=== PATIENT | male | born 1955 | race Caucasian/White ===

== ENCOUNTER 2021-04-14 13:08 | Emergency (ER) | payer OTHER, SELFPAY ==
--- NOTE | ~2021-04-14 | XR_ITS ---
EXAMINATION: XR chest 2V DATE: 04/14/2021 13:32 INDICATION: Left chest pain/pleurisy TECHNIQUE: PA and lateral views of the chest were obtained. COMPARISON: Chest radiograph dated 03/31/[address] dated 03/09/2010 FINDINGS: Unchanged opacity at the lingula corresponding to a pericardial fat and associated lingular discoid a telectasis/scarring. No new airspace opacities, pulmonary edema, pleural effusion or pneumothorax. Si ze is normal. Mildly tortuous thoracic aorta. Moderate thoracic spondylosis with minimal anterior wed ging of a couple mid thoracic vertebral bodies. Postoperative changes at the right humeral head likel y related to prior rotator cuff repair. IMPRESSION: 1. Chronic atelectasis/scarring at the lingula. No acute cardiopulmonary disease. Reviewed, dictated and finalized at location B. IMPRESSION: 1. Chronic atelectasis/scarring at the lingula. No acute cardiopulmonary diseas e.
--- NOTE | 2021-04-14 13:15 | ED.CHESTPAIN ---
HPI - Chest Pain General Chief Complaint: Chest Pain Stated Complaint: L CHEST/SIDE/BACK PAIN Time Seen by Provider: 04/14/21 13:14 Source: patient and RN notes reviewed Limitations: no limitations History of Present Illness HPI narrative: The morbidly obese, vaccinated patient-who is a ex-smoker/nondrinker-- presents with left trunk/chest pains. Patient states he has a long medical history including prostate ca s/p prostatectomy, CHF, proximal A. fib, CKD . Now he has a nearly weeklong history of left axillary chest pain that is worse with breathing, movement or point palpation. Symptoms are mild, radiates somewhat to the scapula area, associated with mild cough that is slightly productive. No med noncompliance, fever, S OB, loss of taste/smell, calf pain/edema, vomiting/diarrhea, anterior/precordial CP, sneezing/ wheezing, frequency/dysuria/hematuria. EKG and chest x-ray with pain are noncontributory He has no known ASHD based upon stress test [ 2019 ,2010] .Patient advised to go to higher level care facility for higher level testing for vascular, cardiac, pulmonary causes-which he declines AMA. Related Data Home Medications Medication Instructions Recorded Confirmed allopurinol 04/14/21 bumetanide 04/14/21 dextroamphetamine-amphetamine 04/14/21 gabapentin 04/14/21 glimepiride 04/14/21 spironolactone 04/14/21 Allergies Allergy/AdvReac Type Severity Reaction Status Date / Time No Known Allergies Allergy Unknown Verified 05/15/06 19:47 Review of Systems Review of Systems: General/Constitutional: No weight loss,fever Eyes: N0: Redness,discharge Ears/Nose/Throat: No: Epistaxis,ear discharge Respiratory: Denies: Hemoptysis Gastrointestinal: No Vomiting, Bleeding-rectal Skin: No Lumps, eruption Neurologic: No Focal Weakness,Sz Hematologic: Denies: Petechiae/Purpura Psychiatric: No: Suicida ideationl All Other Systems: Reviewed and Negative PMFSH Comments At time of signature, agree with nursing past medical, surgical, social and family history. There is no relevant family history pertinent to the presenting complaint Exam Narrative: General Appearance: Obese, No distress-splints with deep breath EYE: PERRLA, Conjunctiva clear Ears: External ear normal Nose: Normal nose Mouth/Throat: Normal appearing, Normal lips Neck: Supple Respiratory: Airway patent, No respiratory distress, decreased BS at bases jannet left, scattered wheezing forced expiration increased AP diameter Cardiovascular: RRR, no edema, pulses symmetric Abdomen: Soft, Non-tender, Musculoskeletal: Full stength Skin: Warm, Dry Neurological: A&O x3, CN II-X intact Psychiatric: Normal mood, Normal affect Course Course Emergency Course: Films visualized, interpreted by radiologist, agree, noncontributory see report EKG?borderline: NSR at 72, LAD -30, QRS 0.10, QTC 0.415 Vital Signs Vital signs: Vital Signs Temperature 98.4 F 04/14/21 13:32 Pulse Rate 89 04/14/21 13:32 Respiratory Rate 18 04/14/21 13:32 Blood Pressure 114/89 04/14/21 13:32 Pulse Oximetry 96 04/14/21 13:32 Temperature 98.4 F 04/14/21 13:32 Pulse Rate 89 04/14/21 13:32 Respiratory Rate 18 04/14/21 13:32 Blood Pressure 114/89 04/14/21 13:32 Pulse Oximetry 96 04/14/21 13:32 MDM - Chest Pain Lab Data Labs: Lab Results 04/14/21 Range/Units 14:00 POC SARS CoV-2 Ag Negative (Negative) Discharge Plan Discharge Clinical Impression: Left-sided chest pain Patient Disposition: Left Against Medical Advice Condition: Guarded Prognosis Instructions: Chest Pain (ED), Pleurisy (ED) Prescriptions: New azithromycin 250 mg tablet See Rx Instructions .ROUTE .COMPLEX Qty: 6 RF: 0 prednisone 20 mg tablet 60 mg PO DAILY Qty: 15 RF: 0 albuterol sulfate [Ventolin HFA] 90 mcg/actuation HFA aerosol inhaler 2 puff INHALATION QID PRN (Reason: shortness of breath or wheezing) Qty: 8.5
[2021-04-14 13:32] VITALS: BP 114/89; PULSE 89; RESP 18; TEMP 36.9; O2SAT 96
--- NOTE | 2021-04-14 13:32 | ECG_ITS ---
Measurements Intervals [place] Rate: 72 P: -32 WA: 135 QRS: -27 QRSD: 105 T: 49 QT: 391 QTc: 429 Interpretive Statements SINUS RHYTHM NORMAL ECG Electronically Signed On 04-14-2021 13:45:00 CDT by Pete Finnegan D.O.
[2021-04-14] MEDS: KETOROLAC (*BKC) 60 MG/2 ML VIAL 30 MG IM (14:27)
--- NOTE | 2021-04-14 14:38 | PC.NURSE ---
Unable to scan Toradol 30 mg IM once into OCT when given. At that time there were duplicate toradol orders in. Pharmacy contacted, and removed additional orders. Aware that only the toradol 30 mg IM once was given.
[2021-04-15 20:01] LABS: SARS-CoV-2 RNA PCR Negative
== END 2021-04-14 15:03 | disposition left against medical advice (07) ==
PROVIDERS: Emergency Provider Emergency Medicine
DX: R07.89 Other chest pain (principal); Z20.822 Contact with and (suspected) exposure to COVID-19; I48.91 Unspecified atrial fibrillation; Z85.46 Personal history of malignant neoplasm of prostate; Z90.79 Acquired absence of other genital organ(s); I50.9 Heart failure, unspecified; E11.22 Type 2 diabetes mellitus with diabetic chronic kidney disease; N18.9 Chronic kidney disease, unspecified
CPT/HCPCS: 71046; 87426; 93005; 96372; 99203; C9803; G0463; J1885; U0003; U0005

== ENCOUNTER 2022-03-04 15:31 | Emergency (ER) | payer MEDICARE, BC, SELFPAY ==
--- NOTE | ~2022-03-04 | XR_ITS ---
EXAMINATION: XR hip LT min 2V DATE: 03/04/2022 16:18 INDICATION: Nontraumatic left hip pain TECHNIQUE: Anteroposterior view of the pelvis and anteroposterior, frog leg and cross-table lateral v iews of the left hip were obtained. COMPARISON: None. FINDINGS: Alignment is normal. No fracture. No suspected avascular necrosis. Left hip joint space appears cayetano l. IMPRESSION: 1. Negative left hip radiographs. Reviewed, dictated and finalized at location B.
--- NOTE | ~2022-03-04 | XR_ITS ---
XR lumbar spine 2-3V DATE: 03/04/2022 16:18 INDICATION: Back pain. No injury. TECHNIQUE: AP, lateral, coned lateral lumbosacral views COMPARISON: None FINDINGS: Normal alignment of the lumbar spine. No fracture or bone destruction or spondylolisthesis. The lumbar pedicles are intact. There is moderate degenerative disc disease at L1-2 and L2-3 and L3-4 and severe degenerative disease at L4-5 and L5-S1. There is degenerative change at the lower lumbar and lumbosacral apophyseal joints. The sacroiliac joints appear normal. IMPRESSION: Multilevel degenerative disc disease, severe at L4-5 and L5-S1 Reviewed, dictated and finalized at location A.
[2022-03-04 15:45] VITALS: BP 208/193; PULSE 85; RESP 16; TEMP 37; O2SAT 99
--- NOTE | 2022-03-04 15:46 | ED.BACK ---
HPI - Back Pain/Injury General Chief Complaint: Back Pain/Injury Stated Complaint: lower back and left hip pain Source: patient Mode of arrival: ambulatory Limitations: no limitations History of Present Illness HPI Narrative: 66-year-old male with chronic low back pain and hx DDD presented for complaint of bilateral lower back pain worsening since December of this year. States this pain is different from the chronic pain, states it feels lower. Also endorses left lateral hip pain. Denies new injury. Pain is constant, sharp, rates 6-10/10. Worse after sitting for long periods or sleeping. Has taken 2 pain pills, he thinks they are Tylenol #3, which he had prescribed for previous injury. Denies associated lower extremity numbness, tingling, weakness, saddle paresthesia or change in bowel or bladder function, abd pain, n/v/d/f/c. He has chronic urinary incontinence secondary to history of prostate cancer. Lives in [place], where his pcp is located. Related Data Home Medications Medication Instructions Recorded Confirmed allopurinol 300 mg tablet 300 mg PO DAILY 04/14/21 03/04/22 bumetanide 2 mg tablet 2 mg PO DAILY 04/14/21 03/04/22 gabapentin 300 mg capsule 2 mg PO TID 04/14/21 03/04/22 glimepiride 4 mg PO BID 04/14/21 03/04/22 spironolactone 25 mg tablet 25 mg PO BID 04/14/21 03/04/22 Allergies Allergy/AdvReac Type Severity Reaction Status Date / Time No Known Allergies Allergy Unknown Verified 03/04/22 15:48 Review of Systems Review of Systems: CONSTITUTIONAL: Denies fever, chills EYES: Denies visual changes CARDIOVASCULAR: Denies chest pain, palpitations, or edema. RESPIRATORY: Denies cough or dyspnea. GASTROINTESTINAL: Denies abdominal pain, nausea, vomiting, or diarrhea. SKIN: Denies rash or wounds. MUSCULOSKELETAL: endorses back pain, joint pain NEUROLOGIC: Denies headache, numbness, tingling, or weakness. All systems reviewed & are unremarkable except as noted in HPI and below PMFSH Comments At time of signature, I have reviewed and agree with nursing past medical, surgical, social and family history unless otherwise noted. Please see nursing chart for further information. There is no relevant family history pertinent to the presenting complaint Exam Narrative: GENERAL: Well-appearing, appears in pain EYES: conjunctivae clear CHEST: Speaks in full sentences. No respiratory distress. HEART: Regular rate and rhythm. Normal and equal peripheral pulses. MUSC: BLEs have normal strength and sensation, No vertebral point or paraspinal tenderness. Left hip tender with deep palpation at SI joint. No open wounds or obvious deformity; spinal alignment normal. skin warm, dry, pink. Capillary refill less than 3 seconds. Transfers from lying to sitting to standing. Steady slow gait. SKIN: Warm, dry, no rash. NEURO: Alert and oriented x3. PSYCH: Normal mood and affect Course Course Emergency Course: Patient is aware of diagnosis, understands and agrees to treatment plan. Anticipatory guidance given. Patient agrees to follow-up as directed and is aware of reasons to seek care at the emergency department. Portions of this record may have been created with voice recognition software Level of Care: Express Care Visit Vital Signs Vital signs: Vital Signs Temperature 98.6 F 03/04/22 15:45 Pulse Rate 85 03/04/22 15:45 Respiratory Rate 16 03/04/22 15:45 Blood Pressure 208/193 H 03/04/22 15:45 Pulse Oximetry 99 03/04/22 15:45 Temperature 98.6 F 03/04/22 15:48 Pulse Rate 85 03/04/22 15:48 Respiratory Rate 16 03/04/22 15:48 Blood Pressure 208/193 H 03/04/22 15:48 Pulse Oximetry 99 03/04/22 15:48 Reviewed MDM - Back Pain/Injury MDM Narrative Medical decision making narrative: Xrays reviewed with pt. advised supportive measures for pain and signs/symptoms to go to the ER. No risk factors or findings concerning for epidural abscess, diskitis, vertebral osteomyelitis, cord compression,
[2022-03-04 15:48] VITALS: BP 208/193; PULSE 85; RESP 16; TEMP 37; O2SAT 99
[2022-03-04] MEDS: KETOROLAC (*BKC) 60 MG/2 ML VIAL IM (16:22)
[2022-03-04 16:58] VITALS: BP 128/90
== END 2022-03-04 17:07 | disposition home or self-care (01) ==
PROVIDERS: Emergency Provider Nurse Practitioner Family
DX: M54.50 Low back pain, unspecified (principal); M25.552 Pain in left hip; I50.9 Heart failure, unspecified; Z86.16 Personal history of COVID-19; M19.90 Unspecified osteoarthritis, unspecified site; E11.9 Type 2 diabetes mellitus without complications; Z90.79 Acquired absence of other genital organ(s)
CPT/HCPCS: 72100; 73502; 96372; 99214; G0463; J1885

== ENCOUNTER 2023-02-24 11:35 | Emergency (ER) | payer MEDICARE, BC, SELFPAY ==
--- NOTE | ~2023-02-24 | XR_ITS ---
EXAMINATION: XR chest 2V DATE: 02/24/2023 12:11 INDICATION: Shortness of breath. Chest congestion. Cough. TECHNIQUE: Frontal and lateral views of the chest were obtained on 3 radiographs. COMPARISON: Chest 2 views 04/14/2021 FINDINGS: The chest demonstrates clear lungs without pneumonia, pleural effusion, or pneumothorax. Th e heart size is normal. There are prominent paracardial fat pads. There are suture anchors in right h umeral head. IMPRESSION: 1. No acute cardiopulmonary disease. Reviewed, dictated and finalized at location A.
[2023-02-24 11:53] VITALS: BP 108/72; PULSE 81; RESP 20; TEMP 36.6; O2SAT 95
--- NOTE | 2023-02-24 11:58 | ED.URI ---
HPI - URI/Sore Throat General Chief Complaint: Upper Respiratory Infection Stated Complaint: Chest congestion; Pain in chest; SOB Time Seen by Provider: 02/24/23 11:58 Source: patient Mode of arrival: ambulatory Limitations: no limitations History of Present Illness HPI Narrative: 67-year-old male with history of congestive heart failure, high blood pressure presents today with complaint of cough, chest congestion for the past 2 weeks. He reports symptoms became worse the past 2 days with shortness of breath on exertion. Afebrile. Denies nasal congestion, sinus pressure, sore throat, ear pain. Taking titr-wzb-ycqmxla Mucinex with no relief of symptoms. Denies nausea vomiting diarrhea. No recent changes to medication doses. Patient states that he weighs himself often due to his congestive heart failure. He reports that he has never had an exacerbation of his CHF. No recent changes to his weight. No lower extremity swelling. All systems reviewed and negative except as noted above. Related Data Home Medications Medication Instructions Recorded Confirmed allopurinol 300 mg tablet 300 mg PO DAILY 04/14/21 02/24/23 bumetanide 2 mg tablet 2 mg PO DAILY 04/14/21 02/24/23 gabapentin 300 mg capsule 2 mg PO TID 04/14/21 02/24/23 glimepiride 4 mg PO BID 04/14/21 02/24/23 spironolactone 25 mg tablet 25 mg PO BID 04/14/21 02/24/23 Allergies Allergy/AdvReac Type Severity Reaction Status Date / Time No Known Allergies Allergy Unknown Verified 02/24/23 11:48 Review of Systems Review of Systems: CONSTITUTIONAL: Denies fever, chills, or sweats. EYES: Denies visual changes, redness, or discharge. ENT: Denies rhinorrhea, congestion, sore throat, or otalgia. CARDIOVASCULAR: Denies chest pain, palpitations, or edema. RESPIRATORY: Reports cough, chest congestion and dyspnea on exertion. GASTROINTESTINAL: Denies abdominal pain, nausea, vomiting, or diarrhea. GENITOURINARY: Denies dysuria or hematuria. SKIN: Denies rash or itching. MUSCULOSKELETAL: Denies back pain, joint pain, or myalgia. NEUROLOGIC: Denies headache, numbness, or weakness. PSYCHIATRIC: Denies anxiety or depression. All other systems reviewed are negative, except as documented in HPI. PMFSH Comments At time of signature, agree with nursing past medical, surgical, social and family history. There is no relevant family history pertinent to the presenting complaint. Exam Narrative: GENERAL: This is a well-nourished, well-developed patient, in no apparent distress. HEAD: normocephalic, atraumatic. EYES: PERRL. Sclera clear/white. Vision is grossly intact. EARS: External ears normal, auditory canals clear and without drainage, TMs normal without perforation. Hearing grossly intact. NOSE: External nose normal with no obvious nasal discharge, nares without redness, no rhinorrhea. THROAT: Mucous membranes moist, posterior pharynx clear. NECK: Neck supple, non-tender without lymphadenopathy, masses or thyromegaly. CARDIOVASCULAR: Regular rate and rhythm without murmurs, gallops, or rubs. RESPIRATORY: wet, coarse lung sounds throughout all lung gaitan on inspiration and expiration. No wheezes. SKIN: warm, Dry, intact with no suspicious lesions or rash, good texture and turgor. NEURO: awake, alert, and oriented to person, place and time. There were no obvious focal neurologic abnormalities. EXTREMITIES: No joint tenderness, effusion, or edema noted. Course Course Level of Care: Express Care Visit Vital Signs Vital signs: Vital Signs Temperature 36.6 C 02/24/23 11:53 Pulse Rate 81 02/24/23 11:53 Respiratory Rate 02/24/23 11:53 Blood Pressure 108/72 02/24/23 11:53 Pulse Oximetry 95 02/24/23 11:53 Temperature 36.6 C 02/24/23 11:53 Pulse Rate 81 02/24/23 11:53 Respiratory Rate 20 02/24/23 11:53 Blood Pressure 108/72 02/24/23 11:53 Pulse Oximetry 95 02/24/23 11:53 Reviewed MDM - URI/Sore Throat MDM Narrative Medic
[2023-02-24] MEDS: ALBUTEROL SULFATE NEB 2.5 MG/3 ML INH INHALATION (12:47)
== END 2023-02-24 13:06 | disposition home or self-care (01) ==
PROVIDERS: Emergency Provider Nurse Practitioner Family
DX: J20.9 Acute bronchitis, unspecified (principal); M19.90 Unspecified osteoarthritis, unspecified site; I13.0 Hypertensive heart and chronic kidney disease with heart failure and stage 1 through stage 4 chronic kidney disease, or unspecified chronic kidney disease; E11.22 Type 2 diabetes mellitus with diabetic chronic kidney disease; N18.31 Chronic kidney disease, stage 3a; I50.9 Heart failure, unspecified; Z79.84 Long term (current) use of oral hypoglycemic drugs; E11.42 Type 2 diabetes mellitus with diabetic polyneuropathy; Z90.79 Acquired absence of other genital organ(s); Z86.16 Personal history of COVID-19
CPT/HCPCS: 71046; 94640; 99213; G0463

== ENCOUNTER 2024-07-27 18:11 | Emergency (ER) | payer MEDICARE, BC, SELFPAY ==
--- NOTE | ~2024-07-27 | XR_ITS ---
EXAMINATION: XR shoulder LT min 2V DATE: 07/27/2024 18:56 INDICATION: Fall. TECHNIQUE: 4 views of left shoulder were obtained. COMPARISON: None. FINDINGS: Alignment is normal. No fracture. There is mild osteoarthritis of glenohumeral joint and ac romioclavicular joint. IMPRESSION: 1. Mild polyarticular osteoarthritis. Reviewed, dictated and finalized at location A. PRESS HAND
[2024-07-27 18:23] VITALS: BP 115/63; PULSE 93; RESP 16; TEMP 36.6; O2SAT 98
--- NOTE | 2024-07-27 18:48 | ED_ITS ---
HPI - Extremity Injury (Upper) General Chief Complaint: Extremity Injury, Upper Stated Complaint: Left Shoulder Pain Time Seen by Provider: 07/27/24 18:29 Source: patient and RN notes reviewed Mode of arrival: ambulatory Limitations: no limitations History of Present Illness HPI narrative: Patient presents today complaining of left shoulder pain. Two days ago he was coming down some steps into his garage, slipped and fell onto his left side, primarily on the elbow. He is complaining of left shoulder pain that he currently rates it 3/10 at rest, but increases significantly with movement. Denies numbness or tingling in the arm or fingers. He has not tried any [id number]-[id number] treatment prior to arrival. Related Data Home Medications Medication Instructions Recorded Confirmed allopurinol 300 mg tablet 300 mg PO DAILY 04/14/21 02/24/23 bumetanide 2 mg tablet 2 mg PO DAILY 04/14/21 02/24/23 gabapentin 300 mg capsule 2 mg PO TID 04/14/21 02/24/23 glimepiride 4 mg PO BID 04/14/21 02/24/23 spironolactone 25 mg tablet 25 mg PO BID 04/14/21 02/24/23 Allergies Allergy/AdvReac Type Severity Reaction Status Date / Time No Known Allergies Allergy Unknown Verified 02/24/23 11:48 Review of Systems Review of Systems: CONSTITUTIONAL: Denies body aches, fever, chills, or sweats. EYES: Denies visual changes, redness, or discharge. ENT: Denies rhinorrhea, congestion, sore throat, or otalgia. CARDIOVASCULAR: Denies chest pain, palpitations, or edema. RESPIRATORY: Denies cough or dyspnea. GASTROINTESTINAL: Denies abdominal pain, nausea, vomiting, or diarrhea. GENITOURINARY: Denies dysuria or hematuria. SKIN: Denies rash, itching, or wounds. MUSCULOSKELETAL: Denies back pain.+ left shoulder injury NEUROLOGIC: Denies headache, numbness, tingling, or weakness. PSYCH: Denies depression or anxiety. [facility] Past Medical History Medical History (Updated 07/28/24 @ 00:01 by Background Daemon) Diabetes Gout Comments At time of signature, I have reviewed and agree with nursing past medical, surgical, social and family history unless otherwise noted. Please see nursing chart for further information. There is no relevant family history pertinent to the presenting complaint Exam Narrative: GENERAL: Well-appearing, well-nourished, and in no acute distress. HEAD: Normocephalic, atraumatic. EYES: EOMI. No redness or drainage. Conjunctivae normal. ENT: Mucous membranes pink and moist. NECK: Normal AROM. Supple. No lymphadenopathy. No tenderness to the neck. CHEST: No respiratory distress. MUSCULOSKELETAL: No bony tenderness. EXTREMITIES: Left shoulder: Tenderness anteriorly and posteriorly. Pain with range of motion at approximately 90? P ROM. Pain with internal and external rotation passively. Distal sensation intact. Capillary refill normal. Radial pulse normal. No tenderness to palpation of the biceps or triceps. SKIN: Warm, dry, no rash. Capillary refill normal. Normal skin turgor. NEURO: No focal deficits. Alert and oriented x3. Gait steady. PSYCH: Normal affect. No signs of depression or anxiety. Course Course Emergency Course: 1909- Notified that PACS system not working. Unable to receive patient's x-ray report tonight. He will be discharged and call tomorrow with results. 07/28/24-patient notified of x-ray results. Level of Care: Express Care Visit Vital Signs Vital signs: Vital Signs Temperature 97.9 F 07/27/24 18:23 Pulse Rate 93 07/27/24 18:23 Respiratory Rate 16 07/27/24 18:23 Blood Pressure 115/63 07/27/24 18:23 Pulse Oximetry 98 07/27/24 18:23 Temperature 97.9 F 07/27/24 18:23 Pulse Rate 93 07/27/24 18:23 Respiratory Rate 16 07/27/24 18:23 Blood Pressure 115/63 07/27/24 18:23 Pulse Oximetry 98 07/27/24 18:23 Reviewed MDM - Extremity Injury (Upper) MDM Narrative Medical decision making narrative: Shoulder x-ray shows mild arthritis, but is otherwise normal. Patient has been instructed to follow-up with orthopedics for further evaluation and treatment. Anticipatory guidance given. Differential Diagnosis Differential diagnosis: Likely other (Humerus fracture, rotator cuff sprain, rotator cuff tear) Imaging Data Radiologist's impression: ITS Impressions Shoulder X-Ray 07/27/24 20:30 IMPRESSION: 1. Mild polyarticular osteoarthritis. Critical Care Time Critical Care Time Critical Care Time: No Discharge Plan Discharge Clinical Impression: Injury of left shoulder Patient Disposition: Home, Self-Care Condition: Stable Instructions: Rotator Cuff Injury (ED) Additional Instructions: As discussed, your x-ray report cannot be obtained tonight, but tomorrow you will be notified as soon as the report is available. Take Tylenol for pain if needed. Follow-up with orthopedics if pain persists. Prescriptions: No Action bumetanide 2 mg tablet 2 mg PO DAILY spironolactone 25 mg Tablet 25 mg PO BID gabapentin 300 mg Capsule 2 mg PO TID allopurinol 300 mg tablet 300 mg PO DAILY glimepiride 4 mg PO BID tramadol 50 mg tablet 50 mg PO Q8H PRN (Reason: pain) Qty: 15 0RF albuterol sulfate 90 mcg/actuation HFA aerosol inhaler 2 puff inhalation QID PRN (Reason: shortness of breath or wheezing) Qty: 8.5 0RF (DME) Aerochamber Plus Z Stat Spacer See Rx Instructions .Route Qty: 1 0RF Rx Instructions: As directed doxycycline hyclate 100 mg capsule 100 mg PO BID 7 Days Qty: 14 0RF prednisone 20 mg tablet 40 mg PO DAILY 5 Days Qty: 10 0RF Follow-up/Referrals: Jeff Desai MD [Physician] - PHYSICIAN,[employer] WORKER [Primary Care Provider] - Time of Disposition: 19:23
== END 2024-07-27 19:24 | disposition home or self-care (01) ==
PROVIDERS: Emergency Provider Nurse Practitioner
DX: S49.92XA Unspecified injury of left shoulder and upper arm, initial encounter (principal); W10.9XXA Fall (on) (from) unspecified stairs and steps, initial encounter; E11.9 Type 2 diabetes mellitus without complications; M10.9 Gout, unspecified
CPT/HCPCS: 73030; 99213; G0463

== ENCOUNTER 2025-02-26 12:58 | Emergency (ER) | payer MEDICARE, BC, SELFPAY ==
--- NOTE | ~2025-02-26 | CT_ITS ---
EXAMINATION: CTA chest abdomen pelvis DATE: 02/26/2025 14:53 INDICATION: Chest pain radiating to the back TECHNIQUE: Computed tomographic angiography (CTA) of the chest, abdomen, and pelvis was performed wit hout and with 100 mL Omnipaque-350 intravenous contrast. Automated exposure control and iterative rec onstruction technique were employed. The dose-length product was 1652.51 mGy-cm. COMPARISON: CT dated 03/09/2010 FINDINGS: Chest: Discoid atelectasis in lingula along side a small left paracardial fat pad with additional smaller re gion of scattered linear discoid atelectasis in both lungs. Chronic mosaic attenuation in both lungs most likely atelectasis with mild air trapping related to expiratory phase of imaging with convex con figuration of the posterior wall of the trachea and with differential including bronchiolitis. Unchan ged 5 mm noncalcified granulomata the lateral basilar right lower lobe. No pneumonia, pulmonary edema , pleural effusion or pneumothorax. Heart size is normal. No pericardial effusion. Thoracic aorta is normal in caliber with no dissection. Enlargement of the central pulmonary arteries consistent with p ulmonary arterial hypertension. No pathologically enlarged thoracic lymphadenopathy. Severe lower cer vical and moderate to severe thoracic spondylosis. Abdomen and pelvis: Diffuse hepatic steatosis with 3.2 cm subtle higher attenuation lesion in the right hepatic lobe whic h appears to been present on CT dated 03/09/2010 consistent with a benign lesion most likely focal fat ty sparing. Spleen, pancreas and bilateral adrenal glands are normal. Likely age-related mild bilater al renal atrophy. Status post prostatectomy. Bladder is normal. Bowels including the appendix are nor mal. Incompletely visualized at least moderate-sized bilateral fat-containing inguinal hernias. No fr ee intraperitoneal gas or fluid. No pathologically enlarged abdominal or pelvic lymphadenopathy. [place] aorta and the arteries arising from the aorta are normal in caliber with no dissection or hemod ynamically significant stenosis. Severe lumbar spondylosis. IMPRESSION: 1. Normal caliber thoracic and abdominal aorta with no or aneurysm or dissection. 2. Unchanged mild mosaic attenuation lungs likely related to expiratory phase of imaging. No acute ca rdiopulmonary disease. 3. Prominent diffuse hepatic steatosis with 3.2 cm lesion in the right hepatic lobe which appears to been present since 2009 most consistent with benign neoplasm or more likely focal fatty sparing. Coul d consider further evaluation with pre and postcontrast MRI as clinically indicated. 4. Bilateral fat-containing inguinal hernias. Reviewed, dictated and finalized at location A. IMPRESSION: 1. Normal caliber thoracic and abdominal aorta with no or aneurysm or dissectio n. 2. Unchanged mild mosaic attenuation lungs likely related to expiratory phase o f imaging. No acute cardiopulmonary disease. 3. Prominent diffuse hepatic steatosis with 3.2 cm lesion in the right hepatic lobe which appears to been present since 2009 most consistent with benign neopl asm or more likely focal fatty sparing. Could consider further evaluation with pre and postcontrast MRI as clinically indicated. 4. Bilateral fat-containing inguinal hernias.
--- NOTE | ~2025-02-26 | XR_ITS ---
EXAM/PROCEDURE: XR chest 2V - 02/26/2025 13:20 CDT HISTORY: 69 years old Male with cp TECHNIQUE: Two view(s) of the chest. COMPARISON: None available. FINDINGS: LUNGS/ PLEURA: No focal consolidation. No appreciable pneumothorax or large pleural effusion. HEART/ MEDIASTINUM: Heart appears normal in size. BONES: Degenerative changes. Postsurgical changes are seen in the right humerus. OTHER: Visualized upper abdomen is unremarkable. Tortuous aorta. IMPRESSION: No acute process. Reviewed, dictated and finalized at location A. IMPRESSION: No acute process.
--- NOTE | 2025-02-26 12:59 | ECG_ITS ---
Test Date: 2025-02-26 13:04:30 Measurements Intervals [place] Rate: 75 P: 67 [place]: 146 QRS: -34 QRSD: 109 T: 63 QT: 385 QTc: 430 Interpretive Statements SINUS RHYTHM WITH OCCASIONAL SUPRAVENTRICULAR PREMATURE COMPLEXES MARKED LEFT AXIS DEVIATION [QRS AXIS < -30] POSSIBLE LATERAL MYOCARDIAL INFARCTION , PROBABLY OLD [30 ms Q WAVE IN I/aVL/V5/V6] No previous ECG available for comparison Electronically Signed On 02-27-2025 11:33:45 CDT by Sudarshan Field M.D.
[2025-02-26 13:00] VITALS: BP 105/65; PULSE 83; RESP 16; TEMP 36.6; O2SAT 97
--- OUTSIDE RECORDS SUMMARY | 2025-02-26 13:01 | XMS_ITS | Patient Health Record ---
Author Organization [facility] Address [address] [place] [address] Care Team Providers Care Historic Interpreter Name Role Phone Norris Ayala Unavailable [phone] Kameron Lopez PA-C Unavailable Unavailable Reason For Referral No Information Medications Medication SIG (Take, Route, Frequency, Duration) Notes Start Date End Date Status Spironolactone Activ e Glimepiride Active Iron Active Sildenafil Citrate 20 MG Tablet once a day Oral once a day 10/27/2016 Not-Taking metFORMIN HCl 1000 MG Tablet Oral 10/17/2016 Not-Taking Potassium Chloride ER 10 MEQ Capsule Extended Release Oral 10/14/2016 Not-Taking Furosemide 80 MG Tablet Oral 04/07/2014 Active Triamterene-HCTZ 75-50 MG Tablet Oral 04/07/2014 Active Allopurinol 300 MG Tablet Oral 04/07/2014 Active Bumetanide 2 MG Tablet Oral 10/17/2016 Active Social History Social History Tobacco and Alcohol Use: Social Info Question Answer Notes Tobacco Use Tobacco Use None Alcohol Use Current Alcohol Use: No Problems Problem Type SNOMED Code ICD Code Onset Dates Problem Status W/U Status Risk Notes Problem Malignant neoplasm of prostate (090131874) Malignant neoplasm of prostate (C61) 04/25/20 14 Active confirmed [id number] Problem Erectile dysfunction following radical prostatectomy (460220631987562) Erectile dysfunction following radical prostatectomy (N52.31) 01/02/20 15 Active confirmed [id number]- Problem Postprocedural membranous urethral stricture (610960908204509) 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) 10/20/19 17 Active confirmed [id number]- Problem Gross hematuria (542166752) Gross hematuria (R31.0) 10/20/19 17 Active confirmed [id number]- Problem Frequency of micturition (660512006) Frequency of micturition (R35.0) 10/28/19 17 Active confirmed [id number]- Problem Nodular prostate w/ urinary obstruction (600.11) 04/03/20 14 Active confirmed [id number]- Problem Elevated PSA (941592004) Elevated PSA (790.93) 04/03/20 14 Problem resolved confirmed [id number]- Plan Of Treatment Pending Test Test Name Order Date Urinalysis 02/24/2020 Insurance Providers Payer Name Payer Address Payer Phone Subscriber Number Group Number Insured Name Patient Relationship to Insured Coverage Start Date Coverage End Date Medicare [address] [place] [address] [id number] Norris Paz Self - patient is the insured [facility] and [facility] [address] [place], [place] [phone] [id number] Norris Paz Self - patient is the insured Medical (General) History Medical History History ICD Code CHF PHA type 2 diabetes kidney disease Surgical History Surgery Date(Month/Year) prostatectomy
--- OUTSIDE RECORDS SUMMARY | 2025-02-26 13:02 | XMS_ITS | Referral Summary ---
Author Organization [address] Address [address] [place] [address] Care Team Providers Care Mexican Food Maker Name Role Phone Braden Mckeon MD Primary Care Provi olinda Encounters Date Type Department Care Team Description 02/16/2025 Results Follow-Up [facility] Medical [facility] Primary Care at [address] [id number] Braden Mckeon MD PSA screen, Lipid panel, CBC with auto differential, Additional followed-up results: 11 02/13/2025 2:40 PM CDT Lab [facility] - [facility] at [place] [id number] Screening PSA (prostate specific antigen); Type 2 diabetes mellitus without complication, without long-term current use of insulin (HCC); Inflammatory arthritis; Chronic gout without tophus, unspecified cause, unspecified site 02/13/2025 2:00 PM CDT Office Visit [facility] Primary Care at [address] [place] [address] Braden Mckeon MD Type 2 diabetes mellitus without complication, without long-term current use of insulin (HCC) (Primary Dx); Chronic gout without tophus, unspecified cause, unspecified site; Chronic systolic congestive heart failure (HCC); Class 2 severe obesity due to excess calories with serious comorbidity and body mass index (BMI) of 38.0 to 38.9 in adult (HCC); Inflammatory arthritis; Paroxysmal atrial fibrillation (HCC); Screening PSA (prostate specific antigen) from Last 3 Months Allergies No known active allergies Medications bumetanide (BUMEX) 2 mg tablet Take 1 tablet (2 mg total) by mouth 2 (two) times a day Active gabapentin (NEURONTIN) 600 mg tablet Take 1 tablet (600 mg total) by mouth 3 (three) times a day Active glimepiride (AMARYL) 4 mg tabletIndications: type 2 diabetes mellitus Take 1 tablet (4 mg total) by mouth 2 (two) times a day Active spironolactone (ALDACTONE) 25 mg tablet Take 1 tablet (25 mg total) by mouth 2 (two) times a day Active allopurinoL (ZYLOPRIM) 300 mg tablet Take 1 tablet (300 mg total) by mouth daily Active rosuvastatin (CRESTOR) 20 mg tabletIndications: Mixed hyperlipidemia Take 1 tablet (20 mg total) by mouth daily 90 tablet 1 5 08/17/20 25 Active metFORMIN (GLUCOPHAGE) 500 mg tabletIndications: Type 2 diabetes mellitus without complication, without long-term current use of insulin ([facility]) Take 1 tablet (500 mg total) by mouth 2 (two) times a day with meals 180 tablet 1 5 08/17/20 25 Active dextroamphetamine- amphetamine (ADDERALL) 20 mg tablet Take 1 tablet (20 mg total) by mouth daily 30 tablet 5 03/27/20 25 Active dextroamphetamine- amphetamine (ADDERALL) 20 mg tablet 0 5 02/26/20 25 Discontinu ed(Reorder ) Active Problems Problem Noted Date Diagnosed Date Type 2 diabetes mellitus wit hout complication, without long-term current use of insulin 02/13/2025 Assessment & Plan (02/13/2025 2:28 PM CDT): Orders: Lipid panel; Future Comprehensive metabolic panel; Future Hemoglobin A1c; Future C-peptide; Future TSH; Future Chronic systolic congestive heart failure 2024 Assessment & Plan (02/13/2025 2:28 PM CDT): Chronic gout without tophus 02/13/2025 Assessment & Plan (02/13/2025 2:28 PM CDT): Orders: Uric acid; Future Class 2 severe obesity due t o excess calories with serious comorbidity and body mass index (BMI) of 38.0 to 38.9 in adult 02/13/2025 Assessment & Plan (02/13/2025 2:28 PM CDT): Paroxysmal atrial fibrillation 02/13/2025 Assessment & Plan (02/13/2025 2:28 PM CDT): Inflammatory arthritis 02/13/2025 Assessment & Plan (02/13/2025 2:28 PM CDT): Orders: CBC with auto differential; Future NATASHA ab ql w/rflx to NATASHA qn; Future Erythrocyte sedimentation rate; Future Cyclic citrul peptide antibody, IgG; Future CRP (acute phase); Future Immunizations Immunization Administration Dates Next Due Influenza, Unspecified 05/30/2024(Deferred: Louise ent Refused) Social History Tobacco Use Types Packs/Day Years Used Date Smoking Tobacco: Never Passive Smoke Exposure: Never Smokeless Tobacco: Never Tobacco Cessation:Counseling Given: Not Answered PHQ-2 Answer Date Recorded PHQ-2 Total Score (If total score is 3 or more points, staff should administer the PHQ-9) 0 02/13/2025 PHQ-9 Answer Date Recorded PHQ-9 Total Score 0 02/13/2025 Sex and Gender Information Value Date Recorded Sex Assigned at Not on file Legal Sex Male 4:50 PM [employer]IST[employer] Gender Identity Not on file Sexual Orientation Not on file Last Filed Vital Signs Vital Sign Reading Time Taken Comments Blood Pressure 102/60 02/13/2025 1:45 PM CDT Pulse 95 02/13/2025 1:45 PM CDT Temperature - - Respiratory Rate - - Oxygen Saturation 95% 02/13/2025 1:45 PM CDT Inhaled Oxygen Concentration - - Weight 127.5 kg (281 lb) 02/13/2025 1:45 PM CDT Height 182.9 cm (6') 02/13/2025 1:45 PM CDT Body Mass Index 38.11 02/13/2025 1:45 PM CDT Plan of Treatment Not on file Procedures Procedure Name Priority Date/Time Associated Diagnosis Comments EGFR Routine 02/13/2025 2:47 PM CDT Type 2 diabetes mellitus without complication, without long-term current use of insulin (HCC) DIFFERENTIAL AUTO Routine 02/13/2025 2:4 7 PM CDT Inflammatory arthritis CRP (ACUTE PHASE) Routine 02/13/2025 2:4 7 PM CDT Inflammatory arthritis CYCLIC CITRUL PEPTIDE ANTIBODY, IGG Routine 02/13/2025 2:47 PM CDT Inflammatory arthritis ERYTHROCYTE SEDIMENTATION RATE Routine 02/13/2025 2:47 PM CDT Inflammatory arthritis NATASHA QUALITATIVE WITH REFLEX TO NATASHA QUANTITATIVE Routine 02/13/2025 2:47 PM CDT Inflammatory arthritis TSH Routine 02/13/2025 2:47 PM CDT Type 2 diabetes mellitus without complication, without long-term current use of insulin (HCC) C-PEPTIDE Routine 02/13/2025 2:47 PM CDT Type 2 diabetes mellitus without complication, without long-term current use of insulin (HCC) URIC ACID Routine 02/13/2025 2:47 PM CDT Chronic gout without tophus, unspecified cause, unspecified site HEMOGLOBIN A1C Routine 02/13/2025 2:47 PM CDT Type 2 diabetes mellitus without complication, without long-term current use of insulin (HCC) COMPREHENSIVE METABOLIC PANEL Routine 02/13/2025 2:47 PM CDT Type 2 diabetes mellitus without complication, without long-term current use of insulin (HCC) CBC WITH AUTO DIFFERENTIAL Routine 02/13/2025 2:47 PM CDT Inflammatory arthritis LIPID PANEL Routine 02/13/2025 2:47 PM CDT Type 2 diabetes mellitus without complication, without long-term current use of insulin (HCC) PSA SCREEN Routine 02/13/2025 2:47 PM CDT Screening PSA (prostate specific antigen) from Last 3 Months Results * NATASHA ab ql w/rflx to NATASHA qn (02/13/2025 2:47 PM CDT) NATASHA Negative Comment: Interpretive Data Normal range for NATASHA Qualitative Antibody = Negative. 1. NATASHA is performed using indirect immunofluorescence against HEp-2 cells 2. NATASHA titers are performed on all positive qualitative results. 3. A significantly positive NATASHA result is defined as a positive nuclear fluorescence at a titer of 1:80 or greater. 4. 15% of normal people above age 65 have significantly positive NATASHA results. 5% or less of normal people age 65 or under have significantly positive NATASHA results. Current interpretive data was last revised on 2020. Testing performed by: [facility], [address] [place]., [address] Blood 02/13/2025 2:47 PM CDT 02/14/2025 10:20 AM CDT us Braden Mckeon MD LAB BLOOD ORDERABLE S Final Result LUNA [address] Department [place] [address] * (ABNORMAL) eGFR (02/13/2025 2:47 PM CDT) eGFR 48(L) >=60 mL/min/1. 73 m2 Comment: Interpretive Data Reference Interval Normal >/= 90 mL/min/1.73m2 Mildly decreased* 60 - 89 mL/min/1.73m2 Mildly to moderately decreased 45 - 59 mL/min/1.73m2 Moderately to severely decreased 30 - 44 mL/min/1.73m2 Severely decreased 15 - 29 mL/min/1.73m2 Kidney Failure < 15 mL/min/1.73m2 *Relative to young adult level Estimated glomerular filtration rate is determined by the 2020 CKD-EPI equation recommended by the National Kidney Foundation (A Unifying Approach to GFR Estimation: Recommendations of the NKF-ASK Task Force on Reassessing the Inclusion of Race in Diagnosing Kidney Disease, JASN 202). The CKD-EPI equation should not be used for patients with unstable renal function and has not been validated in children and those over 70. Current interpretive data was last reviewed 2021. Testing performed by: [address] [address] Blood 02/13/2025 2:47 PM CDT 02/13/2025 8:04 PM CDT us Braden Mckeon MD LAB BLOOD ORDERABLE S Final Result [address] Department [place] [address] * Differential, auto (02/13/2025 2:47 PM CDT) Neutrophil abs 5.99 1.50 - 6.50 K/cumm Comment:Testing performed by : [address] [address] Imm gran abs 0.09 0.00 - 0.10 K/cumm [facility] Comment:Testing performed by : [address] [address] Lymphocyte abs 2.11 0.80 - 3.30 K/cumm [facility] Comment:Testing performed by : [address] [address] Monocyte abs 0.55 0.20 - 0.80 K/cumm [facility] Comment:Testing performed by : [address] [address] Eosinophil abs 0.25 0.00 - 0.50 K/cumm [facility] Comment:Testing performed by : [address] [address] Basophil abs 0.06 0.00 - 0.10 K/cumm [facility] Comment:Testing performed by : [address] [address] Neutrophil pct 66.1 % CERNER CH Comment: Interpretive Data Percent cell count reference ranges are not reported, since discordance with absolute values may lead to misinterpretation of CBC data. Current Interpretive Data was last revised on 2017. Testing performed by: [facility], [address] [place] [address]., [address] Imm gran pct 1.0 % CERNER CH Comment: Interpretive Data Percent cell count reference ranges are not reported, since discordance with absolute values may lead to misinterpretation of CBC data. Current Interpretive Data was last revised on 2017. Testing performed by: [address] [address] Lymphocyte pct 23.3 % CERNER CH Comment: Interpretive Data Percent cell count reference ranges are not reported, since discordance with absolute values may lead to misinterpretation of CBC data. Current Interpretive Data was last revised on 2017. Testing performed by: [address] [address] Monocyte pct 6.1 % [facility]ERN[facility] CH Comment: Interpretive Data Percent cell count reference ranges are not reported, since discordance with absolute values may lead to misinterpretation of CBC data. Current Interpretive Data was last revised on 2017. Testing performed by: [address] [address] Eosinophil pct 2.8 % [facility] CH Comment: Interpretive Data Percent cell count reference ranges are not reported, since discordance with absolute values may lead to misinterpretation of CBC data. Current Interpretive Data was last revised on 2017. Testing performed by: [address] [address] Basophil pct 0.7 % [facility]ERNER CH Comment: Interpretive Data Percent cell count reference ranges are not reported, since discordance with absolute values may lead to misinterpretation of CBC data. Current Interpretive Data was last revised on 2017. Testing performed by: [address] [address] Blood 02/13/2025 2:47 PM CDT 02/13/2025 7:34 PM CDT Braden Mckeon MD LAB BLOOD ORDERABLE S Final Result Performing Organization Address [facility] Co de Phone Number LUNA UNDER[place]OD [address] Department [place] [address] * PSA screen (02/13/2025 2:47 PM CDT) Pathologist [facility] PSA-Total <0.01 <=5.40 ng/mL Comment: Interpretive Data AGE SEX REFERENCE INTERVAL 0 minutes-150 years Female None 0 minutes-49 years Male None 50-59 years Male 0-3.90 60-69 years Male 0-5.40 70-79 years Male 0-6.20 80-150 years Male 0-6.20 The Selvin PSA Total assay procedure was used. Results from different manufacturers or methods may not be comparable. Serial testing should be performed using the same method. Current interpretive data last revised 21. Testing performed by: [address] [address] Blood 02/13/2025 2:47 PM CDT 02/13/2025 7:34 PM CDT Braden Mckeon MD LAB BLOOD ORDERABLE S Final Result Performing Organization Address [facility] Co de Phone Number LUNA UNDER[place]OD [address] Department [place] [place] [address] * (ABNORMAL) CBC with auto differential (02/13/2025 2:47 PM CDT) [facility] WBC 9.05 3.80 - 9.90 K/cumm Comment:Testing performed by : [address] [address] Hgb 12.8(L) 13.0 - 17.5 g/dL LUNA Comment:Testing performed by : [address] [address] Hct 39.9 38.9 - 50.3 % LUNA Comment:Testing performed by : [address] [address] Plt 242 150 - 400 K/cumm LUNA Comment:Testing performed by : [address] [place]., [address] MPV 10.2 9.1 - 12.3 fL CERNER CH Comment:Testing performed by : [facility], [address] [place] [address], [address] RBC 4.15(L) 4.30 - 5.80 M/cumm C[facility] CH Comment:Testing performed by : [facility], [address] [place] [address], [address] MCV 96.1 81.3 - 96.4 fL [facility] CH Comment:Testing performed by : [facility], [address] [place] [address], [address] MCH 30.8 27.1 - 33.3 pg CERNER CH Comment:Testing performed by : [facility], [address] [place] [address], [address] MCHC 32.1(L) 32.3 - 35.7 g/dL [facility]ERNER CH Comment:Testing performed by : [address], [address] RDW CV 13.8 11.1 - 14.9 % CERNER CH Comment:Testing performed by : [facility], [address] [place] [address], [address] RDW SD 48.8(H) 35.7 - 48.1 fL [facility] CH Comment:Testing performed by : [address], [address] NRBC abs 0.00 0.00 - 0.01 K/cumm CERNER Comment:Testing performed by : [address], [address] Blood 02/13/2025 2:47 PM CDT 02/13/2025 7:34 PM CDT us Braden Mckeon MD LAB BLOOD ORDERABLE S Final Result [address] Department [place] [address] * Cyclic citrul peptide antibody, IgG (02/13/2025 2:47 PM CDT) Pathologist [facility] CCP Ab <0.5 <=2.9 units/mL Comment: Interpretive data Negative: <3 units/mL Positive: > or equal to 3 units/mL Current interpretive data was last revised on 2016. Testing performed by: [facility], [address] [place]., [address] Blood 02/13/2025 2:47 PM CDT 02/14/2025 10:22 AM CDT Brdaen Mckeon MD LAB BLOOD ORDERABLE S Final Result LUNA [address] Department [place] [address] * (ABNORMAL) C-peptide (02/13/2025 2:47 PM CDT) C-peptide 13.90(H) 1.10 - 4.40 ng/mL Comment:Testing performed by : [facility], [address] [facility], [place]., [address] Blood 02/13/2025 2:47 PM CDT 02/14/2025 10:21 AM CDT Braden Mckeon MD LAB BLOOD ORDERABLE S Final Result Performing Organization Address [facility]/ZIP Co de Phone Number LUNA [address] [address] Department [place] [address] * (ABNORMAL) Erythrocyte sedimentation rate (02/13/2025 2:47 PM CDT) Erythrocyte sedimentation rate 27(H) 1 - 20 mm/hr Comment:Testing performed by : [facility], [address] [place] [address]., [address] Blood 02/13/2025 2:47 PM CDT 02/13/2025 7:34 PM CDT Braden Mckeon MD LAB BLOOD ORDERABLE S Final Result LUNA [address] Department [place] [address] * CRP (acute phase) (02/13/2025 2:47 PM CDT) CRP 4.3 <=10.0 mg/L Comment:Testing performed by : [address] [address] Blood 02/13/2025 2:47 PM CDT 02/13/2025 7:34 PM CDT Braden Mckeon MD LAB BLOOD ORDERABLE S Final Result Performing Organization Address City/[facility]/ZIP Co de Phone Number [facility] [place] [address] * Uric acid (02/13/2025 2:47 PM CDT) Pathologist [facility] Uric acid 5.7 3.0 - 8.0 mg/dL Comment:Testing performed by : [facility], [address] [place] [address], [address] Blood 02/13/2025 2:47 PM CDT 02/13/2025 7:34 PM CDT Braden Mckeon MD LAB BLOOD ORDERABLE S Final Result Performing Organization Address [facility] Co de Phone Number [facility] [address] [facility] Department [place] [address] * TSH (02/13/2025 2:47 PM CDT) Pathologist [facility] Thyroid Stimulating Hormone 2.50 0.30 - 4.20 mcIUnit/mL Comment:Testing performed by : [address] [address] Blood 02/13/2025 2:47 PM CDT 02/13/2025 7:34 PM CDT Braden Mckeon MD LAB BLOOD ORDERABLE S Final Result LUNA [address] [facility] Department [place] [address] * (ABNORMAL) Hemoglobin A1c (02/13/2025 2:47 PM CDT) Hgb A1C 12.6(H) 4.0 - 5.6 % Comment:Testing performed by : [address] [address] Estimated Average Glucose 315 mg/dL LUNA Comment: The ADA recommends reporting an estimated Average Glucose (eAG) with all Hemoglobin A1c results using the equation derived from a study of 507 normal and diabetic adults. Minority populations were underrepresented and children were not included. (Diabetes Care 31:6180-1946, 2008). The eAG is not equivalent to a fasting glucose. Testing performed by: [address] [address] Blood 02/13/2025 2:47 PM CDT 02/13/2025 7:34 PM CDT us Braden Mckeon MD LAB BLOOD ORDERABLE S Final Result LUNA [address] [facility] [place] [address] * (ABNORMAL) Lipid panel (02/13/2025 2:47 PM CDT) Cholesterol 254(H) 30 - 199 mg/dL Comment: Interpretive Data Ages < or = 19 years Acceptable: <170 mg/dL Borderline high: 170-199 mg/dL High: >or= 200 mg/dL Ages > or = 20 years Desirable: <200 mg/dL Borderline high: 200-239 mg/dL High: >or= 240 mg/dL Literature References: 1. Expert Panel on Integrated Guidelines for Cardiovascular Health and Risk Reduction in Children and Adolescents. Pediatrics 2011;128:S213 2. NCEP Expert Panel. Circulation 2004;110:227 Current Interpretive Data was last revised on 2018. Testing performed by: [address] [address] Triglycerides 301(H) <=149 mg/dL LUNA Comment: Interpretive Data Ages < or = 9 years Acceptable: <75 mg/dL Borderline high: 75-99 mg/dL High: >or= 100 mg/dL Ages 10 to 20 years Acceptable: <90 mg/dL Borderline high: 90-129 mg/dL High: >or= 130 mg/dL Ages > or = 20 years Desirable: <150 mg/dL Borderline high: 150-199 mg/dL High: 200-499 mg/dL Very high: >or= 499 mg/dL Literature References: 1. Expert Panel on Integrated Guidelines for Cardiovascular Health and Risk Reduction in Children and Adolescents. Pediatrics 2011;128:S213 2. NCEP Expert Panel. Circulation 2004;110:227 Current Interpretive Data was last revised on 2018. Testing performed by: [address] [address] HDL 35(L) >=40 mg/dL LUNA Comment: Interpretive Data Ages < or = 19 years Acceptable: >45 mg/dL Borderline low: 40-45 mg/dL Low: <40 mg/dL Ages > or = 20 years Desirable: >or= 60 mg/dL Low: <40 mg/dL Literature References: 1. Expert Panel on Integrated Guidelines for Cardiovascular Health and Risk Reduction in Children and Adolescents. Pediatrics 2011;128:S213 2. NCEP Expert Panel. Circulation 2004;110:227 Current Interpretive Data was last revised on 2018. Testing performed by: [facility], [address] [place] [address]., [address] LDL, calculated 162(H) <=129 mg/dL LUNA Comment: Interpretive Data Ages < or = 19 years Acceptable: <110 mg/dL Borderline high: 110-129 mg/dL High: >or= 130 mg/dL Ages > or = 20 years Optimal: <100 mg/dL Near optimal: 100-129 mg/dL Borderline high: 130-159 mg/dL High: >160 mg/dL Calculated using the Ibarra LDL-C estimating equation. This equation was implemented on 2024. Prior to this date LDL-C was estimated using the Friedewald equation. Literature References: 1. Expert Panel on Integrated Guidelines for Cardiovascular Health and Risk Reduction in Children and Adolescents. Pediatrics 2011;128:S213 2. NCEP Expert Panel. Circulation 2004;110:227 3. Fred Recinos et al. SILVIA Cardiol. 2020 December 19;5(5):540-548. doi: 10.1001/jamacardio.2020.0013 Current Interpretive Data was last revised on 2024. Testing performed by: [address] [address] Non-HDL Cholesterol 219 mg/dL LUNA Comment: Interpretive Data Ages < or = 19 years Acceptable: <120 mg/dL Borderline high: 120-144 mg/dL High: >145 mg/dL Ages > or = 20 years When triglycerides are >200 mg/dL, Non-HDL cholesterol is a secondary target of therapy with treatment goals that are 30 mg/dL greater than the LDL cholesterol target. Literature References: 1. Expert Panel on Integrated Guidelines for Cardiovascular Health and Risk Reduction in Children and Adolescents. Pediatrics 2011;128:S213 2. NCEP Expert Panel. Circulation 2004;110:227 Current Interpretive Data was last revised on 2018. Testing performed by: [address] [address] Chol/HDL ratio 7 LUNA Comment:Testing performed by : [address] [address] Blood 02/13/2025 2:47 PM CDT 02/13/2025 7:34 PM CDT Braden Mckeon MD LAB BLOOD ORDERABLE S Final Result [address] Department [place] [address] * (ABNORMAL) Comprehensive metabolic panel (02/13/2025 2:47 PM CDT) Sodium 137 135 - 145 mmol/L Comment:Testing performed by : [address] [address] Potassium, pl 5.0(H) 3.3 - 4.9 mmol/L LUNA Comment:Testing performed by : [address] [address] Chloride 99 97 - 110 mmol/L CERNER CH Comment:Testing performed by : [facility], [address] [place] [address]., [address] CO2 23 22 - 32 mmol/L CERNER CH Comment:Testing performed by : [address] [address] Anion gap 15 2 - 15 mmol/L CERNER CH Comment:Testing performed by : [facility], [address] [place] [address]., [address] BUN 53(H) 6 - 25 mg/dL CERNER CH Comment:Testing performed by : [facility], [address] [place] [address], [address] Creatinine 1.56(H) 0.80 - 1.30 mg/dL CERNER CH Comment:Testing performed by : [address], [address] Glucose 328(H) 70 - 199 mg/dL CERNER CH Comment: Interpretive Data Fasting glucose >/= 126 mg/dl is diagnostic for diabetes. Fasting is defined as no caloric intake for at least 8 hours. Fasting glucose between 100 mg/dl to 125 mg/dl is diagnostic of prediabetes. In a patient with classic symptoms of hyperglycemia or hyperglycemic crisis, a random glucose >/= 200 mg/dl is diagnostic for diabetes. In the absence of unequivocal hyperglycemia, results should be confirmed by repeat testing. The classification and Diagnosis of Diabetes Diabetes Care 202; 46: S19-S40. Current interpretive data was last revised 2022. Testing performed by: [address] [address] Calcium 9.6 8.5 - 10.3 mg/dL CERNER CH Comment:Testing performed by : [address] [address] Bilirubin, total 0.3 0.1 - 1.2 mg/dL CERNER CH Comment:Testing performed by : [address] [address] Protein, pl 7.1 6.5 - 8.5 g/dL CERNER CH Comment:Testing performed by : [address], [address] Albumin 4.1 3.5 - 5.0 g/dL CERNER CH Comment:Testing performed by : [address] [address] Alk phos 133(H) 40 - 130 Units/L CERPAM Comment:Testing performed by : [facility], [address] [place] [address], [address] ALT 33 7 - 55 Units/L CERPAM Comment:Testing performed by : [facility], [address] [place] [address], [address] AST 31 10 - 50 Units/L CERNER Comment:Testing performed by : [facility], [address] [place] [address], [address] Blood 02/13/2025 2:47 PM CDT 02/13/2025 7:34 PM CDT Braden Mckeon MD LAB BLOOD ORDERABLE S Final Result LUNA [address] [facility] Department [place] [address] from Last 3 Months Insurance MEDICARE [facility] MEDICARE SUPPLEMENT Care Teams Mexican Food Maker Relationship Specialty Start Date End Date Braden Mckeon MD [address] [facility] [address] [place] [address] PCP - General Family Practice 02/13/25
--- OUTSIDE RECORDS SUMMARY | 2025-02-26 13:02 | XMS_ITS | Encounter Summary ---
Author Organization [facility] Address [facility] [place] [address] Care Team Providers Care Seed Expert Name Role Phone Unavailable Primary Care Provider Unavailabl e Encounter Details Date Type Department Care Team (Late st Contact Info) Description 01/28/2025 Abstract [facility] [address] [address] Lucian Rogers MA Social History Tobacco Use Types Packs/Day Years Used Date Smoking Tobacco: Never Assessed Sex and Gender Information Value Date Recorded Sex Assigned at Not on file Legal Sex Male 4:15 PM CDT Gender Identity Not on file Sexual Orientation Not on file documented as of this encounter Plan of Treatment Upcoming Encounters Date Type Department Care Team (Late st Contact Info) Description 04/24/2025 11:30 AM CDT Office Visit [facility] [address] [phone] Ra Joe MD [facility]. [address] [address] documented as of this encounter Procedures Procedure Name Priority Date/Time Associated Diagnosis Comments PRO-BRAIN NATRIURETIC PEPTIDE Routine 11/26/2024 COMPREHENSIVE METABOLIC PANEL Routine 11/26/2024 CBC, MANUAL DIFF Routine 11/26/2024 documented in this encounter Results * (ABNORMAL) COMPREHENSIVE METABOLIC PANEL (11/26/2024) SODIUM S/P/B 134 GLUCOSE 287 mg/dL AST 30 BUN 66 CREATININE S/P/B 2.03(A) 0.7 - 1.3 CALCIUM S/P/B 9.4 POTASSIUM S/P/B 5.1 CHLORIDE S/P/B 98 ALT 28 GFR ESTIMATE 36 us Default History Genericprovider LABORATORY Final Result * PRO-BRAIN NATRIURETIC PEPTIDE (11/26/2024) PRO-B TYPE NATRIURETIC PEPTIDE 130 us Default History Genericprovider LABORATORY Final Result * CBC, MANUAL DIFF (11/26/2024) WBC 8.4 HGB 13.4 HCT 39.4 PLT 213 us Default History Genericprovider LABORATORY Final Result documented in this encounter Visit Diagnoses Not on filedocumented in this encounter
--- OUTSIDE RECORDS SUMMARY | 2025-02-26 13:02 | XMS_ITS | Clinical Summary ---
Author Organization [facility] Address [address] [place] [address] Care Team Providers Care Industrial Mechanic Name Role Phone Braden Mckeon MD Primary Care Provi olinda Allergies No known active allergies Medications bumetanide [...] without long-term current use of insulin (HCC) Take 1 tablet (500 mg total) by [...] antibody, IgG; Future CRP (acute phase); Future Encounters Date Type Department Care Team Description 02/16/2025 Results Follow-Up [facility] Primary Care at [address] [phone] Braden Mckeon MD PSA screen, Lipid panel, CBC with auto differential, Additional followed-up results: 11 02/13/2025 2:40 PM CDT Lab [facility] - Outpatient Center at [address] [address] Screening PSA (prostate specific antigen); Type 2 diabetes mellitus without complication, without long-term current use of insulin (HCC); Inflammatory arthritis; Chronic gout without tophus, unspecified cause, unspecified site 02/13/2025 2:00 PM CDT Office Visit [facility] Primary Care at [address] [place] [phone] Braden Mckeon MD Type 2 diabetes mellitus [...] (prostate specific antigen) from Last 3 Months Immunizations Immunization Administration Dates Next Due Influenza, [...] on file Legal Sex Male 4:50 PM GANDY DANCER Gender Identity Not on file Sexual Orientation Not on file Obstetrics History Last Filed Vital Signs Vital Sign Reading [...] 02/13/2025 1:45 PM CDT Plan of Treatment Health Maintenance Due Date Last Done Comments Albumin Creatinine Ratio, Urine 1955 Colon Cancer Screening-Colonoscopy 1955 Hepatitis C Screening 1955 Dilated Eye Exam 1955 Foot Exam 1955 DTaP/Tdap/Td Vaccine (1 - Tdap) 11/10/1967 Hepatitis B Screening 1974 Pneumococcal vaccine 65+ (1 of 2 - PCV) 11/10/1975 Zoster Vaccine (1 of 2) 2006 Well Visit 65+ 2021 Influenza Vaccine (#1) 2025 Hemoglobin A1C 08/15/2025 02/13/2025 Depression Screening 02/13/2026 02/13/2025, 02/14/20 25 Fall Risk Assessment 02/13/2026 02/13/2025 Lipid Panel 02/13/2026 02/13/2025 eGFR 02/13/2026 02/13/2025 Prostate Cancer Screening-PSA 02/13/2027 02/13/2025 Procedures Procedure Name Priority Date/Time Associated Diagnosis [...] last revised on 2020. Testing performed by: [facility], [address] [facility], [place]., [address] Blood 02/13/2025 2:47 PM CDT 02/14/2025 10:20 AM CDT Braden Mckeon MD LAB BLOOD ORDERABLE S Final Result Performing Organization Address City/[facility] Co de Phone Number LUNA [place] [address] [address] Department [place] [address] * (ABNORMAL) eGFR (02/13/2025 2:47 [...] of Race in Diagnosing Kidney Disease, JASN 2020). The CKD-EPI equation should not be used for patients with unstable renal function and has not been validated in children and those over 70. Current interpretive data was last reviewed 2021. Testing performed by: [address] [address] Blood 02/13/2025 2:47 PM CDT 02/13/2025 8:04 PM CDT us Braden Mckeon MD LAB BLOOD ORDERABLE S Final Result Performing Organization Address City/[facility]/ZIP Co de Phone Number LUNA [place] [address] * Differential, auto (02/13/2025 2:47 PM CDT) Neutrophil abs 5.99 1.50 - 6.50 K/cumm Comment:Testing performed by : [address] [address] Imm gran abs 0.09 0.00 - 0.10 K/cumm CERNER CH Comment:Testing performed by : [facility], [address] [place] [address]., [address] Lymphocyte abs 2.11 0.80 - 3.30 K/cumm CERNER CH Comment:Testing performed by : [facility], [address] [place] [address]., [address] Monocyte abs 0.55 0.20 - 0.80 K/cumm CERNER CH Comment:Testing performed by : [facility], [address] [place] [address]., [address] Eosinophil abs 0.25 0.00 - 0.50 K/cumm CERNER CH Comment:Testing performed by : [address] [address] Basophil abs 0.06 0.00 - 0.10 K/cumm CERNER CH Comment:Testing performed by : [address], [address] Neutrophil pct 66.1 % CERNER CH Comment: Interpretive Data Percent cell count reference ranges are not reported, since discordance with absolute values may lead to misinterpretation of CBC data. Current Interpretive Data was last revised on 2017. Testing performed by: [address] [address] Imm gran pct 1.0 % CERNER CH Comment: Interpretive Data Percent cell count reference ranges are not reported, since discordance with absolute values may lead to misinterpretation of CBC data. Current Interpretive Data was last revised on 2017. Testing performed by: [address] [address] Lymphocyte pct 23.3 % CERNER CH Comment: Interpretive Data Percent cell count reference ranges are not reported, since discordance with absolute values may lead to misinterpretation of CBC data. Current Interpretive Data was last revised on 2017. Testing performed by: [address] [address] Monocyte pct 6.1 % CERNER CH Comment: Interpretive Data Percent cell count reference ranges are not reported, since discordance with absolute values may lead to misinterpretation of CBC data. Current Interpretive Data was last revised on 2017. Testing performed by: [facility], [address] [place] [address]., [address] Eosinophil pct 2.8 % [facility] Comment: Interpretive Data Percent cell count reference ranges are not reported, since discordance with absolute values may lead to misinterpretation of CBC data. Current Interpretive Data was last revised on 2017. Testing performed by: [facility], [address] [place] [address]., [address] Basophil pct 0.7 % LUNA Comment: Interpretive Data Percent cell count reference ranges are not reported, since discordance with absolute values may lead to misinterpretation of CBC data. Current Interpretive Data was last revised on 2017. Testing performed by: [address] [address] Blood 02/13/2025 2:47 PM CDT 02/13/2025 7:34 PM CDT Braden Mckeon MD LAB BLOOD ORDERABLE S Final Result LUNA [address] Department [place] [address] * PSA screen (02/13/2025 2:47 PM CDT) PSA-Total <0.01 <=5.40 ng/mL Comment: Interpretive Data [...] data last revised 21. Testing performed by: [address] [address] Blood 02/13/2025 2:47 PM CDT 02/13/2025 7:34 PM CDT Braden Mckeon MD LAB BLOOD ORDERABLE S Final Result [address] Department [place] [address] * (ABNORMAL) CBC with auto differential (02/13/2025 2:47 PM CDT) WBC 9.05 3.80 - 9.90 K/cumm Comment:Testing performed by : [address], [address] Hgb 12.8(L) 13.0 - 17.5 g/dL CERNER CH Comment:Testing performed by : [address], [address] Hct 39.9 38.9 - 50.3 % CERNER CH Comment:Testing performed by : [address], [address] Plt 242 150 - 400 K/cumm CERNER CH Comment:Testing performed by : [address], [address] MPV 10.2 9.1 - 12.3 fL CERNER CH Comment:Testing performed by : [address], [address] RBC 4.15(L) 4.30 - 5.80 M/cumm CERNER CH Comment:Testing performed by : [address], [address] MCV 96.1 81.3 - 96.4 fL CERNER CH Comment:Testing performed by : [address], [address] MCH 30.8 27.1 - 33.3 pg CERNER CH Comment:Testing performed by : [address], [address] MCHC 32.1(L) 32.3 - 35.7 g/dL CERNER CH Comment:Testing performed by : [address], [address] RDW CV 13.8 11.1 - 14.9 % CERNER CH Comment:Testing performed by : [address], [address] RDW SD 48.8(H) 35.7 - 48.1 fL CERNER CH Comment:Testing performed by : [facility], [address] [place] [address]., [address] NRBC abs 0.00 0.00 - 0.01 K/cumm LUNA Comment:Testing performed by : [facility], [address] [place] [address]., [address] Blood 02/13/2025 2:47 PM CDT 02/13/2025 7:34 PM CDT Braden Mckeon MD LAB BLOOD ORDERABLE S Final Result Performing Organization Address [facility] Co de Phone Number LUAN [address] [facility] [place] [address] * Cyclic citrul peptide antibody, IgG (02/13/2025 2:47 PM CDT) CCP Ab <0.5 <=2.9 units/mL Comment: Interpretive data Negative: <3 units/mL Positive: > or equal to 3 units/mL Current interpretive data was last revised on 2016. Testing performed by: [facility], [address] [place] [address]., [address] Blood 02/13/2025 2:47 PM CDT 02/14/2025 10:22 AM CDT Braden Mckeon MD LAB BLOOD ORDERABLE S Final Result Performing Organization Address [facility] Co de Phone Number LUNA [address] [facility] [place] [address] * (ABNORMAL) C-peptide (02/13/2025 2:47 PM CDT) C-peptide 13.90(H) 1.10 - 4.40 ng/mL Comment:Testing performed by : [facility], [address] [place]., [address] Blood 02/13/2025 2:47 PM CDT 02/14/2025 10:21 AM CDT Braden Mckeon MD LAB BLOOD ORDERABLE S Final Result Performing Organization Address [facility] Co de Phone Number LUNA [place] [address] [address] [facility] [place] [address] * (ABNORMAL) Erythrocyte sedimentation rate (02/13/2025 2:47 PM CDT) Erythrocyte sedimentation rate 27(H) 1 - 20 mm/hr Comment:Testing performed by : [facility], [address] [place] [address]., [address] Blood 02/13/2025 2:47 PM CDT 02/13/2025 7:34 PM CDT Braden Mckeon MD LAB BLOOD ORDERABLE S Final Result Performing Organization Address [facility] de Phone Number LUNA [address] Department [place] [address] * CRP (acute phase) (02/13/2025 2:47 PM CDT) CRP 4.3 <=10.0 mg/L Comment:Testing performed by : [facility], [address] [place] [address]., [address] Blood 02/13/2025 2:47 PM CDT 02/13/2025 7:34 PM CDT us Braden Mckeon MD LAB BLOOD ORDERABLE S Final Result Performing Organization Address [facility]/ZIP Co de Phone Number LUNA [place] [address] [address] [facility] [place] [address] * Uric acid (02/13/2025 2:47 PM CDT) Uric acid 5.7 3.0 - 8.0 mg/dL Comment:Testing performed by : [facility], [address] [place] [address]., [address] Blood 02/13/2025 2:47 PM CDT 02/13/2025 7:34 PM CDT Braden Mckeon MD LAB BLOOD ORDERABLE S Final Result Performing Organization Address [facility] de Phone Number LUNA [address] [facility] [place] [address] * TSH (02/13/2025 2:47 PM CDT) Thyroid Stimulating Hormone 2.50 0.30 - 4.20 mcIUnit/mL Comment:Testing performed by : [address] [address] Blood 02/13/2025 2:47 PM CDT 02/13/2025 7:34 PM CDT Braden Mckeon MD LAB BLOOD ORDERABLE S Final Result Performing Organization Address [facility] de Phone Number LUNA [address] Department [place] [address] * (ABNORMAL) Hemoglobin A1c (02/13/2025 2:47 PM CDT) Pathologist [facility] Hgb A1C 12.6(H) 4.0 - 5.6 % Comment:Testing performed by : [address] [address] Estimated Average Glucose 315 mg/dL LUNA Comment: The ADA recommends reporting an estimated Average Glucose (eAG) with all Hemoglobin A1c results using the equation derived from a study of 507 normal and diabetic adults. Minority populations were underrepresented and children were not included. (Diabetes Care 31:5701-9760, 2008). The eAG is not equivalent to a fasting glucose. Testing performed by: [address] [address] Blood 02/13/2025 2:47 PM CDT 02/13/2025 7:34 PM CDT Braden Mckeon MD LAB BLOOD ORDERABLE S Final Result Performing Organization Address [facility]/State/ZIP Co de Phone Number LUNA [phone] [place] [address] Department [place] [address] * (ABNORMAL) Lipid panel (02/13/2025 2:47 PM [...] last revised on 2018. Testing performed by: [facility], [address] [place] [address]., [address] Triglycerides 301(H) <=149 mg/dL LUNA [place] Comment: Interpretive Data Ages < or = [...] last revised on 2018. Testing performed by: [facility], [address] [place] [address]., [address] HDL 35(L) >=40 mg/dL LUNA [place] Comment: Interpretive Data Ages < or = [...] last revised on 2018. Testing performed by: [address] [address] LDL, calculated 162(H) <=129 mg/dL LUNA [place] Comment: Interpretive Data Ages < or = 19 years Acceptable: <110 mg/dL Borderline high: 110-129 mg/dL High: >or= 130 mg/dL Ages > or = 20 years Optimal: <100 mg/dL Near optimal: 100-129 mg/dL Borderline high: 130-159 mg/dL High: >160 mg/dL Calculated using the Fred LDL-C estimating equation. This equation was implemented on 2024. Prior to this date LDL-C was estimated using the Friedewald equation. Literature References: 1. Expert Panel on Integrated Guidelines for Cardiovascular Health and Risk Reduction in Children and Adolescents. Pediatrics 2011;128:S213 2. NCEP Expert Panel. Circulation 2004;110:227 3. Fred Recinos et al. SILVIA Cardiol. 2019December 19;5(5):540-548. doi: 10.1001/jamacardio.2020.0013 Current Interpretive Data was last revised on 2024. Testing performed by: [address] [address] Non-HDL Cholesterol 219 mg/dL LUNA Comment: Interpretive [...] last revised on 2018. Testing performed by: [address] [address] Chol/HDL ratio 7 LUNA Comment:Testing performed by : [address] [address] Blood 02/13/2025 2:47 PM CDT 02/13/2025 7:34 PM CDT us Braden Mckeon MD LAB BLOOD ORDERABLE S Final Result [address] Department [place] [address] * (ABNORMAL) Comprehensive metabolic panel (02/13/2025 2:47 PM CDT) Sodium 137 135 - 145 mmol/L Comment:Testing performed by : [address] [address] Potassium, pl 5.0(H) 3.3 - 4.9 mmol/L [facility] Comment:Testing performed by : [address], [address] Chloride 99 97 - 110 mmol/L [facility] Comment:Testing performed by : [address], [address] CO2 23 22 - 32 mmol/L [facility] Comment:Testing performed by : [address], [address] Anion gap 15 2 - 15 mmol/L [facility] Comment:Testing performed by : [address], [address] BUN 53(H) 6 - 25 mg/dL [facility] Comment:Testing performed by : [address], [address] Creatinine 1.56(H) 0.80 - 1.30 mg/dL [facility] Comment:Testing performed by : [address], [address] Glucose 328(H) 70 - 199 mg/dL [facility] Comment: Interpretive Data Fasting glucose >/= 126 [...] classification and Diagnosis of Diabetes Diabetes Care 2021; 46: S19-S40. Current interpretive data was last revised 2022. Testing performed by: [facility], [address] [place] [address]., [address] Calcium 9.6 8.5 - 10.3 mg/dL CERNER CH Comment:Testing performed by : [address] [address] Bilirubin, total 0.3 0.1 - 1.2 mg/dL CERNER CH Comment:Testing performed by : [facility], [address] [place] [address]., [address] Protein, pl 7.1 6.5 - 8.5 g/dL CERNER CH Comment:Testing performed by : [facility], [address] [place] [address]., [address] Albumin 4.1 3.5 - 5.0 g/dL CERNER CH Comment:Testing performed by : [address] [address] Alk phos 133(H) 40 - 130 Units/L CERNER CH Comment:Testing performed by : [facility], [address] [place] [address]., [address] ALT 33 7 - 55 Units/L CERNER CH Comment:Testing performed by : [address] [address] AST 31 10 - 50 Units/L CERNER CH Comment:Testing performed by : [address] [address] Blood 02/13/2025 2:47 PM CDT 02/13/2025 7:34 PM CDT us Braden Mckeon MD LAB BLOOD ORDERABLE S Final Result [facility] [address] [address] Department [place] [address] from Last 3 Months Insurance MEDICARE [facility] MEDICARE SUPPLEMENT Care Teams Industrial Mechanic Relationship Specialty Start Date End Date Bradne Mckeon MD [address] [facility] [address] [place] [address] PCP - General Family Practice 02/13/25
--- OUTSIDE RECORDS SUMMARY | 2025-02-26 13:02 | XMS_ITS | Clinical Summary ---
Author Organization [facility] Address Critical access hospital[address] [place] [address] Care Team Providers Care Tubing Mill Setter Name Role Phone Unavailable Primary Care Provider Unavailabl e Encounters Date Type Department Care Team Description 01/28/2025 Abstract [place] [facility] [facility], [facility] [address] [place] [address] Lucian Rogers MA 01/15/2025 Telephone [place] [facility] [facility], [facility] [address] [place], [place] [id number] Ra Joe MD Information ([facility], Pamela Graf, [facility], [place]) 01/02/2025 Telephone [place] [facility] [facility], [address] [address] Ra Joe MD Appointment Request 12/03/2024 Scan [place] [facility] [facility], [facility] [address] [place] [address] Scanned, Doc Pccl from Last 3 Months Social History Tobacco Use Types Packs/Day Years Used Date Smoking Tobacco: Never Assessed Sex and Gender Information Value Date Recorded Sex Assigned at Not on file Legal Sex Male 4:15 PM CDT Gender Identity Not on file Sexual Orientation Not on file Plan of Treatment Upcoming Encounters Date Type Department Care Team (Late st Contact Info) Description 04/24/2025 11:30 AM CDT Office Visit [place] [facility] [address] [place] [phone] Ra Joe MD [facility]. [facility] [address] [place], [place] [id number] Health Maintenance Due Date Last Done Comments Colorectal Cancer Screening Colonoscopy (10 Years) 1956 Hepatitis C 1974 DTaP, Tdap and Td Vaccines ( 1 - Tdap) 11/10/1975 Pneumococcal Vaccine: 50+ Ye ars (1 of 1 - PCV) 2006 Zoster Vaccines (1 of 2) 2006 Annual Medicare Wellness Visit 2021 COVID-19 Vaccine (1 - 2023-2 5 season) 2024 RSV Immunization or 60+ Years (1 - 1-dose 75+ series) 11/10/2031 Meningococcal B Vaccine Aged Out No l onger eligible based on patient's age to complete this topic Meningococcal Vaccine Aged Out No amy jefreson eligible based on patient's age to complete this topic RSV Immunizations Under 20 Months Aged Out No longer eligible based on patient's age to complete this topic Insurance MEDICARE [facility]
--- OUTSIDE RECORDS SUMMARY | 2025-02-26 13:02 | XMS_ITS | Patient Health Record ---
Author Organization [employer] [employer] [facility] Address [address] [facility] [place] [address] Support Name Relationship Address Phone Mariaelena Poon Emergency Contact [address] [place] [address] Norris Poon Guarantor Unknown Reason For Referral No Information Medications Medication SIG (Take, Route, Frequency, Duration) Notes Start Date End Date Status Spironolactone 25 MG 1 tablet Orally for 30 day(s) bid Active Glimepiride 4 MG 1 tablet with breakf ast or the first main meal of the day Orally Once a day for 30 day(s) Active Bumex 2 MG as directed Orally Active Midodrine HCl 5 MG 1 tablet Orally Thre e times a day for 30 day(s) tid Active Fludrocortisone Acetate 0.1 MG 1 tablet Orally Three times a Week for 30 day(s) Active Social History Tobacco Use: Social History Observation Description Date Details (start date - stop date) Former Smoker NA - NA Current tobacco user? Question Answer Notes Are you a current smoker, former smoker, or have never smoked? former smoker Problems Problem Type SNOMED Code ICD Code Onset Dates Problem Status W/U Status Risk Notes Problem 89838753 Cramps, muscle, general (R25.2) Active confirmed Problem 079287306 Iron deficiency anemia due to chronic blood loss (D50.0) Active confirmed Problem 73947157 Hypogonadism in male (E29.1) Active confirmed Problem 61404631 Fatigue, unspecified type (R53.83) Active confirmed Problem 430143750 Hx of malignant neoplasm of prostate (Z85.46) Active confirmed Problem 109393939 Abnormal endocrine laboratory test finding (R68.89) Active confirmed Plan Of Treatment Pending Test Test Name Order Date CMP Comprehensive Metabolic Panel ([facility]) 03152 01/23/2019 T4, Free ([place], IHC) 20318 01/23/2019 LH, Luteinizing Hormone ([place]), 17109 12/2018 Magnesium (GM), 00245 01/23/2019 TSH ([place]), 98773 01/23/2019 Cortisol, Random (Serum) 01/23/2019 DHEA Sulfate, Serum by [facility] 01/23/2019 ACTH (Adrenocorticotropic Horm), Plasma 01/23/2019 Insulin Like Growth Factor 1 (IGF1) 12/2018 Prolactin 01/23/2019 Reticulocyte Count, Automated 01/23/2019 Testosterone, Total ([place]), 38694 019 Iron and TIBC ([facility] only) 01/23/2019 21 Hydroxylase Antibody 01/23/2019 CBC with Auto Diff ([place] IHC) 01/23/2019 Insurance Providers Payer Name Payer Address Payer Phone Subscriber Number Group Number Insured Name Patient Relationship to Insured Coverage Start Date Coverage End Date [facility] [address] JAYSON FERNANDEZ [phone] [phone] [id number] Norris Paz Self - patient is the insured Medical (General) History Medical History History ICD Code Prostate cancer - about 2013, 4+3, nodes negtive, Surgery & Radiation, Hemorrhoids Type 2 diabetes Congestive heart failure Sleep apnea - on CPAP Surgical History Surgery Date(Month/Year) Prostatectomy 2013 Right Rotator Cuff Surgeries 2016 & 2017 Hospitalization History Reason Date(Month/Year) with above
[2025-02-26 13:21] LABS: Hematocrit 39.8 % (42.0-52.0); Hemoglobin 12.6 g/dL (14.0-18.0); Immature Granulocyte Percent A 0.8 % (0-0.5); Lymphocytes Absolute Auto 1.58 K/mm3 (0.9-3.2); Mean Corpuscular HGB Conc 31.7 g/dl (32-36); Mean Corpuscular Hemoglobin 30.9 pg (26-34); Mean Corpuscular Volume 97.5 fl (80-100); Nucleated Red Blood Cells Absolute Auto 0.000 K/mm3 (0.0-0.012); Nucleated Red Blood Cells Perc 0.0 % (0.0-0.2); Platelet Count Result 197 k/mm3 (150-375); Red Blood Count 4.08 M/mm3 (4.6-6.20); White Blood Count 7.1 K/mm3 (4.5-10.0)
[2025-02-26 13:36] LABS: Alanine Aminotransferase 26 U/L (6-50); Albumin Level 4.2 g/dL (3.5-5.1); Alkaline Phosphatase 144 U/L (38-126); Anion Gap 7 mmol/L (4-12); Aspartate Amino Transferase 26 U/L (17-59); Bilirubin,Total 0.3 mg/dL (0.2-1.3); Blood Urea Nitrogen 46 mg/dL (9-20); Calcium 9.7 mg/dL (8.4-10.2); Carbon Dioxide 30 mmol/L (22-30); Chloride 102 mmol/L (98-107); Estimated CRCL calculation 48 ml/min; Estimated Glomerular Filt Rate 37; Glucose 300 mg/dL (65-110); INR 0.9; Lipase 115 U/L (23-300); Partial Thromboplastin Time 23.9 Seconds (22.3-36.8); Potassium 5.2 mmol/L (3.4-5.0); Prothrombin Time 12.3 Seconds (11.1-14.7); Sodium 139 mmol/L (137-145); Total Protein 7.1 g/dL (6.3-8.2)
[2025-02-26 13:48] LABS: Troponin I < 0.012 ng/mL (0.000-0.034)
[2025-02-26 13:54] VITALS: BP 108/72; PULSE 71; RESP 15; O2SAT 97
--- NOTE | 2025-02-26 14:01 | ED_ITS ---
HPI - General Adult General Chief complaint: Chest Pain Stated complaint: chest pain Time Seen by Provider: 02/26/25 13:46 History of Present Illness HPI narrative: 69-year-old male presenting to the emergency department for evaluation for epigastric burning. Patient does have prior history of CHF and does take patella might and spironolactone. Patient states that he is having a burning chest pain that does radiate into his back. Patient also reports feeling excessively tired. Patient denies any prior history esophageal reflux or GERD. Patient denies any recent coughs colds or fevers. Patient denies any shortness of breath. Related Data Home Medications ?Medication ?Instructions ?Recorded ?Confirmed ?Last Taken ?Type allopurinol 300 mg tablet 300 mg PO DAILY 04/14/21 08/06/24 Unknown History bumetanide 2 mg tablet 2 mg PO DAILY 04/14/21 08/06/24 Unknown History gabapentin 300 mg capsule 2 mg PO TID 04/14/21 08/06/24 Unknown History glimepiride 4 mg PO BID 04/14/21 08/06/24 Unknown History spironolactone 25 mg tablet 25 mg PO BID 04/14/21 08/06/24 Unknown History Allergies Allergy/AdvReac Type Severity Reaction Status Date / Time No Known Allergies Allergy Unknown Verified 02/26/25 13:03 Review of Systems 2 Review of Systems: All systems reviewed & are unremarkable except as noted in HPI and below PMFSH Past Medical History Medical History (Updated 02/27/25 @ 00:00 by Dc Rodriguez) Rotator cuff tear, left Diabetes Gout Surgical History Surgical History History of shoulder surgery right Family History Family History Mother Cancer Social History Social History Social History: caffeine use Smoking status: Never smoker Alcohol intake: never Substance use: never Gender identity (if verbalized by the patient): Male Exam 2 Narrative: APPEARANCE: Well appearing, no pain, no distress, well-nourished. HEAD: normocephalic, atraumatic. EYES: PERRLA/EOMI, conjunctivae clear. NOSE: Normal no drainage EARS:TMS clear with good light reflex. THROAT: Pharynx clear, no exudate. NECK: Supple. No adenopathy, no masses. RESPIRATORY: Airway patent, respirations nonlabored. Clear to auscultation bilaterally, no rales, rhonchi, wheezing. CARDIOVASCULAR: Regular rate and rhythm without murmurs rubs or gallops. ABDOMINAL: Soft, nontender, nondistended, normal bowel sounds MUSCULOSKELETAL: Reproducible chest wall tenderness to palpation NEURO: Alert. Cranial nerves II through XII intact. Good gait. Good coordination SKIN: Warm, dry. Normal Color Course Vital Signs Vital signs: Vital Signs Temperature 97.9 F 02/26/25 13:00 Pulse Rate 83 02/26/25 13:00 Respiratory Rate 16 02/26/25 13:00 Blood Pressure 105/65 02/26/25 13:00 Pulse Oximetry 97 02/26/25 13:00 Oxygen Delivery Room Air 02/26/25 13:00 Temperature 97.9 F 02/26/25 13:00 Pulse Rate 86 02/26/25 17:36 Respiratory Rate 20 02/26/25 17:36 Blood Pressure 122/81 02/26/25 17:36 Pulse Oximetry 99 02/26/25 17:36 Oxygen Delivery Room Air 02/26/25 13:54 Medical Decision Making MDM Narrative Medical decision making narrative: 61-year-old male to the emergency department for evaluation for midsternal chest pain. Patient is currently afebrile with no leukocytosis hemoglobin of 12.6. Patient does have history of chronic kidney disease and creatinine is 1.84. CTA chest abdomen pelvis showed no evidence of word dissection on re-evaluation patient states he does feel improved. Patient had negative cardiac workup. Patient states he feels improved and is requesting to be discharged home. Patient reports he did have significant improvement of symptoms from the GI cocktail. Patient was encouraged close follow-up with primary care physician for additional cardiac rule out. All questions concerns were addressed. Differential Diagnosis Differential Diagnosis: Pulmonary embolism, ACS, pneumonia, gastritis, esophagitis, pneumothorax Vital Signs Vital Signs: Vital Signs Temperature 97.9 F 02/26/25 13:00 Pulse Rate 83 02/26/25 13:00 Respiratory Rate 16 02/26/25 13:00 Blood Pressure 105/65 02/26/25 13:00 Pulse Oximetry 97 02/26/25 13:00 Oxygen Delivery Room Air 02/26/25 13:00 Temperature 97.9 F 02/26/25 13:00 Pulse Rate 86 02/26/25 17:36 Respiratory Rate 20 02/26/25 17:36 Blood Pressure 122/81 02/26/25 17:36 Pulse Oximetry 99 02/26/25 17:36 Oxygen Delivery Room Air 02/26/25 13:54 Lab Data Lab results reviewed: Yes I reviewed the patient's lab results. 02/26/25 13:11 02/26/25 13:11 Labs: Lab Results 02/26/25 02/26/25 Range/Units 13:11 15:57 WBC 7.1 (4.5-10.0) K/mm3 RBC 4.08 L (4.6-6.20) M/mm3 Hgb 12.6 L (14.0-18.0) g/dL Hct 39.8 L (42.0-52.0) % MCV 97.5 (80-100) fl MCH 30.9 (26-34) pg MCHC 31.7 L (32-36) g/dl RDW 14.2 (11.5-14.5) % Plt Count 197 (150-375) k/mm3 MPV 9.6 (7.4-10.4) fl Immature Gran % (Auto) 0.8 H (0-0.5) % Neut % (Auto) 63.9 (45.5-73.1) % Lymph % (Auto) 22.3 (18.3-44.2) % Dane % (Auto) 8.5 (2.6-8.5) % Eos % (Auto) 3.7 (0-4.4) % Baso % (Auto) 0.8 (0.2-1.2) % Lymph # (Auto) 1.58 (0.9-3.2) K/mm3 Dane # (Auto) 0.6 (0.1-0.6) K/mm3 Eos # (Auto) 0.3 (0-0.3) K/mm3 Baso # (Auto) 0.1 (0.0-0.1) K/mm3 Abs Immat Gran (auto) 0.06 H (0.00-0.031) K/mm3 Absolute Neuts (auto) 4.5 (1.3-6.7) K/mm3 Absolute Nucleated RBC 0.000 (0.0-0.012) K/mm3 Nucleated RBC % 0.0 (0.0-0.2) % PT 12.3 (11.1-14.7) Seconds INR 0.9 APTT 23.9 (22.3-36.8) Seconds Sodium 139 (137-145) mmol/L Potassium 5.2 H (3.4-5.0) mmol/L Chloride 102 (98-107) mmol/L Carbon Dioxide 30 (22-30) mmol/L Anion Gap 7 (4-12) mmol/L BUN 46 H (9-20) mg/dL Creatinine 1.84 H (0.7-1.3) mg/dL Estim Creat Clear Calc 48 ml/min Estimated GFR 37 L (59 - ) Glucose 300 H (65-110) mg/dL Calcium 9.7 (8.4-10.2) mg/dL Total Bilirubin 0.3 (0.2-1.3) mg/dL AST 26 (17-59) U/L ALT 26 (6-50) U/L Alkaline Phosphatase 144 H (38-126) U/L Troponin I < 0.012 < 0.012 (0.000-0.034) ng/mL Total Protein 7.1 (6.3-8.2) g/dL Albumin 4.2 (3.5-5.1) g/dL Lipase 115 (23-300) U/L Discharge Plan Discharge Clinical Impression: Chest pain Patient Disposition: Home Condition: Stable Instructions: Antibiotic Form, Chest Pain (ED) Additional Instructions: Have close follow-up with your assessment analyst as scheduled. If you have any worsening symptoms and please call or return to the emergency department. Patient Language: [place] Prescriptions: No Action bumetanide 2 mg tablet 2 mg PO DAILY spironolactone 25 mg Tablet 25 mg PO BID gabapentin 300 mg Capsule 2 mg PO TID allopurinol 300 mg tablet 300 mg PO DAILY glimepiride 4 mg PO BID tramadol 50 mg tablet 50 mg PO Q8H PRN (Reason: pain) Qty: 15 0RF albuterol sulfate 90 mcg/actuation HFA aerosol inhaler 2 puff inhalation QID PRN (Reason: shortness of breath or wheezing) Qty: 8.5 0RF (DME) Aerochamber Plus Z Stat Spacer See Rx Instructions .Route Qty: 1 0RF Rx Instructions: As directed doxycycline hyclate 100 mg capsule 100 mg PO BID 7 Days Qty: 14 0RF prednisone 20 mg tablet 40 mg PO DAILY 5 Days Qty: 10 0RF Follow-up/Referrals: PHYSICIAN NOT ON STAFF,NONSTAFF [Primary Care Provider] - Quality HEART score for chest pain patients History: slightly suspicious ECG: normal Age: > or = to 65 years Risk factors: 1 or 2 risk factors Troponin: < or = to 1x normal limit Heart score: 3
[2025-02-26] MEDS: ASPIRIN 81 MG CHEWABLE TABLET 324 MG PO (14:05)
[2025-02-26] MEDS: BELLADONNA ALK/PHENOB ELIX 10 ML, MAG HYDROX/ALUMINUM HYD/SIMETH 30 ML, LIDOCAINE 2% VI... PO (14:07)
--- OUTSIDE RECORDS SUMMARY | 2025-02-26 14:12 | XMS_ITS | Clinical Summary ---
Author Organization [facility] Address [facility] [place] [address] Care Team Providers Care Etl Developer Name Role Phone Unavailable Primary Care Provider Unavailabl e Encounters Date Type Department Care Team Description 01/28/2025 Abstract [facility], [facility] [address] [place] [address] Lucian Rogers MA 01/15/2025 Telephone [facility], [facility] [address] [place], [place] [id number] Ra Joe MD Information ([facility], Pamela Graf, [facility] [place]) 01/02/2025 Telephone [facility], [address] [address] Ra Joe MD Appointment Request 12/03/2024 Scan [facility], [facility] [address] [place] [address] Scanned, Doc Pccl from Last 3 [...] Description 04/24/2025 11:30 AM CDT Office Visit [facility] [address] [place] [phone] Ra Joe MD [facility]. [facility] [address] [place], [place] [id number] Health Maintenance Due Date Last Done Comments [...] topic Meningococcal Vaccine Aged Out No amy jeferson eligible based on patient's age to complete this topic RSV Immunizations Under 20 Months Aged Out No longer eligible based on patient's age to complete this topic Insurance MEDICARE [facility]
--- OUTSIDE RECORDS SUMMARY | 2025-02-26 14:12 | XMS_ITS | Encounter Summary ---
Author Organization [facility] Address [facility] [place] [address] Care Team Providers Care Deputy Director Of Public Works Name Role Phone Unavailable Primary Care Provider Unavailabl e Encounter Details Date Type Department Care Team (Late st Contact Info) Description 01/28/2025 Abstract [facility], [address] [address] Lucian Rogers MA Social History Tobacco Use [...] Description 04/24/2025 11:30 AM CDT Office Visit [facility] [address] [phone] Ra Joe MD [facility]. [address] [address] documented as of this encounter Procedures Procedure [...]
--- OUTSIDE RECORDS SUMMARY | 2025-02-26 14:12 | XMS_ITS | Referral Summary ---
Author Organization [address] Address [address] [place] [phone] Care Team Providers Care Thread Inspector Name Role Phone Braden Mckeon MD Primary Care Provi olinda Encounters Date Type Department Care Team Description 02/16/2025 Results Follow-Up [facility] Medical [facility] at [address] [phone] Braden Mckeon MD PSA screen, Lipid panel, CBC with auto differential, Additional followed-up results: 11 02/13/2025 2:40 PM CDT Lab [facility] - [facility] at [place] [id number] Screening PSA (prostate specific antigen); Type 2 diabetes mellitus without complication, without long-term current use of insulin (HCC); Inflammatory arthritis; Chronic gout without tophus, unspecified cause, unspecified site 02/13/2025 2:00 PM CDT Office Visit [facility] Primary Care at [address] [place] [address] Braden Mckeon MD Type 2 [...] complication, without long-term current use of insulin ([facility]) Take 1 tablet (500 mg total) by [...] on file Legal Sex Male 4:50 PM [employer] NEGATIVE Gender Identity Not on file Sexual Orientation [...] last revised on 2020. Testing performed by: [facility], [address] [place]., [address] Blood 02/13/2025 2:47 PM CDT 02/14/2025 10:20 AM CDT us Braden Mckeon MD LAB BLOOD ORDERABLE S Final Result LUNA [address] Department [place] [address] * (ABNORMAL) eGFR (02/13/2025 2:47 [...] was last reviewed 2021. Testing performed by: [address] [address] Blood 02/13/2025 2:47 PM CDT 02/13/2025 8:04 PM CDT us Braden Mckeon MD LAB BLOOD ORDERABLE S Final Result [address] Department [place] [address] * Differential, auto (02/13/2025 2:47 PM CDT) Neutrophil abs 5.99 1.50 - 6.50 K/cumm Comment:Testing performed by : [address] [address] Imm gran abs 0.09 0.00 - 0.10 K/cumm [facility] Comment:Testing performed by : [address] [address] Lymphocyte abs 2.11 0.80 - 3.30 K/cumm [facility] Comment:Testing performed by : [address] [address] Monocyte abs 0.55 0.20 - 0.80 K/cumm [facility] Comment:Testing performed by : [address] [address] Eosinophil abs 0.25 0.00 - 0.50 K/cumm [facility] Comment:Testing performed by : [address] [address] Basophil abs 0.06 0.00 - 0.10 K/cumm [facility] Comment:Testing performed by : [address] [address] Neutrophil pct 66.1 % [facility] Comment: Interpretive Data Percent cell count reference ranges are not reported, since discordance with absolute values may lead to misinterpretation of CBC data. Current Interpretive Data was last revised on 2017. Testing performed by: [facility], [address] [place] [address]., [address] Imm gran pct 1.0 % [facility] Comment: Interpretive Data Percent cell count reference ranges are not reported, since discordance with absolute values may lead to misinterpretation of CBC data. Current Interpretive Data was last revised on 2017. Testing performed by: [address] [address] Lymphocyte pct 23.3 % [facility] Comment: Interpretive Data Percent cell count reference ranges are not reported, since discordance with absolute values may lead to misinterpretation of CBC data. Current Interpretive Data was last revised on 2017. Testing performed by: [address] [address] Monocyte pct 6.1 % [facility] Comment: Interpretive Data Percent cell count reference ranges are not reported, since discordance with absolute values may lead to misinterpretation of CBC data. Current Interpretive Data was last revised on 2017. Testing performed by: [address] [address] Eosinophil pct 2.8 % [facility] Comment: Interpretive Data Percent cell count reference ranges are not reported, since discordance with absolute values may lead to misinterpretation of CBC data. Current Interpretive Data was last revised on 2017. Testing performed by: [address] [address] Basophil pct 0.7 % [facility] Comment: Interpretive Data Percent cell count reference ranges are not reported, since discordance with absolute values may lead to misinterpretation of CBC data. Current Interpretive Data was last revised on 2017. Testing performed by: [address] [address] Blood 02/13/2025 2:47 PM CDT 02/13/2025 7:34 PM CDT Braden Mckeon MD LAB BLOOD ORDERABLE S Final Result Performing Organization Address [facility] Co de Phone Number LUNA UNDER[place]OD [address] Department [place] [address] * PSA screen (02/13/2025 2:47 PM CDT) Pathologist [facility] PSA-Total <0.01 <=5.40 ng/mL Comment: Interpretive Data [...] data last revised 21. Testing performed by: [address] [address] Blood 02/13/2025 2:47 PM CDT 02/13/2025 7:34 PM CDT Braden Mckeon MD LAB BLOOD ORDERABLE S Final Result Performing Organization Address [facility] Co de Phone Number LUNA UNDER[place]OD [address] [address] Department [place] [address] * (ABNORMAL) CBC with auto differential (02/13/2025 2:47 PM CDT) [facility] WBC 9.05 3.80 - 9.90 K/cumm Comment:Testing performed by : [address] [address] Hgb 12.8(L) 13.0 - 17.5 g/dL LUNA Comment:Testing performed by : [address] [address] Hct 39.9 38.9 - 50.3 % LUNA Comment:Testing performed by : [address] [address] Plt 242 150 - 400 K/cumm LUNA Comment:Testing performed by : [address] [place]., [address] MPV 10.2 9.1 - 12.3 fL [facility] Comment:Testing performed by : [facility], [address] [place] [address], [address] RBC 4.15(L) 4.30 - 5.80 M/cumm [facility] Comment:Testing performed by : [facility], [address] [place] [address], [address] MCV 96.1 81.3 - 96.4 fL [facility] Comment:Testing performed by : [facility], [address] [place] [address], [address] MCH 30.8 27.1 - 33.3 pg [facility] Comment:Testing performed by : [facility], [address] [place] [address], [address] MCHC 32.1(L) 32.3 - 35.7 g/dL [facility] Comment:Testing performed by : [address], [address] RDW CV 13.8 11.1 - 14.9 % [facility] CH Comment:Testing performed by : [facility], [address] [place] [address], [address] RDW SD 48.8(H) 35.7 - 48.1 fL [facility] Comment:Testing performed by : [address], [address] NRBC abs 0.00 0.00 - 0.01 K/cumm CERNER Comment:Testing performed by : [address], [address] Blood 02/13/2025 2:47 PM CDT 02/13/2025 7:34 PM CDT us Braden Mckeon MD LAB BLOOD ORDERABLE S Final Result [address] Department [place] [address] * Cyclic citrul peptide antibody, IgG (02/13/2025 2:47 PM CDT) Pathologist [facility] CCP Ab <0.5 <=2.9 units/mL Comment: Interpretive data Negative: <3 units/mL Positive: > or equal to 3 units/mL Current interpretive data was last revised on 2016. Testing performed by: [facility], [address] [place]., [address] Blood 02/13/2025 2:47 PM CDT 02/14/2025 10:22 AM CDT Braden Mckeon MD LAB BLOOD ORDERABLE S Final Result LUNA [address] Department [place] [address] * (ABNORMAL) C-peptide (02/13/2025 2:47 PM CDT) C-peptide 13.90(H) 1.10 - 4.40 ng/mL Comment:Testing performed by : [facility], [address] [facility], [place]., [address] Blood 02/13/2025 2:47 PM CDT 02/14/2025 10:21 AM CDT Braden Mckeon MD LAB BLOOD ORDERABLE S Final Result Performing Organization Address [facility]/ZIP Co de Phone Number LUNA [address] [address] Department [place] [address] * (ABNORMAL) Erythrocyte sedimentation rate (02/13/2025 2:47 PM CDT) Erythrocyte sedimentation rate 27(H) 1 - 20 mm/hr Comment:Testing performed by : [facility], [address] [place] [address]., [address] Blood 02/13/2025 2:47 PM CDT 02/13/2025 7:34 PM CDT Braden Mckeon MD LAB BLOOD ORDERABLE S Final Result LUNA [address] Department [place] [address] * CRP (acute phase) (02/13/2025 2:47 PM CDT) CRP 4.3 <=10.0 mg/L Comment:Testing performed by : [address] [address] Blood 02/13/2025 2:47 PM CDT 02/13/2025 7:34 PM CDT Braden Mckeon MD LAB BLOOD ORDERABLE S Final Result Performing Organization Address City/[facility]/ZIP Co de Phone Number LUNA [facility] [place] [address] * Uric acid (02/13/2025 2:47 PM CDT) Pathologist [facility] Uric acid 5.7 3.0 - 8.0 mg/dL Comment:Testing performed by : [facility], [address] [place] [address], [address] Blood 02/13/2025 2:47 PM CDT 02/13/2025 7:34 PM CDT Braden Mckeon MD LAB BLOOD ORDERABLE S Final Result Performing Organization Address [facility] Co de Phone Number [facility] [address] [facility] Department [place] [address] * TSH (02/13/2025 2:47 PM CDT) Pathologist [facility] Thyroid Stimulating Hormone 2.50 0.30 - 4.20 mcIUnit/mL Comment:Testing performed by : [address] [address] Blood 02/13/2025 2:47 PM CDT 02/13/2025 7:34 PM CDT Braden Mckeon MD LAB BLOOD ORDERABLE S Final Result LUNA [address] [facility] Department [place] [address] * (ABNORMAL) Hemoglobin A1c (02/13/2025 2:47 PM CDT) Hgb A1C 12.6(H) 4.0 - 5.6 % Comment:Testing performed by : [address] [address] Estimated Average Glucose 315 mg/dL LUNA Comment: The ADA recommends reporting an estimated Average Glucose (eAG) with all Hemoglobin A1c results using the equation derived from a study of 507 normal and diabetic adults. Minority populations were underrepresented and children were not included. (Diabetes Care 31:0356-1841, 2008). The eAG is not equivalent to a fasting glucose. Testing performed by: [address] [address] Blood 02/13/2025 2:47 PM CDT 02/13/2025 7:34 PM CDT us Braden Mckeon MD LAB BLOOD ORDERABLE S Final Result LUNA [address] [facility] [place] [address] * (ABNORMAL) Lipid panel (02/13/2025 2:47 PM [...] last revised on 2018. Testing performed by: [address] [address] Triglycerides 301(H) <=149 mg/dL LUNA Comment: Interpretive [...] last revised on 2018. Testing performed by: [address] [address] HDL 35(L) >=40 mg/dL LUNA Comment: Interpretive [...] last revised on 2018. Testing performed by: [facility], [address] [place] [address]., [address] LDL, calculated 162(H) <=129 mg/dL LUNA Comment: [...] last revised on 2024. Testing performed by: [address] [address] Non-HDL Cholesterol 219 mg/dL LUNA Comment: Interpretive [...] last revised on 2018. Testing performed by: [address] [address] Chol/HDL ratio 7 LUNA Comment:Testing performed by : [address] [address] Blood 02/13/2025 2:47 PM CDT 02/13/2025 7:34 PM CDT Braden Mckeon MD LAB BLOOD ORDERABLE S Final Result [address] Department [place] [address] * (ABNORMAL) Comprehensive metabolic panel (02/13/2025 2:47 PM CDT) Sodium 137 135 - 145 mmol/L Comment:Testing performed by : [address] [address] Potassium, pl 5.0(H) 3.3 - 4.9 mmol/L LUNA Comment:Testing performed by : [address] [address] Chloride 99 97 - 110 mmol/L [facility] Comment:Testing performed by : [facility], [address] [place] [address]., [address] CO2 23 22 - 32 mmol/L [facility] Comment:Testing performed by : [address] [address] Anion gap 15 2 - 15 mmol/L [facility] Comment:Testing performed by : [facility], [address] [place] [address]., [address] BUN 53(H) 6 - 25 mg/dL [facility] Comment:Testing performed by : [facility], [address] [place] [address], [address] Creatinine 1.56(H) 0.80 - 1.30 mg/dL [facility] Comment:Testing performed by : [address], [address] Glucose 328(H) 70 - 199 mg/dL CERNER [...] was last revised 2022. Testing performed by: [address] [address] Calcium 9.6 8.5 - 10.3 mg/dL [facility] Comment:Testing performed by : [address] [address] Bilirubin, total 0.3 0.1 - 1.2 mg/dL [facility] Comment:Testing performed by : [address] [address] Protein, pl 7.1 6.5 - 8.5 g/dL [facility] Comment:Testing performed by : [address], [address] Albumin 4.1 3.5 - 5.0 g/dL [facility] Comment:Testing performed by : [address] [address] Alk phos 133(H) 40 - 130 Units/L CERPAM Comment:Testing performed by : [facility], [address] [place] [address], [address] ALT 33 7 - 55 Units/L [facility]ER[facility] Comment:Testing performed by : [facility], [address] [place] [address], [address] AST 31 10 - 50 Units/L CERNER Comment:Testing performed by : [facility], [address] [place] [address], [address] Blood 02/13/2025 2:47 PM CDT 02/13/2025 7:34 PM CDT Braden Mckeon MD LAB BLOOD ORDERABLE S Final Result LUNA [address] [facility] Department [place] [address] from Last 3 Months Insurance MEDICARE [facility] MEDICARE SUPPLEMENT Care Teams Thread Inspector Relationship Specialty Start Date End Date Braden Mckeon MD [address] [facility] [address] [place] [address] PCP - General Family Practice 02/13/25
--- OUTSIDE RECORDS SUMMARY | 2025-02-26 14:12 | XMS_ITS | Clinical Summary ---
Author Organization [facility] [facility] Address [address] [place] [address] Care Team Providers Care Second Class Welder Name Role Phone Braden Mckeon MD Primary [...] Department Care Team Description 02/16/2025 Results Follow-Up [facility] Primary Care at [address] [address] Braden Mckeon MD PSA screen, Lipid panel, CBC with auto differential, Additional followed-up results: 11 02/13/2025 2:40 PM CDT Lab [facility] - Outpatient Center at [address] [address] Screening PSA (prostate specific antigen); Type 2 diabetes mellitus without complication, without long-term current use of insulin (HCC); Inflammatory arthritis; Chronic gout without tophus, unspecified cause, unspecified site 02/13/2025 2:00 PM CDT Office Visit [facility] Primary Care at [address] [place] [id number] Braden Mckeon MD Type 2 diabetes mellitus [...] on file 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 Testing performed by: [facility], [address] [facility], [place]., [address] Blood 02/13/2025 2:47 PM CDT 02/14/2025 10:20 AM CDT Braden Mckeon MD LAB BLOOD ORDERABLE S Final Result Performing Organization Address City/[facility] Co de Phone Number LUNA [place] [address] [address] [place] [place] [address] * (ABNORMAL) eGFR (02/13/2025 2:47 [...] last reviewed 2021. Testing performed by: [address] [address] Blood 02/13/2025 2:47 PM CDT 02/13/2025 8:04 PM CDT us Braden Mckeon MD LAB BLOOD ORDERABLE S Final Result Performing Organization Address City/[facility]/ZIP Co de Phone Number LUNA [place] [place] [address] * Differential, auto (02/13/2025 2:47 PM CDT) Neutrophil abs 5.99 1.50 - 6.50 K/cumm Comment:Testing performed by : [address] [address] Imm gran abs 0.09 0.00 - 0.10 K/cumm CERNER CH Comment:Testing performed by : [facility], [address] [place] [address]., [address] Lymphocyte abs 2.11 0.80 - 3.30 K/cumm CERNER CH Comment:Testing performed by : [facility], [address] [place] [address]., [address] Monocyte abs 0.55 0.20 - 0.80 K/cumm CERNER CH Comment:Testing performed by : [facility], [address] [place] [address]., [address] Eosinophil abs 0.25 0.00 - 0.50 K/cumm CERNER CH Comment:Testing performed by : [address] [address] Basophil abs 0.06 0.00 - 0.10 K/cumm CERNER CH Comment:Testing performed by : [address], [address] Neutrophil pct 66.1 % CERNER CH Comment: Interpretive Data Percent cell count reference ranges are not reported, since discordance with absolute values may lead to misinterpretation of CBC data. Current Interpretive Data was last revised on 2017. Testing performed by: [address] [address] Imm gran pct 1.0 % CERNER CH Comment: Interpretive Data Percent cell count reference ranges are not reported, since discordance with absolute values may lead to misinterpretation of CBC data. Current Interpretive Data was last revised on 2017. Testing performed by: [address] [address] Lymphocyte pct 23.3 % CERNER CH Comment: Interpretive Data Percent cell count reference ranges are not reported, since discordance with absolute values may lead to misinterpretation of CBC data. Current Interpretive Data was last revised on 2017. Testing performed by: [address] [address] Monocyte pct 6.1 % CERNER CH Comment: Interpretive Data Percent cell count reference ranges are not reported, since discordance with absolute values may lead to misinterpretation of CBC data. Current Interpretive Data was last revised on 2017. Testing performed by: [facility], [address] [place] [address]., [address] Eosinophil pct 2.8 % [facility] Comment: Interpretive Data Percent cell count reference ranges are not reported, since discordance with absolute values may lead to misinterpretation of CBC data. Current Interpretive Data was last revised on 2017. Testing performed by: [facility], [address] [place] [address]., [address] Basophil pct 0.7 % LUNA Comment: Interpretive Data Percent cell count reference ranges are not reported, since discordance with absolute values may lead to misinterpretation of CBC data. Current Interpretive Data was last revised on 2017. Testing performed by: [address] [address] Blood 02/13/2025 2:47 PM CDT 02/13/2025 7:34 PM CDT Braden Mckeon MD LAB BLOOD ORDERABLE S Final Result LUNA [address] Department [place] [address] * PSA screen (02/13/2025 2:47 PM CDT) [...] last revised 21. Testing performed by: [address] [address] Blood 02/13/2025 2:47 PM CDT 02/13/2025 7:34 PM CDT Braden Mckeon MD LAB BLOOD ORDERABLE S Final Result [address] [place] [address] * (ABNORMAL) CBC with auto differential (02/13/2025 2:47 PM CDT) WBC 9.05 3.80 - 9.90 K/cumm Comment:Testing performed by : [address], [address] Hgb 12.8(L) 13.0 - 17.5 g/dL CERNER CH Comment:Testing performed by : [address], [address] Hct 39.9 38.9 - 50.3 % CERNER CH Comment:Testing performed by : [address], [address] Plt 242 150 - 400 K/cumm CERNER CH Comment:Testing performed by : [address], [address] MPV 10.2 9.1 - 12.3 fL CERNER CH Comment:Testing performed by : [address], [address] RBC 4.15(L) 4.30 - 5.80 M/cumm CERNER CH Comment:Testing performed by : [address], [address] MCV 96.1 81.3 - 96.4 fL CERNER CH Comment:Testing performed by : [address], [address] MCH 30.8 27.1 - 33.3 pg CERNER CH Comment:Testing performed by : [address], [address] MCHC 32.1(L) 32.3 - 35.7 g/dL CERNER CH Comment:Testing performed by : [address], [address] RDW CV 13.8 11.1 - 14.9 % CERNER CH Comment:Testing performed by : [address], [address] RDW SD 48.8(H) 35.7 - 48.1 fL CERNER CH Comment:Testing performed by : [facility], [address] [place] [address]., [address] NRBC abs 0.00 0.00 - 0.01 K/cumm LUNA Comment:Testing performed by : [facility], [address] [place] [address]., [address] Blood 02/13/2025 2:47 PM CDT 02/13/2025 7:34 PM CDT Braden Mckeon MD LAB BLOOD ORDERABLE S Final Result Performing Organization Address [facility] Co de Phone Number LUNA [address] [facility] [place] [place] [address] * Cyclic citrul peptide antibody, IgG (02/13/2025 2:47 PM CDT) CCP Ab <0.5 <=2.9 units/mL Comment: Interpretive data Negative: <3 units/mL Positive: > or equal to 3 units/mL Current interpretive data was last revised on 2016. Testing performed by: [facility], [address] [place] [address]., [address] Blood 02/13/2025 2:47 PM CDT 02/14/2025 10:22 AM CDT Braden Mckeon MD LAB BLOOD ORDERABLE S Final Result Performing Organization Address [facility] Co de Phone Number LUNA [address] [facility] [place] [place] [address] * (ABNORMAL) C-peptide (02/13/2025 2:47 PM CDT) C-peptide 13.90(H) 1.10 - 4.40 ng/mL Comment:Testing performed by : [facility], [address] [place]., [address] Blood 02/13/2025 2:47 PM CDT 02/14/2025 10:21 AM CDT Braden Mckeon MD LAB BLOOD ORDERABLE S Final Result Performing Organization Address [facility] Co de Phone Number LUNA [place] [address] [address] [facility] [place] [address] * (ABNORMAL) Erythrocyte sedimentation rate (02/13/2025 2:47 PM CDT) Erythrocyte sedimentation rate 27(H) 1 - 20 mm/hr Comment:Testing performed by : [facility], [address] [place] [address]., [address] Blood 02/13/2025 2:47 PM CDT 02/13/2025 7:34 PM CDT Braden Mckeon MD LAB BLOOD ORDERABLE S Final Result Performing Organization Address [facility] de Phone Number LUNA [address] [place] [address] * CRP (acute phase) (02/13/2025 2:47 PM CDT) CRP 4.3 <=10.0 mg/L Comment:Testing performed by : [facility], [address] [place] [address]., [address] Blood 02/13/2025 2:47 PM CDT 02/13/2025 7:34 PM CDT us Braden Mckeon MD LAB BLOOD ORDERABLE S Final Result Performing Organization Address [facility]/ZIP Co de Phone Number LUNA [place] [address] [address] [facility] [place] [address] * Uric acid (02/13/2025 2:47 PM CDT) Uric acid 5.7 3.0 - 8.0 mg/dL Comment:Testing performed by : [facility], [address] [place] [address]., [address] Blood 02/13/2025 2:47 PM CDT 02/13/2025 7:34 PM CDT Braden Mckeon MD LAB BLOOD ORDERABLE S Final Result Performing Organization Address [facility] de Phone Number LUNA [address] [facility] [place] [address] * TSH (02/13/2025 2:47 PM CDT) Thyroid Stimulating Hormone 2.50 0.30 - 4.20 mcIUnit/mL Comment:Testing performed by : [address] [address] Blood 02/13/2025 2:47 PM CDT 02/13/2025 7:34 PM CDT Braden Mckeon MD LAB BLOOD ORDERABLE S Final Result Performing Organization Address [facility] de Phone Number LUNA [address] Department [place] [address] * (ABNORMAL) Hemoglobin A1c (02/13/2025 2:47 PM CDT) Pathologist [facility] Hgb A1C 12.6(H) 4.0 - 5.6 % Comment:Testing performed by : [address] [address] Estimated Average Glucose 315 mg/dL LUNA Comment: The ADA recommends reporting an estimated Average Glucose (eAG) with all Hemoglobin A1c results using the equation derived from a study of 507 normal and diabetic adults. Minority populations were underrepresented and children were not included. (Diabetes Care 31:9870-4580, 2008). The eAG is not equivalent to a fasting glucose. Testing performed by: [address] [address] Blood 02/13/2025 2:47 PM CDT 02/13/2025 7:34 PM CDT Braden Mckeon MD LAB BLOOD ORDERABLE S Final Result Performing Organization Address [facility]/State/ZIP Co de Phone Number LUNA [phone] [place] [address] Department [place] [address] * (ABNORMAL) Lipid panel (02/13/2025 2:47 PM [...] last revised on 2018. Testing performed by: [facility], [address] [place] [address]., [address] Triglycerides 301(H) <=149 mg/dL LUNA [place] Comment: [...] last revised on 2018. Testing performed by: [facility], [address] [place] [address]., [address] HDL 35(L) >=40 mg/dL LUNA [place] Comment: [...] revised on 2018. Testing performed by: [address] [address] LDL, calculated 162(H) <=129 mg/dL LUNA [place] [...] Circulation 2004;110:227 3. Fred Recinos et al. ISLVIA Cardiol. 2019December 19;5(5):540-548. doi: 10.1001/[email or web address].2020.0013 Current Interpretive Data was last revised on 2024. Testing performed by: [address] [address] Non-HDL Cholesterol 219 mg/dL LUNA Comment: Interpretive [...] revised on 2018. Testing performed by: [address] [address] Chol/HDL ratio 7 LUNA Comment:Testing performed by : [address] [address] Blood 02/13/2025 2:47 PM CDT 02/13/2025 7:34 PM CDT us Braden Mckeon MD LAB BLOOD ORDERABLE S Final Result [address] Department [place] [address] * (ABNORMAL) Comprehensive metabolic panel (02/13/2025 2:47 PM CDT) Sodium 137 135 - 145 mmol/L Comment:Testing performed by : [address] [address] Potassium, pl 5.0(H) 3.3 - 4.9 mmol/L [facility] Comment:Testing performed by : [address], [address] Chloride 99 97 - 110 mmol/L [facility] Comment:Testing performed by : [address], [address] CO2 23 22 - 32 mmol/L [facility] Comment:Testing performed by : [address], [address] Anion gap 15 2 - 15 mmol/L [facility] Comment:Testing performed by : [address], [address] BUN 53(H) 6 - 25 mg/dL [facility] Comment:Testing performed by : [address], [address] Creatinine 1.56(H) 0.80 - 1.30 mg/dL [facility] Comment:Testing performed by : [address], [address] Glucose 328(H) 70 - 199 mg/dL [facility] Comment: Interpretive Data Fasting glucose >/= [...] was last revised 2022. Testing performed by: [facility], [address] [place] [address]., [address] Calcium 9.6 8.5 - 10.3 mg/dL CERNER CH Comment:Testing performed by : [address] [address] Bilirubin, total 0.3 0.1 - 1.2 mg/dL CERNER CH Comment:Testing performed by : [facility], [address] [place] [address]., [address] Protein, pl 7.1 6.5 - 8.5 g/dL CERNER CH Comment:Testing performed by : [facility], [address] [place] [address]., [address] Albumin 4.1 3.5 - 5.0 g/dL CERNER CH Comment:Testing performed by : [address] [address] Alk phos 133(H) 40 - 130 Units/L CERNER CH Comment:Testing performed by : [facility], [address] [place] [address]., [address] ALT 33 7 - 55 Units/L CERNER CH Comment:Testing performed by : [address] [address] AST 31 10 - 50 Units/L CERNER CH Comment:Testing performed by : [address] [address] Blood 02/13/2025 2:47 PM CDT 02/13/2025 7:34 PM CDT us Braden Mckeon MD LAB BLOOD ORDERABLE S Final Result [facility] [address] [address] Department [place] [address] from Last 3 Months Insurance MEDICARE [facility] MEDICARE SUPPLEMENT Care Teams Second Class Welder Relationship Specialty Start Date End Date Braden Mckeon MD [address] [facility] [address] [place] [address] PCP - General Family Practice 02/13/25
[2025-02-26 14:59] VITALS: BP 124/81; PULSE 91; RESP 18; O2SAT 97
--- NOTE | 2025-02-26 15:55 | ECG_ITS ---
Test Date: 2025-02-26 16:06:25 Measurements Intervals Maynard Rate: 87 P: 138 UT: 163 QRS: -53 QRSD: 108 T: 58 QT: 379 QTc: 458 Interpretive Statements SINUS RHYTHM LOW QRS VOLTAGE IN PRECORDIAL LEADS [QRS DEFLECTION < 1.0 mV IN CHEST LEADS] LEFT ANTERIOR FASCICULAR BLOCK [QRS AXIS <= -45, QR IN I, RS IN II] POSSIBLE LATERAL MYOCARDIAL INFARCTION , OF INDETERMINATE AGE [30 ms Q WAVE IN I/aVL/V5/V6] Compared to ECG 02/26/2025 13:04:30 Myocardial infarct finding still present Electronically Signed On 02-27-2025 11:40:52 CDT by Sudarshan Field M.D.
[2025-02-26 16:08] VITALS: BP 121/78; PULSE 87; RESP 18; O2SAT 98
[2025-02-26 16:35] LABS: Troponin I < 0.012 ng/mL (0.000-0.034)
[2025-02-26 17:36] VITALS: BP 122/81; PULSE 86; RESP 20; O2SAT 99
== END 2025-02-26 17:38 | disposition home or self-care (01) ==
PROVIDERS: Emergency Medicine; Emergency Provider Emergency Medicine
DX: R07.9 Chest pain, unspecified (principal); E11.9 Type 2 diabetes mellitus without complications
CPT/HCPCS: 36415; 71046; 71275; 74174; 80053; 83690; 84484; 85025; 85610; 85730; 93005; 99284; A9270; Q9967

== ENCOUNTER 2025-05-01 14:47 | Outpatient (CLI) | payer MEDICARE, BC, SELFPAY ==
--- OUTSIDE RECORDS SUMMARY | 2023-11-03 07:20 | XMS_ITS | Continuity of Care Document ---
Author Organization [facility] Address [address] [place] [address] Phone Care Team Providers Care Stove Bottom Worker Name Role Phone Yoel Anguiano MD Unavailable [...] Procedure Date CPTR OPHTH DX IMG POST [facility] EYE EXAM & TREATMENT CPTR OPHTH DX IMG POST [facility] EYE EXAM, NEW PATIENT Advance Directives Directive Yes / No Effective Date File Name No Information Encounters Encounter Description Practice Location Reason(s) For Visit Diagnoses Date Provider Providers Copied on Encounter [facility], [address], [place], [place], [id number], [place] tel:[phone] [place] Office follow-up (chief complaint) Nonexudative age-related macular degeneration, bilateral, early dry stageCombined forms of age-related cataract, bilateral 4 Lord Yoel Odonnell [address], [address], [place], [place], [id number], [place]. tel:[phone] Referring Provider: Thomas Thomason [address], [place], [address] . tel:[phone] [facility], [address], [place], [place], [address], tel:[phone] [facility] Office the retina (chief complaint) Nonexudative age-related macular degeneration, bilateral, early dry stageCombined forms of age-related cataract, bilateral 3 Lord Yoel Odonnell [address], [address], [place], [place], [address], [place]. tel:[phone] Referring Provider: Thomas Thomason [address], [place], [address] . tel:[phone] Family History Family Member Type Diagnosis Age At Onset Problem Family history of degenerati ve disorder of macula Daughter Problem malignant neopla sm of breast in first degree relative Mother Problem malignant neopla sm of breast in first degree relative Problem Family history of glaucoma Payers Payer name Insurance type Covered libertarian ID Authoriza tion(s) [place] [id number] [facility] [id number] Social History Type Description Quantity Date Captured [...] Patient Education Health Informa tion for You: [employer] completed Patient Education Health Informa tion for You: [employer] Connect completed History Of Present Illness Encounter [...]
--- NOTE | ~2025-05-01 | CT_ITS ---
EXAMINATION: CT abdomen pelvis w con DATE: 05/01/2025 15:36 INDICATION: Abdominal pain. Nausea. TECHNIQUE: Computed tomography (CT) of the abdomen and pelvis was performed with 100 mL Omnipaque 350 intravenous contrast. Automated exposure control and iterative reconstruction technique were employed. The dose-length product was 1374.04 mGy-cm. COMPARISON: CT abdomen and pelvis 02/26/25 FINDINGS: The visualized portions of the lung bases demonstrate mild atelectasis. There is a stable 5 mm nodule in right lower lobe, likely benign. No pleural effusion. The heart size is normal. No pericardial effusion. There is diffuse hepatic steatosis with focal sparing adjacent to the gallbladder fossa. There is a 5 mm cyst in the liver. The gallbladder, spleen, pancreas, and adrenal glands are normal. There is cortical thinning of the kidneys. There are bilateral inguinal hernias containing fat. There are no dilated loops of bowel. The appendix is normal. There are no pathologically enlarged lymph nodes. There is no free intraperitoneal fluid. There is severe thoracic and lumbar spondylosis. IMPRESSION: 1. Diffuse hepatic steatosis. 2. Bilateral inguinal hernias containing fat. Reviewed, dictated and finalized at location E.
[2025-05-01 15:16] LABS: Estimated Glomerular Filt Rate 35
--- OUTSIDE RECORDS SUMMARY | 2025-05-01 16:27 | XMS_ITS | Patient Health Record ---
Author Organization [employer] Bill ing Address [address] [place] [address] Support Name Relationship Address Phone Mariaelena Poon Emergency Contact [address] [place] [address] Norris Poon Guarantor Unknown Reason For Referral [...] Problem Status W/U Status Risk Notes Problem 36117739 Cramps, muscle, general (R25.2) Active confirmed Problem 059773667 Iron deficiency anemia due to chronic blood loss (D50.0) Active confirmed Problem 20794174 Hypogonadism in male (E29.1) Active confirmed Problem 26904540 Fatigue, unspecified type (R53.83) Active confirmed Problem 190038167 Hx of malignant neoplasm of prostate (Z85.46) Active confirmed Problem 982420335 Abnormal endocrine laboratory test finding (R68.89) Active confirmed Plan Of Treatment Pending Test Test Name Order Date CMP Comprehensive Metabolic Panel ([facility]) 80509 01/23/2019 T4, Free ([facility], IHC) 46972 01/23/2019 LH, Luteinizing Hormone ([facility]), 79279 12/2018 Magnesium (GM), [address]229 01/23/2019 TSH ([facility]), [address] 01/23/2019 Cortisol, Random (Serum) 01/23/2019 DHEA Sulfate, Serum by ECLIA 01/23/2019 ACTH (Adrenocorticotropic Horm), Plasma 01/23/2019 Insulin Like Growth Factor 1 (IGF1) 12/2018 Prolactin 01/23/2019 Reticulocyte Count, Automated 01/23/2019 Testosterone, Total ([facility]), [address] 019 Iron and TIBC ([facility] only) 01/23/2019 21 Hydroxylase Antibody 01/23/2019 CBC with Auto Diff ([facility] IHC) 01/23/2019 Insurance Providers Payer Name Payer Address Payer Phone Subscriber Number Group Number Insured Name Patient Relationship to Insured Coverage Start Date Coverage End Date [facility] [address] [place]ON FERNANDEZ [id number] Norris Paz Self - patient is the [...]
--- OUTSIDE RECORDS SUMMARY | 2025-05-01 16:30 | XMS_ITS | Patient Health Record ---
Author Organization [facility] Address [address] [facility] [address] [place] [address] Care Team Providers Care Vice President Medical Affairs Name Role Phone Norris Ayala Unavailable [phone] Kameron Lopez PA-C Unavailable Unavailable Reason For [...] Risk Notes Problem Malignant neoplasm of prostate (690079426) Malignant neoplasm of prostate (C61) 04/25/20 14 Active confirmed [id number] 838- Problem Erectile dysfunction following radical prostatectomy (459329013045915) Erectile dysfunction following radical prostatectomy (N52.31) 01/02/20 15 Active confirmed [id number] [id number]- Problem Postprocedural membranous urethral stricture (695738884526908) 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) 10/20/19 17 Active confirmed [id number] 838- Problem Gross hematuria (986191953) Gross hematuria (R31.0) 10/20/19 17 Active confirmed [id number] 838- Problem Frequency of micturition (433198568) Frequency of micturition (R35.0) 10/28/19 17 Active confirmed [id number] 838- Problem Nodular prostate w/ urinary obstruction (600.11) 04/03/20 14 Active confirmed [id number] 838- Problem Elevated PSA (624375813) Elevated PSA (790.93) 04/03/20 14 Problem resolved confirmed [id number] 838- Plan Of Treatment Pending Test Test Name Order Date Urinalysis 02/24/2020 Insurance Providers Payer Name Payer Address Payer Phone Subscriber Number Group Number Insured Name Patient Relationship to Insured Coverage Start Date Coverage End Date Medicare [address] [place] [address] [id number] Norris Paz Self - patient is the insured [facility] [address] [place], [place] [phone] [id number] Norris Paz Self - patient is the insured Medical (General) History Medical History History ICD Code CHF PHA type 2 diabetes kidney disease Surgical History Surgery Date(Month/Year) prostatectomy
--- OUTSIDE RECORDS SUMMARY | 2025-05-01 16:30 | XMS_ITS | Encounter Summary ---
Author Organization [facility] Healthcare Address [address] [place] [id number] Care Team Providers Care Finish Remover Name Role Phone Braden Mckeon MD Primary Care [facility] Encounter Details Date Type Department Care Team (Late st Contact Info) Description 04/03/2025 Results Follow-Up [facility] Primary Care at [address] [place] [address] Braden Mckeon MD [address] [facility] [address] [place] [address] Albumin Creatinine Ratio, Urine, CBC with auto differential, Protime-INR, Additional followed-up results: 2 Social History Tobacco Use Types Packs/Day Years Used Date Smoking Tobacco: Never Passive Smoke Exposure: Never Smokeless Tobacco: Never PHQ-2 Answer Date Recorded PHQ-2 Total Score (If total score is 3 or more points, staff should administer the PHQ-9) 0 04/02/2025 PHQ-9 Answer Date Recorded PHQ-9 Total Score 0 04/02/2025 Sex and Gender Information Value Date Recorded Sex Assigned at Not on file Legal Sex Male 4:50 PM [employer] Gender Identity Not on file Sexual Orientation Not on file documented as of this encounter Plan of Treatment Not on file documented as of this encounter Visit Diagnoses Not on filedocumented in this encounter Care Teams Finish Remover Relationship Specialty Start Date End Date Braden Mckeon MD [address] [id number] PCP - General Family Practice 02/13/25 documented as of this encounter
--- OUTSIDE RECORDS SUMMARY | 2025-05-01 16:30 | XMS_ITS | Clinical Summary ---
Author Organization [facility] [place] [address] [facility] Address [address] [place] [address] Care Team Providers Care Branch Associate Teller Name Role Phone Braden Mckeon MD Primary [...] total) by mouth daily 90 tablet 1 02/19/20 25 025 Active metFORMIN (GLUCOPHAGE) 500 mg tabletIndications: Type 2 diabetes mellitus without complication, without long-term current use of insulin (HCC) Take 1 tablet (500 mg total) by mouth 2 (two) times a day with meals 180 tablet 1 02/19/20 025 Active Ventolin HFA 90 mcg/actuation inhaler INHALE 2 PUFFS BY MOUTH EVERY 6 HOURS FOR 7 DAYS NEEDED FOR WHEEZING 11/28/19 25 Active rOPINIRole (REQUIP) 2 mg tablet Take 2 tablets (4 mg total) by mouth 2 (two) times a day 12/11/19 25 Active verapamiL (CALAN) 40 mg tablet Take 1 tablet (40 mg total) by mouth 2 (two) times a day 11/26/[address] (CYMBALTA) 30 mg capsule Take 1 capsule (30 mg total) by mouth daily 90 capsule 1 03/03/20 25 026 Active levothyroxine (SYNTHROID) 25 mcg tablet Take 1 tablet (25 mcg total) by mouth early childhood coordinator before breakfast 90 tablet 1 03/03/20 25 026 Active indomethacin (INDOCIN) 50 mg capsule Take 1 capsule (50 mg total) by mouth 3 (three) times a day with meals 270 capsule 1 03/27/20 25 026 Active dextroamphetamine- amphetamine (ADDERALL) 20 mg tablet Take 1 tablet (20 mg total) by mouth 2 (two) times a day 60 tablet 04/02/[address] (PROTONIX) 40 mg EC tabletIndications: Abdominal pain Take 1 tablet (40 mg total) by mouth daily 90 tablet 1 04/02/20 25 026 Active dextroamphetamine- amphetamine (ADDERALL) 20 mg tablet Take 1 tablet (20 mg total) by mouth daily 30 tablet 03/27/20 25 025 Discontin ued(Reord er) Active Problems Problem Noted Date Diagnosed Date Abdominal pain 04/02/2025 Assessment & Plan (04/02/2025 2:05 PM CDT): Orders: Ambulatory referral to Gastroenterology; Future pantoprazole DR (PROTONIX) 40 mg EC tablet; Take 1 tablet (40 mg total) by mouth daily Lipase; Future CT Abdomen Pelvis W WO Contrast; Future Nausea 04/02/2025 Assessment & Plan (04/02/2025 2:05 PM CDT): Orders: Ambulatory referral to Gastroenterology; Future CT Abdomen Pelvis W WO Contrast; Future Chronic fatigue syndrome 04/02/2025 Assessment & Plan (04/02/2025 2:05 PM CDT): Easy bruisability 04/02/2025 Assessment & Plan (04/02/2025 2:05 PM CDT): Orders: CBC with auto differential; Future Protime-INR; Future aPTT; Future Fatty liver disease, nonalcoholic 04/02/2025 Assessment & Plan (04/02/2025 2:05 PM CDT): Orders: CT Abdomen Pelvis W WO Contrast; Future Type 2 diabetes mellitus wit hout complication, without long-term current use of insulin 02/13/2025 Assessment & Plan (04/02/2025 2:05 PM CDT): Orders: Albumin Creatinine Ratio, Urine; Future Assessment & Plan (02/13/2025 2:28 PM CDT): [...] 38.9 in adult 02/13/2025 Assessment & Plan (04/02/2025 2:05 PM CDT): Assessment & Plan (02/13/2025 2:28 PM CDT): Paroxysmal atrial fibrillation 02/13/2025 Assessment & Plan (02/13/2025 2:28 PM CDT): Inflammatory arthritis 02/13/2025 Assessment & Plan (02/13/2025 2:28 PM CDT): Orders: CBC with auto differential; Future NATASHA ab ql w/rflx to NATASHA qn; Future Erythrocyte sedimentation rate; Future Cyclic citrul peptide antibody, IgG; Future CRP (acute phase); Future Encounters Date Type Department Care Team Description 04/03/2025 Telephone [facility] at [address] [phone] Braden Mckeon MD 04/03/2025 Results Follow-Up [facility] at [address] [phone] Braden Mckeon MD Albumin Creatinine Ratio, Urine, CBC with auto differential, Protime-INR, Additional followed-up results: 2 04/03/2025 Telephone [facility] at [address] [phone] Braden Mckeon MD 04/02/2025 2:30 PM CDT Lab [facility] - Outpatient Center at [address] [address] Type 2 diabetes mellitus without complication, without long-term current use of insulin (HCC); Easy bruisability; Abdominal pain 04/02/2025 1:45 PM CDT Office Visit [facility] at [address] [phone] Braden Mckeon MD Class 2 severe obesity due to excess calories with serious comorbidity and body mass index (BMI) of 38.0 to 38.9 in adult (HCC) (Primary Dx); Type 2 diabetes mellitus without complication, without long-term current use of insulin (HCC); Abdominal pain; Nausea; Chronic fatigue syndrome; Easy bruisability; Fatty liver disease, nonalcoholic 03/27/2025 Orders Only [facility] at [address] [phone] Braden Mckeon MD 03/03/2025 Telephone [facility] at [address] [phone] Braden Mckeon MD Med Refill 02/16/2025 Results Follow-Up [facility] at [address] [phone] Braden Mckeon MD PSA screen, Lipid panel, CBC with auto differential, Additional followed-up results: 11 02/13/2025 2:40 PM CDT Lab [facility] - Outpatient Center at [place] [phone] Screening PSA (prostate specific antigen); Type 2 diabetes mellitus without complication, without long-term current use of insulin (HCC); Inflammatory arthritis; Chronic gout without tophus, unspecified cause, unspecified site 02/13/2025 2:00 PM CDT Office Visit [facility] at [address] [phone] Braden Mckeon MD Type 2 diabetes mellitus [...] Immunization Administration Dates Next Due Influenza, Unspecified 05/30/2024(Deferr ed: Patient Refused),05/30/2024(Deferred: Patient Refused) Social History Tobacco Use Types Packs/Day [...] on file 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 Gender Identity Not on file Sexual Orientation Not on file Obstetrics History Last Filed Vital Signs Vital Sign Reading Time Taken Comments Blood Pressure 116/60 04/02/2025 1:33 PM CDT Pulse 100 04/02/2025 1:33 PM CDT Temperature 36.6 C (97.9 F) 04/02/2025 1:33 PM CDT Respiratory Rate 21 04/02/2025 1:33 PM CDT Oxygen Saturation 98% 04/02/2025 1:33 PM CDT Inhaled Oxygen Concentration - - Weight 129.3 kg (285 lb) 04/02/2025 1:33 PM CDT Height 182.9 cm (6' 0.01) 04/02/2025 1:33 PM CD T Body Mass Index 38.64 04/02/2025 1:33 PM CDT Plan of Treatment Health Maintenance Due Date Last Done Comments Colon Cancer Screening-Colonoscopy 1955 Hepatitis C Screening 1955 Dilated Eye Exam 1955 Foot Exam 1955 DTaP/Tdap/Td Vaccine (1 - Tdap) 11/10/1967 Hepatitis B Screening 1974 Pneumococcal vaccine 65+ (1 of 2 - PCV) 11/10/1975 Zoster Vaccine (1 of 2) 2006 Well Visit 65+ 2021 Influenza Vaccine (#1) 2025 Hemoglobin A1C 08/15/2025 02/13/2025 Fall Risk Assessment 02/13/2026 02/13/2025 Lipid Panel 02/13/2026 02/13/2025 eGFR 02/13/2026 02/13/2025 Albumin Creatinine Ratio, Urine 04/02/2026 Depression Screening 04/02/2026 04/02/2025, 04/02/2025, 02/13/2025, Additional history exists Prostate Cancer Screening-PSA 02/13/2027 02/13/2025 Procedures Procedure Name Priority Date/Time Associated Diagnosis Comments DIFFERENTIAL AUTO Routine 04/02/2025 2:2 3 PM CDT Easy bruisability LIPASE Routine 04/02/2025 2:23 PM CDT Abdominal pain PROTIME-INR Routine 04/02/2025 2:23 PM CDT Easy bruisability CBC WITH AUTO DIFFERENTIAL Routine 04/02/2025 2:23 PM CDT Easy bruisability ALBUMIN CREATININE RATIO, URINE Routine 04/02/2025 2:23 PM CDT Type 2 diabetes mellitus without complication, without long-term current use of insulin ([facility]) EGFR Routine 02/13/2025 2:47 PM CDT Type 2 diabetes mellitus without complication, without long-term current use of insulin ([facility]) DIFFERENTIAL AUTO Routine 02/13/2025 2:4 7 PM [...] complication, without long-term current use of insulin ([facility]) C-PEPTIDE Routine 02/13/2025 2:47 PM CDT Type 2 diabetes mellitus without complication, without long-term current use of insulin ([facility]) URIC ACID Routine 02/13/2025 2:47 PM CDT [...] antigen) from Last 3 Months Results * (ABNORMAL) Differential, auto (04/02/2025 2:23 PM CDT) Pathologist [facility] Neutrophil abs 5.61 1.50 - 6.50 K/cumm Comment:Testing performed by : [facility], [address] [place] [address]., [id number] Imm gran abs 0.11(H) 0.00 - 0.10 K/cumm CERNER Comment:Testing performed by : [address] [address] Lymphocyte abs 1.87 0.80 - 3.30 K/cumm CERNER Comment:Testing performed by : [address] [address] Monocyte abs 0.54 0.20 - 0.80 K/cumm CERNER Comment:Testing performed by : [address] [address] Eosinophil abs 0.31 0.00 - 0.50 K/cumm CERNER Comment:Testing performed by : [address] [address] Basophil abs 0.06 0.00 - 0.10 K/cumm CERNER Comment:Testing performed by : [address], [address] Neutrophil pct 66.0 % CERNER Comment: Interpretive Data Percent cell count reference ranges are not reported, since discordance with absolute values may lead to misinterpretation of CBC data. Current Interpretive Data was last revised on 2017. Testing performed by: [facility], [address] [place] [address]., [address] Imm gran pct 1.3 % CERNER Comment: Interpretive Data Percent cell count reference ranges are not reported, since discordance with absolute values may lead to misinterpretation of CBC data. Current Interpretive Data was last revised on 2017. Testing performed by: [address], [address] Lymphocyte pct 22.0 % CERNER Comment: Interpretive Data Percent cell count reference ranges are not reported, since discordance with absolute values may lead to misinterpretation of CBC data. Current Interpretive Data was last revised on 2017. Testing performed by: [facility], [address] [place] [address]., [address] Monocyte pct 6.4 % CERNER Comment: Interpretive Data Percent cell count reference ranges are not reported, since discordance with absolute values may lead to misinterpretation of CBC data. Current Interpretive Data was last revised on 2017. Testing performed by: [facility], [address] [place] [address]., [address] Eosinophil pct 3.6 % CERNER Comment: Interpretive Data Percent cell count reference ranges are not reported, since discordance with absolute values may lead to misinterpretation of CBC data. Current Interpretive Data was last revised on 2017. Testing performed by: [address] [address] Basophil pct 0.7 % CERNER Comment: Interpretive Data Percent cell count reference ranges are not reported, since discordance with absolute values may lead to misinterpretation of CBC data. Current Interpretive Data was last revised on 2017. Testing performed by: [address] [address] Blood 04/02/2025 2:23 PM CDT 04/02/2025 8:32 PM CDT us Braden Mckeon MD LAB BLOOD ORDERABLE S Final Result [facility]NA [address] Department [place] [address] * (ABNORMAL) CBC with auto differential (04/02/2025 2:23 PM CDT) [facility] WBC 8.50 3.80 - 9.90 K/cumm Comment:Testing performed by : [address], [address] Hgb 11.8(L) 13.0 - 17.5 g/dL CERNER CH Comment:Testing performed by : [address], [address] Hct 36.6(L) 38.9 - 50.3 % CERNER CH Comment:Testing performed by : [address], [address] Plt 232 150 - 400 K/cumm CERNER CH Comment:Testing performed by : [address], [address] MPV 10.2 9.1 - 12.3 fL CERNER CH Comment:Testing performed by : [address], [address] RBC 3.75(L) 4.30 - 5.80 M/cumm CERNER CH Comment:Testing performed by : [address], [address] MCV 97.6(H) 81.3 - 96.4 fL CERNER CH Comment:Testing performed by : [address], [address] MCH 31.5 27.1 - 33.3 pg CERNER CH Comment:Testing performed by : [address], [address] MCHC 32.2(L) 32.3 - 35.7 g/dL CERNER CH Comment:Testing performed by : [address], [address] RDW CV 14.1 11.1 - 14.9 % CERNER CH Comment:Testing performed by : [address], [address] RDW SD 50.2(H) 35.7 - 48.1 fL CERNER CH Comment:Testing performed by : [address] [place]., [address] NRBC abs 0.00 0.00 - 0.01 K/cumm LUNA Comment:Testing performed by : [address] [address] Blood 04/02/2025 2:23 PM CDT 04/02/2025 8:32 PM CDT Braden Mckeon MD LAB BLOOD ORDERABLE S Final Result Performing Organization Address [facility]/ZIP Co de Phone Number LUNA [address] Department [place] [address] * Albumin Creatinine Ratio, Urine (04/02/2025 2:23 PM CDT) Albumin Ur <12.0 mg/L Comment: Interpretive Data No reference range established. Current interpretive data was last revised 2019. Testing performed by: [address] [address] Creatinine Ur 23.2 mg/dL LUNA Comment: Interpretive Data No reference range established. Current interpretive data was last revised 2019. Testing performed by: [address] [address] Albumin Creatinine Ratio, Ur See Comment 1 - 29 LUNA Comment: Unable to calculate Testing performed by: [address] [address] Urine 04/02/2025 2:23 PM CDT 04/02/2025 8:32 PM CDT us Braden Mckeon MD LAB URINE ORDERABLE S Final Result Performing Organization Address City/[facility]/ZIP Co de Phone Number MARYPAM [address] [facility] [place] [address] * Protime-INR (04/02/2025 2:23 PM CDT) PT 11.1 10.2 - 13.5 sec Comment:Testing performed by : [address] [address] INR 0.98 0.90 - 1.20 LUNA Comment: Interpretive data Oral anticoagulant therapeutic ranges: Venous thromboembolism prophylaxis or treatment: 2.0-3.0 CARDIOLOGY Standard range: 2.0-3.0 High-intensity range: 2.5-3.5 Refer to indication-specific guidelines for appropriate target ranges for prosthetic heart valve replacement. Current interpretive data was last revised on 2019. Testing performed by: [facility], [address] [place] [address]., [address] Blood 04/02/2025 2:23 PM CDT 04/02/2025 8:39 PM CDT Braden Mckeon MD LAB BLOOD ORDERABLE S Final Result Performing Organization Address [facility] Co de Phone Number LUNA [address] [facility] [place] [place] [address] * Lipase (04/02/2025 2:23 PM CDT) Lipase 46 10 - 99 Units/L Comment:Testing performed by : [facility], [address] [place] [address]., [address] Blood 04/02/2025 2:23 PM CDT 04/02/2025 8:32 PM CDT Braden Mckeon MD LAB BLOOD ORDERABLE S Final Result Performing Organization Address [facility] Co de Phone Number [place] [phone] [facility] [place] [place] [address] * NATASHA ab ql w/rflx to NATASHA [...] last revised on 2020. Testing performed by: [facility], [address] [place]., [address] Blood 02/13/2025 2:47 PM CDT 02/14/2025 10:20 AM CDT Braden Mckeon MD LAB BLOOD ORDERABLE S Final Result Performing Organization Address City/[facility] Co de Phone Number [facility] [address] Department [place] [address] * (ABNORMAL) eGFR (02/13/2025 2:47 [...] was last reviewed 2021. Testing performed by: [facility], [address] [place] [address]., [address] Blood 02/13/2025 2:47 PM CDT 02/13/2025 8:04 PM CDT Braden Mckeon MD LAB BLOOD ORDERABLE S Final Result LUNA [address] Department [place] [address] * Differential, auto (02/13/2025 2:47 PM CDT) Neutrophil abs 5.99 1.50 - 6.50 K/cumm Comment:Testing performed by : [facility], [address] [place] [address]., [address] Imm gran abs 0.09 0.00 - 0.10 K/cumm CERNER Comment:Testing performed by : [facility], [address] [place] [address]., [address] Lymphocyte abs 2.11 0.80 - 3.30 K/cumm CERNER Comment:Testing performed by : [address] [address] Monocyte abs 0.55 0.20 - 0.80 K/cumm CERNER Comment:Testing performed by : [address] [address] Eosinophil abs 0.25 0.00 - 0.50 K/cumm CERNER Comment:Testing performed by : [address] [address] Basophil abs 0.06 0.00 - 0.10 K/cumm CERNER Comment:Testing performed by : [address] [address] Neutrophil pct 66.1 % CERNER Comment: Interpretive Data Percent cell count reference ranges are not reported, since discordance with absolute values may lead to misinterpretation of CBC data. Current Interpretive Data was last revised on 2017. Testing performed by: [address] [address] Imm gran pct 1.0 % CERNER Comment: Interpretive Data Percent cell count reference ranges are not reported, since discordance with absolute values may lead to misinterpretation of CBC data. Current Interpretive Data was last revised on 2017. Testing performed by: [address] [address] Lymphocyte pct 23.3 % CERNER Comment: Interpretive Data Percent cell count reference ranges are not reported, since discordance with absolute values may lead to misinterpretation of CBC data. Current Interpretive Data was last revised on 2017. Testing performed by: [facility], [address] [place] [address]., [address] Monocyte pct 6.1 % [facility] Comment: Interpretive Data Percent cell count reference ranges are not reported, since discordance with absolute values may lead to misinterpretation of CBC data. Current Interpretive Data was last revised on 2017. Testing performed by: [facility], [address] [place] [address]., [address] Eosinophil pct 2.8 % [facility] Comment: Interpretive Data Percent cell count reference ranges are not reported, since discordance with absolute values may lead to misinterpretation of CBC data. Current Interpretive Data was last revised on 2017. Testing performed by: [facility], [address] [place] [address]., [address] Basophil pct 0.7 % [facility] Comment: Interpretive Data Percent cell count reference ranges are not reported, since discordance with absolute values may lead to misinterpretation of CBC data. Current Interpretive Data was last revised on 2017. Testing performed by: [address] [address] Blood 02/13/2025 2:47 PM CDT 02/13/2025 7:34 PM CDT Braden Mckeon MD LAB BLOOD ORDERABLE S Final Result [facility] [address] [facility] Department [place] [address] * PSA screen (02/13/2025 2:47 PM CDT) [...] data last revised 21. Testing performed by: [address] [address] Blood 02/13/2025 2:47 PM CDT 02/13/2025 7:34 PM CDT Braden Mckeon MD LAB BLOOD ORDERABLE S Final Result [address] Department [place] [address] * (ABNORMAL) CBC with auto differential (02/13/2025 2:47 PM CDT) WBC 9.05 3.80 - 9.90 K/cumm Comment:Testing performed by : [address], [address] Hgb 12.8(L) 13.0 - 17.5 g/dL CERNER Comment:Testing performed by : [address], [address] Hct 39.9 38.9 - 50.3 % CERNER CH Comment:Testing performed by : [address], [address] Plt 242 150 - 400 K/cumm CERNER CH Comment:Testing performed by : [address], [address] MPV 10.2 9.1 - 12.3 fL CERNER CH Comment:Testing performed by : [address], [address] RBC 4.15(L) 4.30 - 5.80 M/cumm CERNER CH Comment:Testing performed by : [address], [address] MCV 96.1 81.3 - 96.4 fL CERNER CH Comment:Testing performed by : [address], [address] MCH 30.8 27.1 - 33.3 pg CERNER CH Comment:Testing performed by : [address], [address] MCHC 32.1(L) 32.3 - 35.7 g/dL CERNER Comment:Testing performed by : [facility], [address] [place] [address]., [address] RDW CV 13.8 11.1 - 14.9 % LUNA Comment:Testing performed by : [facility], [address] [place] [address], [address] RDW SD 48.8(H) 35.7 - 48.1 fL LUNA Comment:Testing performed by : [facility], [address] [place] [address], [address] NRBC abs 0.00 0.00 - 0.01 K/cumm LUNA Comment:Testing performed by : [facility], [address] [place] [address], [address] Blood 02/13/2025 2:47 PM CDT 02/13/2025 7:34 PM CDT Braden Mckeon MD LAB BLOOD ORDERABLE S Final Result Performing Organization Address City/[facility]/ZIP Co de Phone Number MARYPAM [place] [address] [address] * Cyclic citrul peptide antibody, IgG (02/13/2025 2:47 PM CDT) CCP Ab <0.5 <=2.9 units/mL Comment: Interpretive data Negative: <3 units/mL Positive: > or equal to 3 units/mL Current interpretive data was last revised on 2016. Testing performed by: [facility], [address] [place]., [address] Blood 02/13/2025 2:47 PM CDT 02/14/2025 10:22 AM CDT Braden Mckeon MD LAB BLOOD ORDERABLE S Final Result [facility] [place] [address] [place] [address] * (ABNORMAL) C-peptide (02/13/2025 2:47 PM CDT) Pathologist [facility] C-peptide 13.90(H) 1.10 - 4.40 ng/mL Comment:Testing performed by : [facility], [address] [place]., [address] Blood 02/13/2025 2:47 PM CDT 02/14/2025 10:21 AM CDT Braden Mckeon MD LAB BLOOD ORDERABLE S Final Result LUNA [address] [place] [address] * (ABNORMAL) Erythrocyte sedimentation rate (02/13/2025 2:47 PM CDT) [facility] Erythrocyte sedimentation rate 27(H) 1 - 20 mm/hr Comment:Testing performed by : [facility], [address] [place] [address], [id number] Blood 02/13/2025 2:47 PM CDT 02/13/2025 7:34 PM CDT Braden Mckeon MD LAB BLOOD ORDERABLE S Final Result Performing Organization Address [facility]/ZIP Co de Phone Number MARYPAM [address] [address] [place] [address] * CRP (acute phase) (02/13/2025 2:47 PM CDT) [facility] CRP 4.3 <=10.0 mg/L Comment:Testing performed by : [facility], [address] [place] [address]., [address] Blood 02/13/2025 2:47 PM CDT 02/13/2025 7:34 PM CDT Braden Mckeon MD LAB BLOOD ORDERABLE S Final Result MARYPAM [address] [address] Department [place] [address] * Uric acid (02/13/2025 2:47 PM CDT) Pathologist [facility] Uric acid 5.7 3.0 - 8.0 mg/dL Comment:Testing performed by : [address] [address] Blood 02/13/2025 2:47 PM CDT 02/13/2025 7:34 PM CDT Braden Mckeon MD LAB BLOOD ORDERABLE S Final Result Performing Organization Address [facility] Co de Phone Number [facility] [address] [facility] [place] [address] * TSH (02/13/2025 2:47 PM CDT) [facility] Thyroid Stimulating Hormone 2.50 0.30 - 4.20 mcIUnit/mL Comment:Testing performed by : [address], [address] Blood 02/13/2025 2:47 PM CDT 02/13/2025 7:34 PM CDT Braden Mckeon MD LAB BLOOD ORDERABLE S Final Result Performing Organization Address [facility] Co de Phone Number [facility] [address] [facility] [place] [address] * (ABNORMAL) Hemoglobin A1c (02/13/2025 2:47 PM CDT) [facility] Hgb A1C 12.6(H) 4.0 - 5.6 % Comment:Testing performed by : [address] [address] Estimated Average Glucose 315 mg/dL LUNA Comment: The ADA recommends reporting an estimated Average Glucose (eAG) with all Hemoglobin A1c results using the equation derived from a study of 507 normal and diabetic adults. Minority populations were underrepresented and children were not included. (Diabetes Care 31:9243-4126, 2008). The eAG is not equivalent to a fasting glucose. Testing performed by: [address] [address] Blood 02/13/2025 2:47 PM CDT 02/13/2025 7:34 PM CDT Braden Mckeon MD LAB BLOOD ORDERABLE S Final Result [facility] [address] [facility] Department of Laboratories [place], [place] [id number] * (ABNORMAL) Lipid panel (02/13/2025 2:47 PM [...] last revised on 2018. Testing performed by: [address] [address] Triglycerides 301(H) <=149 mg/dL LUNA UNDER[place]OD Comment: [...] last revised on 2018. Testing performed by: [address] [address] HDL 35(L) >=40 mg/dL LUNA Comment: Interpretive [...] last revised on 2018. Testing performed by: [facility], [address] [place] [address]., [address] LDL, calculated 162(H) <=129 mg/dL LUNA Comment: [...] NCEP Expert Panel. Circulation 2004;110:227 3. Fred Landa al. SILVIA Cardiol. 2019December 19;5(5):540-548. doi: 10.1001/jamacardio.2020.0013 Current Interpretive Data was last revised on 2024. Testing performed by: [facility], [address] [place] [address], [place]., [address] Non-HDL Cholesterol 219 mg/dL LUNA Comment: Interpretive [...] last revised on 2018. Testing performed by: [address] [address] Chol/HDL ratio 7 CERNER CH Comment:Testing performed by : [address] [address] Blood 02/13/2025 2:47 PM CDT 02/13/2025 7:34 PM CDT us Braden Mckeon MD LAB BLOOD ORDERABLE S Final Result [address] Department [place] [address] * (ABNORMAL) Comprehensive metabolic panel (02/13/2025 2:47 PM CDT) Sodium 137 135 - 145 mmol/L Comment:Testing performed by : [address] [address] Potassium, pl 5.0(H) 3.3 - 4.9 mmol/L CERNER CH Comment:Testing performed by : [address] [address] Chloride 99 97 - 110 mmol/L CERNER CH Comment:Testing performed by : [address] [address] CO2 23 22 - 32 mmol/L CERNER CH Comment:Testing performed by : [address] [address] Anion gap 15 2 - 15 mmol/L CERNER CH Comment:Testing performed by : [address] [address] BUN 53(H) 6 - 25 mg/dL CERNER CH Comment:Testing performed by : [address] [address] Creatinine 1.56(H) 0.80 - 1.30 mg/dL CERNER CH Comment:Testing performed by : [address] [address] Glucose 328(H) 70 - 199 mg/dL CERNER [...] was last revised 2022. Testing performed by: [facility], [address] [place] [address]., [address] Calcium 9.6 8.5 - 10.3 mg/dL CERNER CH Comment:Testing performed by : [address] [address] Bilirubin, total 0.3 0.1 - 1.2 mg/dL CERNER CH Comment:Testing performed by : [address] [address] Protein, pl 7.1 6.5 - 8.5 g/dL CERNER CH Comment:Testing performed by : [facility], [address] [place] [address]., [address] Albumin 4.1 3.5 - 5.0 g/dL CERNER CH Comment:Testing performed by : [address] [address] Alk phos 133(H) 40 - 130 Units/L CERNER CH Comment:Testing performed by : [address] [address] ALT 33 7 - 55 Units/L CERNER CH Comment:Testing performed by : [address] [address] AST 31 10 - 50 Units/L CERNER CH Comment:Testing performed by : [address] [address] Blood 02/13/2025 2:47 PM CDT 02/13/2025 7:34 PM CDT us Braden Mckeon MD LAB [place]LOOD [place] [address] [address] Department [place] [address] from Last 3 Months Insurance MEDICARE [facility] MEDICARE SUPPLEMENT Care Teams Branch Associate Teller Relationship Specialty Start Date End Date Braden Mckeon MD [address] [place] [address] MICHAELLE UNDERWOOD [address] PCP - General Family Practice 02/13/25
== END 2025-05-01 14:48 | disposition home or self-care (01) ==
PROVIDERS: PCP Family Medicine; Visit Provider Family Medicine
DX: R10.9 Unspecified abdominal pain (principal); R11.0 Nausea; K76.0 Fatty (change of) liver, not elsewhere classified; K40.20 Bilateral inguinal hernia, without obstruction or gangrene, not specified as recurrent
CPT/HCPCS: 74177; Q9967

== ENCOUNTER 2025-05-07 13:55 | Outpatient (CLI) | payer MEDICARE, BC, SELFPAY ==
--- OUTSIDE RECORDS SUMMARY | 2014-04-18 05:51 | XMS_ITS | Continuity of Care Document ---
Author Organization [facility] ners Address [address] [place] [phone] Phone Care Team Providers Care Dental Laboratory Technician Name Role Phone Thomas Cowan MD Unavailable Unavailable Allergies, Adverse Reactions, Alerts Substance Reaction Status Criticality No Known allergies Medications Medication Instructions Dosage Effective Dates (start - stop) Status Comments hydrocodone 5 mg-acetaminophen 325 mg tablet take 1 tablet by oral route every 6 hours as needed for pain 1.00 tablet - Active Restoril 15 mg capsule take 1 capsule by oral route every day at bedtime as needed 15 MG - Active Colcrys 0.6 mg tablet take 1 tablet by oral route every day 0.6 MG - Active hydrochlorothiazide 12.5 mg capsule take 2 capsule by oral route every day 25 MG - Active Lasix 80 mg tablet take 1 tablet by oral route every day 80 MG - Active AndroGel 1.25 gram/actuation (1%) transdermal gel pump apply (5G) by topical route every day to clean dry skin of shoulder and upper arm and/or abdomen - Active Advance Directives Directive Yes / No Effective Date File Name No Information Encounters Encounter Description Practice Location Reason(s) For Visit Diagnoses Date Provider [facility], [address] [place] [address], [id number], tel:[phone] [facility] 350 No Information 2013 Chapo Guzman. [address], [place], [id number], [place]. tel:[phone] [facility], [address] [place], [place], [id number], [place] tel:[phone] [facility] No Information 2013 [address]man. [address], [id number], [place]. tel:[phone] [facility], [address] [place], [place], [id number], tel:[phone] [facility] No Information 2013 Chap[address] Guzman. [address] [place], [place], [id number], [place]. tel:[phone] [facility], [address] [place], [place], [id number], tel:[phone] [facility] Myopia 2013 Mauriz[address] Flores. [address], [place], [id number], . tel:[phone] Family History Family Member Type Diagnosis Age At Onset Multiple Problem (finding) Cancer Aunt Problem (finding) glaucoma Payers Payer name Insurance type Covered constitution party ID Authoriza tion(s) No Information Social History Type Description Quantity Date Captured Comments Sex Male Smoking Status No Information Chief Complaint And Reason For Visit No Information History Of Present Illness Encounter Date Complaint History Of Prese nt Illness No Information Instructions Date Instruction Additional Infor nay Myopia, OD - Recomme nd W[place]ight Laser Procedure. This will be the patient's primary refractive surgery OD with an Aim of [place]. He has had PRK OS and would like to get OD corrected for distance. He knows he will need readers. Pt. ed. on cataract formation in the future OU and need for futher surgery. Pt. ed. on RLE option. He would like to proceed with PRK OD to match OS. Pt is not eligible for the Vision for Life plan. Related to Myopia Assessments Type Assessment Date No Information
--- OUTSIDE RECORDS SUMMARY | 2021-07-07 03:55 | XMS_ITS | Continuity of Care Document ---
Author Organization [facility] Address [address] [place] [address] Phone Care Team Providers Care Curing Machine Operator Name Role Phone Unavailable Unavailable Unavailable Allergies, Adverse Reactions, Alerts Substance Reaction Status Criticality No Known Allergies Active No Inform ation Medications Medication Instructions Dosage Effective Dates (start - stop) Status Comments spironolactone 25 mg tablet take 1 tablet by oral route every day 25 MG - Active glyburide 5 mg tablet take 2 tablet by O RAL route 2 times every day before meals 10 MG - Active gabapentin 300 mg capsule take 1 capsule by oral route 3 times every day 300 MG - Active Adderall XR 10 mg capsule,extended release take 1 capsule by oral route every day in the morning upon awakening 10 MG - Active bumetanide 2 mg tablet take 1 tablet by oral route every day 2 MG - Active allopurinol 300 mg tablet take 1 tablet by oral route every day 300 MG - Active Advance Directives Directive Yes / No Effective Date File Name No Information Encounters Encounter Description Practice Location Reason(s) For Visit Diagnoses Date Provider [facility], [address], [place], [place], [id number], [place] tel:[phone] [facility] No Information No Information [facility], [address], [place], [place], [id number], [place] tel:[phone] [facility] COVID-19 (chief complaint) Encounter for screening laboratory testing for COVID-19 virus Call [address], [place], [place], [id number], [place]. tel:[phone] [facility], [address], [place], [place], [id number], [place] tel:[phone] [facility] COVID19 vaccine (chief complaint) No Information 1 Nurse RN. [address], [place], [address], [place]. [facility], [address], [place], [place], [id number], [place] tel:[phone] [facility] COVID Vaccine (chief complaint) No Information 1 Nurse RN. [address], [place], [address], [place]. [facility], [address], [place], [place], [id number], [place] tel:[phone] [place] [address] Urgent Care No Information 0 Leon Tian. [address], [place], [place], [id number], [place]. tel:[phone] [facility], [address], [place], [place], [id number], [place] tel:[phone] [facility] disability (chief complaint) Dietary counseling and surveillanceEncounter for screening, unspecified 9 Nurse RN. [address], [place], [address], [place]. [facility], [address], [place], [place], [id number], [place] tel:[phone] [facility] Physical Exam (chief complaint) Encounter for screening, unspecifiedEncounter for CDL (commercial driving license) exam 8 No Information [facility], [address], [place], [place], [id number], [place] tel:[phone] [facility] Urine Drug Screen (chief complaint) No Information 7 Nurse RN. [address], [place], [address], [place]. 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 [address], [place], [place], [id number], [place]. tel:[phone] [place] [address], [address], [place], [place], [id number], [place] tel:[phone] [facility] No Information 2 Liyah Aaron. [address], [place], [place], [id number], [place]. tel:[phone] [facility], [address], [place], [place], [id number], [place] tel:[phone] [facility] No Information 2 Nurse RN. [address], [place], [address], [place]. [facility], [address], [place], [place], [id number], [place] tel:[phone] [facility] CDL Physical (chief complaint) Routine Medical ExamObesity 2 No Information [facility], [address], [place], [place], [id number], [place] tel:[phone] [facility] No Information 1 Liyah Aaron. [address], [place], [place], [id number], [place]. tel:[phone] [place] [address], [address], [place], [place], [id number], [place] tel:[phone] [facility] No Information Liyah Walker. [address], [place], [place], [id number], [place]. tel:[phone] [facility], [address], [place], [place], [id number], [place] tel:[phone] [facility] No Information 0 Liyah Walker. [address], [place], [place], [id number], [place]. tel:[phone] Family History Family Member Type Diagnosis Age At Onset No Information Immunizations Vaccine Date Status Comments SARS, COVID-19 (MODERNA), mRNA administered Source: New Immuniza tion Record SARS, COVID-19 (MODERNA), mRNA administered Source: New Immuniza tion Record FLU QUAD administered Source: Other R egistry FLU QUAD administered Source: Other R egistry FLU QUAD administered Source: Other R egistry Payers Payer name Insurance type Covered republican ID Authoriza tion(s) [employer] CI [id number] [employer] CI [id number] [employer] CI [id number] Social History Type Description Quantity Date Captured Comments Alcohol Use Details Unknown Caffeine Use Details Unknown Tobacco Use Status No Information Smoking Status No Information Sex Male Sexual Orientation Straight or heterosexual Gender Identity Male Chief Complaint And Reason For Visit No Information Plan Of Treatment Date Type Action Status Goal Colonoscopy. Due on 021 due Goal Cologuard CRCA DNA Test. Due on due Goal Td vaccine. Due on 21 due Goal HIV screen. Due on due Goal Hep C Screening. Due on due Goal Depression Screening. Due on due Goal Health Promotion Plan. Due o n due Goal FIT-DNA. Due on due Goal FIT. Due on due Goal Tdap. Due on due Goal Zoster vaccine (). Due on due Goal CT-Colonography. Due on due Goal Lipid panel. Due on due Goal Flu-Quad 3 yrs and older. Du e on due Goal SBIRT. Due on du e Goal Colonoscopy. Due on due Goal Td vaccine. Due on due Goal Flu-Quad 3 yrs and older. Du e on due Goal Health Promotion Plan. Due o n due Goal FIT. Due on due Goal Lipid panel. Due on due Goal Zoster vaccine (). Due on due Goal Hep C Screening. Due on due Goal Tdap. Due on due Goal HIV screen. Due on due Goal FIT-DNA. Due on due Goal SBIRT. Due on du e Goal CT-Colonography. Due on due Goal Cologuard CRCA DNA Test. Due on due Goal Depression Screening. Due on due Goal Tdap. Due on due Goal Depression Screening. Due on due Goal SBIRT. Due on du e Goal Lipid panel. Due on due Goal Hep C Screening. Due on due Goal Flu-Quad 3 yrs and older. Du e on due Goal FIT Occult Blood, Fecal, [place]. Due on due Goal Td vaccine. Due on due Goal Colonoscopy. Due on due Goal Zoster vaccine (). Due on due Goal HIV screen. Due on due Goal Health Promotion Plan. Due o n due Goal Cologuard CRCA DNA Test. Due on due Goal Cologuard CRCA DNA Test. Due on due Goal Tdap. Due on due Goal Td vaccine. Due on due Goal Health Promotion Plan. Due o n due Goal SBIRT. Due on du e Goal Zoster vaccine (). Due on due Goal HIV screen. Due on due Goal Colonoscopy. Due on due Goal Flu-Quad 3 yrs and older. Du e on due Goal Hep C Screening. Due on due Goal FIT Occult Blood, Fecal, [place]. Due on due Goal Depression Screening. Due on due Goal Lipid panel. Due on due Goal Lipid panel. Due on due Goal Depression Screening. Due on due Goal FIT Occult Blood, Fecal, [place]. Due on due Goal SBIRT. Due on du e Goal Flu-Quad 3 yrs and older. Du e on due Goal Colonoscopy. Due on due Goal Health Promotion Plan. Due o n due Goal Dietary management education , guidance, and counseling completed History Of Present Illness Encounter Date Complaint History Of Prese nt Illness COVID-19 Screening:Curren t fever: No.Current cough: Yes.Exposure to person with lab confirmed positive COVID-19: Yes.Travel during past two weeks: No.Difficulty breathing: Yes.Healthcare worker or surgical first assistant: No.Senior Living or Link Trainer Maintenance Worker Care facility: No.Age over 65: No.Underlying illnesses or risks: Yes.Additional Risks: History of heart disease (CHF/Cardiomyopathy).Additional Info: Pt was exposed to COVID 7 days ago, 5 days ago he started having chest congestion, productive cough, [place], nausea, dizziness and fatigue. He feels like he is SOB with activity. COVID19 vaccine COVID Vaccine disability Here for Disabil ity sent by Dr George discussed with him I no longer do disablity physicals and have not fro about 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 Pt does not have documentation of Echo/Holter Monitor, or Normal PFT. Notes reviewed from [facility] Clinical specialty, Cardiology and pulmonology for upcoming surgery and can not be used for DOT purposes to clear pt to drive. 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
--- OUTSIDE RECORDS SUMMARY | 2023-11-03 07:20 | XMS_ITS | Continuity of Care Document ---
Author Organization [facility] Address [address] [place] [address] Phone Care Team Providers Care Head Concierge Name Role Phone Yoel Anguiano MD Unavailable Unavailable Allergies, Adverse Reactions, Alerts Substance Reaction Status Criticality No Known Allergies Active No Inform ation Medications Medication Instructions Dosage Effective Dates (start - stop) Status Comments ALLOPURINOL (unknown strength) Not Available - Active GABAPENTIN (unknown strength) Not Available - Active ASPIRIN (unknown strength) Not Available - Active LEVOTHYROXINE SODIUM (unknown strength) Not Available - Active SPIRONOLACTONE (unknown strength) Not Available - Active GLIMEPIRIDE (unknown strength) Not Available - Active VITAMIN C (unknown strength) Not Available - Active COTEMPLA XR-ODT (unknown strength) Not Available - Active BUMETANIDE (unknown strength) Not Available - Active ACETAMINOPHEN (unknown strength) Not Available - Active DULOXETINE HCL (unknown strength) Not Available - Active Procedures Procedure Date CPTR OPHTH DX IMG POST [facility] EYE EXAM & TREATMENT CPTR OPHTH DX IMG POST [facility] EYE EXAM, NEW PATIENT Advance Directives Directive Yes / No Effective Date File Name No Information Encounters Encounter Description Practice Location Reason(s) For Visit Diagnoses Date Provider Providers Copied on Encounter [facility], [address], [place], [place], [id number], [place] tel:[phone] [place] Office follow-up (chief complaint) Nonexudative age-related macular degeneration, bilateral, early dry stageCombined forms of age-related cataract, bilateral 4 Lord Yoel Odonnell [address], [address], [place], [place], [id number], [place]. tel:[phone] Referring Provider: Thomas Thomason [address], [place], [address] . tel:[phone] [facility], [address], [place], [place], [address], tel:[phone] [facility] Office the retina (chief complaint) Nonexudative age-related macular degeneration, bilateral, early dry stageCombined forms of age-related cataract, bilateral 3 Lord Yoel Odonnell [address], [address], [place], [place], [id number], [place]. tel:[phone] Referring Provider: Thomas Thomason [address], [place], [address] . tel:[phone] Family History Family Member Type Diagnosis Age At Onset Problem Family history of degenerati ve disorder of macula Daughter Problem malignant neopla sm of breast in first degree relative Mother Problem malignant neopla sm of breast in first degree relative Problem Family history of glaucoma Payers Payer name Insurance type Covered alliance party ID Authoriza tion(s) Medicare [place] MB [id number] [facility] [id number] Social History Type Description Quantity Date Captured Comments Alcohol Use Details No Caffeine Use Details coffee 1 cup per day Tobacco Use Status Ex-cigarette smoker 024 Smoking Status Former smoker Smoking Tobacco Use Details Cigarette: Age Stopped: 31 Cigarette: No Details Available Sex Male Vital Signs Date / Time: Height Weight BMI Pulse Rate Blood Pressure Temperature Respiratory Rate Body Surface Area Head Circumference Head Circ. Percentile Wt./[place]. Percentile BMI percentile Pulse Ox Inhaled Ox 2:00 PM 72.00 in 124.738 kg (275.00 lbs) 37.3 0 kg/m eter (2) 71 /min 111/74 mm[Hg] Chief Complaint And Reason For Visit From encounter dated '11/03/2023 12:20'. follow-up (chief complaint). Description: The 67 year old male presents for a follow-up in the right eye and left eye for dry AMD, and age related cataracts. He denies any flashes, or pain. He stated, I have noticed that I can't see very well in the dark. I don't drive at night anymore because of that. I do have some floaters as well in my vision, but they don't tend to bug me. He is not taking any eye vitamins or gtts. His couldn't remember what his BSL was, and A1C about 3 weeks ago was 8.1%. Reason For Referral Reason For Referral No Information Plan Of Treatment Date Type Action Status Patient Education Health Informa tion for You: [employer] completed Patient Education Health Informa tion for You: [employer] completed History Of Present Illness Encounter Date Complaint History Of Prese nt Illness follow-up The 67 year old male presents for a follow-up in the right eye and left eye for dry AMD, and age related cataracts. He denies any flashes, or pain. He stated, I have noticed that I can't see very well in the dark. I don't drive at night anymore because of that. I do have some floaters as well in my vision, but they don't tend to bug me. He is not taking any eye vitamins or gtts. His couldn't remember what his BSL was, and A1C about 3 weeks ago was 8.1%. the retina The 67 year old male presents for evaluation of the retina in the right eye and left eye for a cataract evaluation referred by Dr. Kulkarni. He states, I have both flashes and floaters in both my eyes. I also get occasional pain in my eyes OS>OD. Dr. Kulkarni had also mentioned I have early stages of macular degeneration. He has had LASIK OU. He is not using any eye gtts malachi or taking any eye vitamin. He did not check his BSL and his most recent A1c was around 7 , about 5 months ago. Functional Status Date Functional Assessmen t No Information Instructions Date Instruction Additional Infor mation Impression/Plan Related to Combi fabiana forms of age-related cataract, bilateral Impression/Plan Related to Nonex udative age-related macular degeneration, bilateral, early dry stage 9-12 mo FU IOL/OCT OU Related to Nonexudative age-related macular degeneration, bilateral, early dry stage Impression/Plan Related to Nonex udative age-related macular degeneration, bilateral, early dry stage Impression/Plan Related to Combi fabiana forms of age-related cataract, bilateral Assessments Type Assessment Date assessment Nonexudative age-rel ated macular degeneration, bilateral, early dry stage impression Nonexudative age-rel ated macular degeneration, bilateral, early dry stage: H35.3131. Bilateral. assessment Combined forms of age-related ca taract, bilateral impression Combined forms of ag e-related cataract, bilateral: H25.813. Bilateral. Patient Care Teams Name Effective Dates (start - stop) Status Members No Information
--- NOTE | ~2025-05-07 | US_ITS ---
US art doppler w press LE BI INDICATION: Peripheral vascular disease TECHNIQUE: Segmental pressures and plethysmographic and Doppler waveforms of the brachial and lower extremity arteries were obtained. COMPARISON: None. FINDINGS: Right and left brachial artery pressures of 120 mm Hg and 112 mm Hg, respectively, are concordant (normal difference <= 30 mmHg). The right ankle-brachial index (LORNA) is 1.18 (normal >= 0.9-1.0). The right great toe-brachial index (TBI) is 0.88 (normal >= 0.60). The left LORNA is 1.06. The left TBI is 0.77. There is triphasic flow in the lower extremity arteries bilaterally. IMPRESSION: 1. Normal bilateral lower extremity arterial Doppler study. Reviewed, dictated and finalized at location O.
--- OUTSIDE RECORDS SUMMARY | 2025-05-07 14:38 | XMS_ITS | Patient Health Record ---
Author Organization [facility] [employer] [facility] Address [address] [place] [address] Support Name Relationship Address Phone Mariaelena Poon Emergency Contact [address] [place] [address] Norris Poon Guarantor Unknown Reason For Referral [...] Problem Status W/U Status Risk Notes Problem 23769778 Cramps, muscle, general (R25.2) Active confirmed Problem 614305111 Iron deficiency anemia due to chronic blood loss (D50.0) Active confirmed Problem 91340194 Hypogonadism in male (E29.1) Active confirmed Problem 25330642 Fatigue, unspecified type (R53.83) Active confirmed Problem 394687307 Hx of malignant neoplasm of prostate (Z85.46) Active confirmed Problem 472588483 Abnormal endocrine laboratory test finding (R68.89) Active confirmed Plan Of Treatment Pending Test Test Name Order Date CMP Comprehensive Metabolic Panel ([facility]) 33051 01/23/2019 T4, Free [place] [facility] 63798 01/23/2019 LH, Luteinizing Hormone ([facility] [address]67 12/2018 Magnesium (GM), 70589 01/23/2019 TSH ([facility]), [address]687 01/23/2019 Cortisol, Random (Serum) 01/23/2019 DHEA Sulfate, Serum by ECLIA 01/23/2019 ACTH (Adrenocorticotropic Horm), Plasma 01/23/2019 Insulin Like Growth Factor 1 (IGF1) 12/2018 Prolactin 01/23/2019 Reticulocyte Count, Automated 01/23/2019 Testosterone, Total ([facility]), [address] 019 Iron and TIBC ([facility] only) 01/23/2019 21 Hydroxylase Antibody 01/23/2019 CBC with Auto Diff ([facility]) 01/23/2019 Insurance Providers Payer Name Payer Address Payer Phone Subscriber Number Group Number Insured Name Patient Relationship to Insured Coverage Start Date Coverage End Date [facility] [address] JAYSON FERNANDEZ [phone] [id number] Norris Paz Self - patient is the [...]
--- OUTSIDE RECORDS SUMMARY | 2025-05-07 14:38 | XMS_ITS | Encounter Summary ---
Author Organization [facility] Healthcare Address [address] [place] [address] Care Team Providers Care Pot Reliner Name Role Phone Braden Mckeon MD Primary Care [facility] Encounter Details Date Type Department Care Team (Late st Contact Info) Description 05/06/2025 Telephone [facility] Medical Group Primary Care at [address] [place] [address] Braden Mckeon MD [address] [facility] [address] [place] [address] Social History Tobacco Use Types Packs/Day Years [...] on file 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 Patient stated he was going to call them and find out why we haven't received results. documented in this encounter Plan of Treatment Not on file documented as of this encounter Visit Diagnoses Not on filedocumented in this encounter Care Teams Pot Reliner Relationship Specialty Start Date End Date Braden Mckeon MD [address] [address] PCP - General Family Practice 02/13/25 documented as of this encounter
--- OUTSIDE RECORDS SUMMARY | 2025-05-07 14:38 | XMS_ITS | Patient Health Record ---
Author Organization [facility] Address [address] [facility] [address] [place] [address] Care Team Providers Care Overedge Sewer Name Role Phone Norris Ayala Unavailable [phone] Kameron Lopez PA-C Unavailable Unavailable Reason For [...] Risk Notes Problem Malignant neoplasm of prostate (541673654) Malignant neoplasm of prostate (C61) 04/25/20 14 Active confirmed [id number] 838- Problem Erectile dysfunction following radical prostatectomy (190783217950396) Erectile dysfunction following radical prostatectomy (N52.31) 01/02/20 15 Active confirmed [id number] [id number]- Problem Postprocedural membranous urethral stricture (962059132730301) 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) 10/20/19 17 Active confirmed [id number] 838- Problem Gross hematuria (760260655) Gross hematuria (R31.0) 10/20/19 17 Active confirmed [id number] 838- Problem Frequency of micturition (206405723) Frequency of micturition (R35.0) 10/28/19 17 Active confirmed [id number] 838- Problem Nodular prostate w/ urinary obstruction (600.11) 04/03/20 14 Active confirmed [id number] 838- Problem Elevated PSA (226806097) Elevated PSA (790.93) 04/03/20 14 Problem resolved confirmed [id number] 838- Plan Of Treatment Pending Test Test Name Order Date Urinalysis 02/24/2020 Insurance Providers Payer Name Payer Address Payer Phone Subscriber Number Group Number Insured Name Patient Relationship to Insured Coverage Start Date Coverage End Date Medicare [address] [place] [address] [id number] Norris Paz Self - patient is the insured [facility] and [facility] [address] [place], [place] [phone] [id number] Norris Paz Self - patient is the insured Medical (General) History Medical History History ICD Code CHF PHA type 2 diabetes kidney disease Surgical History Surgery Date(Month/Year) prostatectomy
--- OUTSIDE RECORDS SUMMARY | 2025-05-07 14:38 | XMS_ITS | Encounter Summary ---
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
--- OUTSIDE RECORDS SUMMARY | 2025-05-07 14:39 | XMS_ITS | Clinical Summary ---
Author Organization [facility] Address [address] [place] [address] Care Team Providers Care Screen Tender Helper Name Role Phone Braden Mckeon MD Primary [...] 180 tablet 1 5 08/17/20 25 Active Ventolin HFA 90 mcg/actuation inhaler INHALE 2 PUFFS BY MOUTH EVERY 6 HOURS FOR 7 DAYS NEEDED FOR WHEEZING 5 Active rOPINIRole (REQUIP) 2 mg tablet Take 2 tablets (4 mg total) by mouth 2 (two) times a day 5 Active verapamiL (CALAN) 40 mg tablet Take 1 tablet (40 mg total) by mouth 2 (two) times a day [address] (CYMBALTA) 30 mg capsule Take 1 capsule (30 mg total) by mouth daily 90 capsule 1 5 08/30/19 26 Active levothyroxine (SYNTHROID) 25 mcg tablet Take 1 tablet (25 mcg total) by mouth 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 before breakfast 90 tablet 1 5 08/30/19 26 Active indomethacin (INDOCIN) 50 mg capsule Take 1 capsule (50 mg total) by mouth 3 (three) times a day with meals 270 capsule 1 5 09/23/19 26 Active dextroamphetamine- amphetamine (ADDERALL) 20 mg tablet Take 1 tablet (20 mg total) by mouth 2 (two) times a day 60 tablet [address] (PROTONIX) 40 mg EC tabletIndications: Abdominal pain Take 1 tablet (40 mg total) by mouth daily 90 tablet 1 5 09/29/19 26 Active Active Problems Problem Noted Date Diagnosed Date [...] Encounters Date Type Department Care Team Description 05/06/2025 Telephone [facility] Primary [facility] at [address] [phone] Braden Mckeon MD 04/03/2025 Telephone [facility] Primary [facility] at [address] [phone] Braden Mckeon MD 04/03/2025 Results Follow-Up [facility] Primary [facility] at [address] [phone] Braedn Mckeon MD Albumin Creatinine Ratio, Urine, CBC with auto differential, Protime-INR, Additional followed-up results: 2 04/03/2025 Telephone [facility] Primary [facility] at [address] [phone] Braden Mckeon MD 04/02/2025 2:30 PM CDT Lab [facility] - Outpatient Center at [address] [id number] Type 2 diabetes mellitus without complication, without long-term current use of insulin (HCC); Easy bruisability; Abdominal pain 04/02/2025 1:45 PM CDT Office Visit [facility] Primary [facility] at [address] [phone] Braden Mckeon MD Class 2 severe obesity due to excess calories with serious comorbidity and body mass index (BMI) of 38.0 to 38.9 in adult (HCC) (Primary Dx); Type 2 diabetes mellitus without complication, without long-term current use of insulin (HCC); Abdominal pain; Nausea; Chronic fatigue syndrome; Easy bruisability; Fatty liver disease, nonalcoholic 03/27/2025 Orders Only [facility] Primary [facility] at [address] [phone] Braden Mckeon MD 03/03/2025 Telephone [facility] Primary [facility] at [address] [phone] Braden Mckeon MD Med Refill 02/16/2025 Results Follow-Up [facility] Primary [facility] at [address] [phone] Braden Mckeon MD PSA screen, Lipid panel, CBC with auto differential, Additional followed-up results: 11 02/13/2025 2:40 PM CDT Lab [facility] - Outpatient Center at [place] [phone] Screening PSA (prostate specific antigen); Type 2 diabetes mellitus without complication, without long-term current use of insulin (HCC); Inflammatory arthritis; Chronic gout without tophus, unspecified cause, unspecified site 02/13/2025 2:00 PM CDT Office Visit [facility] Primary [facility] at [address] [phone] Braden Mckeon MD Type 2 diabetes mellitus [...] on file Legal Sex Male 4:50 PM [employer]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 [employer] Gender Identity Not on file Sexual Orientation [...] complication, without long-term current use of insulin ([facility]) EGFR Routine 02/13/2025 2:47 PM CDT Type 2 diabetes mellitus without complication, without long-term current use of insulin ([facility]) DIFFERENTIAL AUTO Routine 02/13/2025 2:4 7 PM [...] complication, without long-term current use of insulin ([facility]) C-PEPTIDE Routine 02/13/2025 2:47 PM CDT Type 2 diabetes mellitus without complication, without long-term current use of insulin ([facility]) URIC ACID Routine 02/13/2025 2:47 PM CDT [...] (ABNORMAL) Differential, auto (04/02/2025 2:23 PM CDT) Neutrophil abs 5.61 1.50 - 6.50 K/cumm Comment:Testing performed by : [address] [address] Imm gran abs 0.11(H) 0.00 - 0.10 K/cumm CERNER Comment:Testing performed by : [address] [address] Lymphocyte abs 1.87 0.80 - 3.30 K/cumm CERNER CH Comment:Testing performed by : [address] [address] Monocyte abs 0.54 0.20 - 0.80 K/cumm CERNER Comment:Testing performed by : [address] [address] Eosinophil abs 0.31 0.00 - 0.50 K/cumm CERNER CH Comment:Testing performed by : [address] [address] Basophil abs 0.06 0.00 - 0.10 K/cumm CERNER CH Comment:Testing performed by : [address], [address] Neutrophil pct 66.0 % CERNER Comment: Interpretive Data Percent cell count reference ranges are not reported, since discordance with absolute values may lead to misinterpretation of CBC data. Current Interpretive Data was last revised on 2017. Testing performed by: [facility], [address] [place] [address]., [address] Imm gran pct 1.3 % CERNER Comment: Interpretive Data Percent cell count reference ranges are not reported, since discordance with absolute values may lead to misinterpretation of CBC data. Current Interpretive Data was last revised on 2017. Testing performed by: [address], [address] Lymphocyte pct 22.0 % CERNER Comment: Interpretive Data Percent cell count reference ranges are not reported, since discordance with absolute values may lead to misinterpretation of CBC data. Current Interpretive Data was last revised on 2017. Testing performed by: [facility], [address] [place] [address]., [address] Monocyte pct 6.4 % CERNER Comment: Interpretive Data Percent cell count reference ranges are not reported, since discordance with absolute values may lead to misinterpretation of CBC data. Current Interpretive Data was last revised on 2017. Testing performed by: [facility], [address] [place] [address]., [address] Eosinophil pct 3.6 % CERNER Comment: Interpretive Data Percent cell count reference ranges are not reported, since discordance with absolute values may lead to misinterpretation of CBC data. Current Interpretive Data was last revised on 2017. Testing performed by: [address] [address] Basophil pct 0.7 % CERNER Comment: Interpretive Data Percent cell count reference ranges are not reported, since discordance with absolute values may lead to misinterpretation of CBC data. Current Interpretive Data was last revised on 2017. Testing performed by: [address], [address] Blood 04/02/2025 2:23 PM CDT 04/02/2025 8:32 PM CDT us Braden Mckeon MD LAB BLOOD ORDERABLE S Final Result [address] Department [place] [address] * (ABNORMAL) CBC with auto differential (04/02/2025 2:23 PM CDT) [facility] WBC 8.50 3.80 - 9.90 K/cumm Comment:Testing performed by : [address], [address] Hgb 11.8(L) 13.0 - 17.5 g/dL CERNER Comment:Testing performed by : [address], [address] Hct 36.6(L) 38.9 - 50.3 % CERNER Comment:Testing performed by : [address], [address] Plt 232 150 - 400 K/cumm CERNER CH Comment:Testing performed by : [address], [address] MPV 10.2 9.1 - 12.3 fL CERNER CH Comment:Testing performed by : [address], [address] RBC 3.75(L) 4.30 - 5.80 M/cumm CERNER CH Comment:Testing performed by : [address], [address] MCV 97.6(H) 81.3 - 96.4 fL CERNER CH Comment:Testing performed by : [address], [address] MCH 31.5 27.1 - 33.3 pg CERNER CH Comment:Testing performed by : [address], [address] MCHC 32.2(L) 32.3 - 35.7 g/dL CERNER CH Comment:Testing performed by : [address], [address] RDW CV 14.1 11.1 - 14.9 % CERNER CH Comment:Testing performed by : [address], [address] RDW SD 50.2(H) 35.7 - 48.1 fL CERNER CH Comment:Testing performed by : [address] [address] NRBC abs 0.00 0.00 - 0.01 K/cumm LUNA Comment:Testing performed by : [address] [address] Blood 04/02/2025 2:23 PM CDT 04/02/2025 8:32 PM CDT Braden Mckeon MD LAB BLOOD ORDERABLE S Final Result Performing Organization Address [facility]/[place] Co de Phone Number LUNA [address] [facility] [place] Department [employer] [place] [address] * Albumin Creatinine Ratio, Urine (04/02/2025 2:23 PM CDT) Albumin Ur <12.0 mg/L Comment: Interpretive Data No reference range established. Current interpretive data was last revised 2019. Testing performed by: [address] [address] Creatinine Ur 23.2 mg/dL LUNA Comment: Interpretive Data No reference range established. Current interpretive data was last revised 2019. Testing performed by: [address] [address] Albumin Creatinine Ratio, Ur See Comment 1 - 29 LUNA Comment: Unable to calculate Testing performed by: [address] [address] Urine 04/02/2025 2:23 PM CDT 04/02/2025 8:32 PM CDT Braden Mckeon MD LAB URINE ORDERABLE S Final Result Performing Organization Address [facility]/ZIP Co de Phone Number MARYPAM [address] [facility] [place] Department [place] [address] * Protime-INR (04/02/2025 2:23 PM CDT) PT 11.1 10.2 - 13.5 sec Comment:Testing performed by : [address] [address] INR 0.98 0.90 - 1.20 [facility] Comment: Interpretive data Oral anticoagulant therapeutic ranges: Venous thromboembolism prophylaxis or treatment: 2.0-3.0 CARDIOLOGY Standard range: 2.0-3.0 High-intensity range: 2.5-3.5 Refer to indication-specific guidelines for appropriate target ranges for prosthetic heart valve replacement. Current interpretive data was last revised on 2019. Testing performed by: [facility], [address] [place] [address]., [address] Blood 04/02/2025 2:23 PM CDT 04/02/2025 8:39 PM CDT Braden Mckeon MD LAB BLOOD ORDERABLE S Final Result Performing Organization Address [facility]/[place] Co de Phone Number LUNA [address] [facility] [place] [address] * Lipase (04/02/2025 2:23 PM CDT) Pathologist [facility] Lipase 46 10 - 99 Units/L Comment:Testing performed by : [facility], [address] [place] [address]., [address] Blood 04/02/2025 2:23 PM CDT 04/02/2025 8:32 PM CDT Braden Mckeon MD LAB BLOOD ORDERABLE S Final Result Performing Organization Address [facility] Co de Phone Number [facility] [address] [facility] [place] [address] * NATASHA ab ql w/rflx to NATASHA qn (02/13/2025 2:47 PM CDT) Pathologist [facility] NATASHA Negative Comment: Interpretive Data Normal range [...] last revised on 2020. Testing performed by: [facility], [address] [place]., [address] Blood 02/13/2025 2:47 PM CDT 02/14/2025 10:20 AM CDT Braden Mckeon MD LAB BLOOD ORDERABLE S Final Result Performing Organization Address [facility]/[place] Co de Phone Number MARYPAM [address] Department [place] [address] * (ABNORMAL) eGFR (02/13/2025 2:47 [...] was last reviewed 2021. Testing performed by: [facility], [address] [place] [address]., [address] Blood 02/13/2025 2:47 PM CDT 02/13/2025 8:04 PM CDT Braden Mckeon MD LAB BLOOD ORDERABLE S Final Result LUNA [address] Department [place] [address] * Differential, auto (02/13/2025 2:47 PM CDT) Neutrophil abs 5.99 1.50 - 6.50 K/cumm Comment:Testing performed by : [facility], [address] [place] [address]., [address] Imm gran abs 0.09 0.00 - 0.10 K/cumm CERNER Comment:Testing performed by : [facility], [address] [place] [address]., [address] Lymphocyte abs 2.11 0.80 - 3.30 K/cumm CERNER Comment:Testing performed by : [address] [address] Monocyte abs 0.55 0.20 - 0.80 K/cumm CERNER Comment:Testing performed by : [address] [address] Eosinophil abs 0.25 0.00 - 0.50 K/cumm CERNER Comment:Testing performed by : [address] [address] Basophil abs 0.06 0.00 - 0.10 K/cumm CERNER Comment:Testing performed by : [address] [address] Neutrophil pct 66.1 % CERNER Comment: Interpretive Data Percent cell count reference ranges are not reported, since discordance with absolute values may lead to misinterpretation of CBC data. Current Interpretive Data was last revised on 2017. Testing performed by: [address] [address] Imm gran pct 1.0 % CERNER Comment: Interpretive Data Percent cell count reference ranges are not reported, since discordance with absolute values may lead to misinterpretation of CBC data. Current Interpretive Data was last revised on 2017. Testing performed by: [address] [address] Lymphocyte pct 23.3 % CERNER Comment: Interpretive Data Percent cell count reference ranges are not reported, since discordance with absolute values may lead to misinterpretation of CBC data. Current Interpretive Data was last revised on 2017. Testing performed by: [facility], [address] [place] [address]., [address] Monocyte pct 6.1 % [facility] Comment: Interpretive Data Percent cell count reference ranges are not reported, since discordance with absolute values may lead to misinterpretation of CBC data. Current Interpretive Data was last revised on 2017. Testing performed by: [facility], [address] [place] [address]., [address] Eosinophil pct 2.8 % [facility] Comment: Interpretive Data Percent cell count reference ranges are not reported, since discordance with absolute values may lead to misinterpretation of CBC data. Current Interpretive Data was last revised on 2017. Testing performed by: [facility], [address] [place] [address]., [address] Basophil pct 0.7 % [facility] Comment: Interpretive Data Percent cell count reference ranges are not reported, since discordance with absolute values may lead to misinterpretation of CBC data. Current Interpretive Data was last revised on 2017. Testing performed by: [address] [address] Blood 02/13/2025 2:47 PM CDT 02/13/2025 7:34 PM CDT Braden Mckeon MD LAB BLOOD ORDERABLE S Final Result [facility] [id number] [place] [address] Department [place] [address] * PSA screen (02/13/2025 2:47 PM CDT) [...] data last revised 21. Testing performed by: [address] [address] Blood 02/13/2025 2:47 PM CDT 02/13/2025 7:34 PM CDT Braden Mckeon MD LAB BLOOD ORDERABLE S Final Result [address] Department [place] [address] * (ABNORMAL) CBC with auto differential (02/13/2025 2:47 PM CDT) WBC 9.05 3.80 - 9.90 K/cumm Comment:Testing performed by : [address] [address] Hgb 12.8(L) 13.0 - 17.5 g/dL CERNER Comment:Testing performed by : [address], [address] Hct 39.9 38.9 - 50.3 % CERNER Comment:Testing performed by : [address], [address] Plt 242 150 - 400 K/cumm CERNER Comment:Testing performed by : [address], [address] MPV 10.2 9.1 - 12.3 fL CERNER CH Comment:Testing performed by : [address], [address] RBC 4.15(L) 4.30 - 5.80 M/cumm CERNER CH Comment:Testing performed by : [address], [address] MCV 96.1 81.3 - 96.4 fL CERNER CH Comment:Testing performed by : [address], [address] MCH 30.8 27.1 - 33.3 pg CERNER CH Comment:Testing performed by : [address], [address] MCHC 32.1(L) 32.3 - 35.7 g/dL LUNA Comment:Testing performed by : [facility], [address] [place] [address], [address] RDW CV 13.8 11.1 - 14.9 % LUNA Comment:Testing performed by : [facility], [address] [place] [address], [address] RDW SD 48.8(H) 35.7 - 48.1 fL LUNA Comment:Testing performed by : [facility], [address] [place] [address], [address] NRBC abs 0.00 0.00 - 0.01 K/cumm LUNA Comment:Testing performed by : [facility], [address] [place] [address], [address] Blood 02/13/2025 2:47 PM CDT 02/13/2025 7:34 PM CDT Braden Mckeon MD LAB BLOOD ORDERABLE S Final Result Performing Organization Address City/[facility]/ZIP Co de Phone Number MARYPAM [place] [address] [address] Department [place] [address] * Cyclic citrul peptide antibody, IgG (02/13/2025 2:47 PM CDT) CCP Ab <0.5 <=2.9 units/mL Comment: Interpretive data Negative: <3 units/mL Positive: > or equal to 3 units/mL Current interpretive data was last revised on 2016. Testing performed by: [facility], [address] [place]., [address] Blood 02/13/2025 2:47 PM CDT 02/14/2025 10:22 AM CDT Braden Mckeon MD LAB BLOOD ORDERABLE S Final Result LUNA [place] [address] [address] Department [place] [address] * (ABNORMAL) C-peptide (02/13/2025 2:47 PM CDT) Pathologist [facility] C-peptide 13.90(H) 1.10 - 4.40 ng/mL Comment:Testing performed by : [facility], [address] [place]., [address] Blood 02/13/2025 2:47 PM CDT 02/14/2025 10:21 AM CDT Braden Mckeon MD LAB BLOOD ORDERABLE S Final Result LUNA [address] [address] Department [place] [address] * (ABNORMAL) Erythrocyte sedimentation rate (02/13/2025 2:47 PM CDT) [facility] Erythrocyte sedimentation rate 27(H) 1 - 20 mm/hr Comment:Testing performed by : [facility], [address] [place] [address], [address] Blood 02/13/2025 2:47 PM CDT 02/13/2025 7:34 PM CDT Braden Mckeon MD LAB BLOOD ORDERABLE S Final Result Performing Organization Address [facility]/ZIP Co de Phone Number MARYPAM [address] [address] Department [place] [address] * CRP (acute phase) (02/13/2025 2:47 PM CDT) [facility] CRP 4.3 <=10.0 mg/L Comment:Testing performed by : [facility], [address] [place] [address]., [address] Blood 02/13/2025 2:47 PM CDT 02/13/2025 7:34 PM CDT Braden Mckeon MD LAB BLOOD ORDERABLE S Final Result MARYPAM [address] [address] Department [place] [address] * Uric acid (02/13/2025 2:47 PM CDT) Pathologist [facility] Uric acid 5.7 3.0 - 8.0 mg/dL Comment:Testing performed by : [address] [address] Blood 02/13/2025 2:47 PM CDT 02/13/2025 7:34 PM CDT Braden Mckeon MD LAB BLOOD ORDERABLE S Final Result Performing Organization Address [facility]/[place] Co de Phone Number [facility] [address] [facility] [place] [address] * TSH (02/13/2025 2:47 PM CDT) [facility] Thyroid Stimulating Hormone 2.50 0.30 - 4.20 mcIUnit/mL Comment:Testing performed by : [address], [address] Blood 02/13/2025 2:47 PM CDT 02/13/2025 7:34 PM CDT Braden Mckeon MD LAB BLOOD ORDERABLE S Final Result Performing Organization Address [facility]/[place] Co de Phone Number [facility] [address] [facility] [place] [address] * (ABNORMAL) Hemoglobin A1c (02/13/2025 2:47 PM CDT) [facility] Hgb A1C 12.6(H) 4.0 - 5.6 % Comment:Testing performed by : [address] [address] Estimated Average Glucose 315 mg/dL LUNA [place] Comment: The ADA recommends reporting an estimated Average Glucose (eAG) with all Hemoglobin A1c results using the equation derived from a study of 507 normal and diabetic adults. Minority populations were underrepresented and children were not included. (Diabetes Care 31:9854-4035, 2008). The eAG is not equivalent to a fasting glucose. Testing performed by: [address] [address] Blood 02/13/2025 2:47 PM CDT 02/13/2025 7:34 PM CDT us Braden Mckeon MD LAB BLOOD ORDERABLE S Final Result [facility] [address] [facility] [place] Department [place] [address] * (ABNORMAL) Lipid panel (02/13/2025 2:47 PM [...] last revised on 2018. Testing performed by: [address] [address] Triglycerides 301(H) <=149 mg/dL LUNA [place]ER[place]OD Comment: [...] last revised on 2018. Testing performed by: [address] [address] HDL 35(L) >=40 mg/dL LUNA Comment: Interpretive [...] last revised on 2018. Testing performed by: [facility], [address] [place] [address]., [address] LDL, calculated 162(H) <=129 mg/dL LUNA Comment: [...] last revised on 2024. Testing performed by: [facility], [address] [place] [address]., [address] Non-HDL Cholesterol 219 mg/dL LUNA Comment: Interpretive [...] last revised on 2018. Testing performed by: [address] [address] Chol/HDL ratio 7 CERNER CH Comment:Testing performed by : [address] [address] Blood 02/13/2025 2:47 PM CDT 02/13/2025 7:34 PM CDT us Braden Mckeon MD LAB BLOOD ORDERABLE S Final Result [place] [address] [address] Department [place] [address] * (ABNORMAL) Comprehensive metabolic panel (02/13/2025 2:47 PM CDT) Sodium 137 135 - 145 mmol/L Comment:Testing performed by : [address] [address] Potassium, pl 5.0(H) 3.3 - 4.9 mmol/L CERNER CH Comment:Testing performed by : [address] [address] Chloride 99 97 - 110 mmol/L CERNER CH Comment:Testing performed by : [address] [address] CO2 23 22 - 32 mmol/L CERNER CH Comment:Testing performed by : [address] [address] Anion gap 15 2 - 15 mmol/L CERNER CH Comment:Testing performed by : [address] [address] BUN 53(H) 6 - 25 mg/dL CERNER CH Comment:Testing performed by : [address] [address] Creatinine 1.56(H) 0.80 - 1.30 mg/dL CERNER CH Comment:Testing performed by : [address], [address] Glucose 328(H) 70 - 199 mg/dL CERNER [...] was last revised 2022. Testing performed by: [facility], [address] [place] [address]., [address] Calcium 9.6 8.5 - 10.3 mg/dL CERNER CH Comment:Testing performed by : [address] [address] Bilirubin, total 0.3 0.1 - 1.2 mg/dL CERNER CH Comment:Testing performed by : [address] [address] Protein, pl 7.1 6.5 - 8.5 g/dL CERNER CH Comment:Testing performed by : [address] [address] Albumin 4.1 3.5 - 5.0 g/dL CERNER CH Comment:Testing performed by : [address] [address] Alk phos 133(H) 40 - 130 Units/L CERNER CH Comment:Testing performed by : [address] [address] ALT 33 7 - 55 Units/L CERNER CH Comment:Testing performed by : [address] [address] AST 31 10 - 50 Units/L CERNER CH Comment:Testing performed by : [address] [address] Blood 02/13/2025 2:47 PM CDT 02/13/2025 7:34 PM CDT Braden Mckeon MD LAB BLOOD ORDERABLE S Final Result Performing Organization Address City/State/[place] Number [place] [address] [address] Department [place] [address] from Last 3 Months Insurance MEDICARE [facility] MEDICARE SUPPLEMENT Care Teams Screen Tender Helper Relationship Specialty Start Date End Date Braden Mckeon MD [address] [place] [address] [place] [address] PCP - General Family Practice 02/13/25
== END 2025-05-07 13:56 | disposition home or self-care (01) ==
PROVIDERS: PCP Family Medicine; Visit Provider Podiatrist Foot & Ankle Surgery
DX: I73.89 Other specified peripheral vascular diseases (principal)
CPT/HCPCS: 93923

== ENCOUNTER 2025-06-10 13:09 | Emergency (ER) | payer MEDICARE, BC, SELFPAY ==
[2025-06-10 13:19] VITALS: BP 118/72; PULSE 83; RESP 18; TEMP 37.2; O2SAT 98
--- NOTE | 2025-06-10 14:19 | ED.GENADULT ---
HPI - General Adult General Chief complaint: Upper Respiratory Infection Stated complaint: wants covid test Source: patient Mode of arrival: ambulatory Limitations: no limitations History of Present Illness HPI narrative: Patient presents for evaluation of sick symptoms for last 9 days. He reports chills, generalized body aches, cough, chest tightness, shortness of breath, and nausea. He has had a longstanding history of nausea and vomiting was scheduled to be seen by Gastroenterology today. He went to his appointment and noted that he was having sick symptoms. They canceled his appointment and asked him to go have a COVID test performed. No recent sick contacts to his knowledge. Denies objective fever, abdominal pain, diarrhea, and chest pain. Related Data Home Medications ?Medication ?Instructions ?Recorded ?Confirmed ?Last Taken ?Type allopurinol 300 mg tablet 300 mg PO DAILY 04/14/21 06/10/25 Unknown History bumetanide 2 mg tablet 2 mg PO DAILY 04/14/21 06/10/25 Unknown History gabapentin 300 mg capsule 2 mg PO TID 04/14/21 08/06/24 Unknown History glimepiride 4 mg PO BID 04/14/21 08/06/24 Unknown History spironolactone 25 mg tablet 25 mg PO BID 04/14/21 08/06/24 Unknown History dextroamphetamine-amphetamine 20 06/10/25 Unknown History mg tablet gabapentin 600 mg tablet mg 06/10/25 Unknown History glimepiride 4 mg tablet mg 06/10/25 Unknown History indomethacin 50 mg capsule mg 06/10/25 Unknown History levothyroxine 25 mcg tablet mcg 06/10/25 Unknown History metformin 500 mg tablet mg 06/10/25 Unknown History pantoprazole 40 mg tablet,delayed mg PO 06/10/25 Unknown History release ropinirole 2 mg tablet mg 06/10/25 Unknown History rosuvastatin 20 mg tablet mg 06/10/25 Unknown History Allergies Allergy/AdvReac Type Severity Reaction Status Date / Time No Known Allergies Allergy Unknown Verified 06/10/25 13:23 Review of Systems Review of Systems: CONSTITUTIONAL: Reports chills and fatigue. Denies fever or sweats. EYES: Denies visual changes, redness, or discharge. ENT: Denies rhinorrhea, congestion, sore throat, or otalgia. CARDIOVASCULAR: Denies chest pain, palpitations, or edema. RESPIRATORY: Reports cough, SOB and chest tightness GASTROINTESTINAL:Reports nausea and vomiting. Denies abdominal pain or diarrhea. GENITOURINARY: Denies dysuria or hematuria. SKIN: Denies rash or itching. MUSCULOSKELETAL: Reports generalized body aches NEUROLOGIC: Reports generalized weakness. Denies headache, numbness, dizziness PSYCHIATRIC: Denies anxiety or depression. [facility], [facility] Past Medical History Medical History Chronic kidney disease Congestive heart failure Rotator cuff tear, left Diabetes Gout Surgical History Surgical History History of shoulder surgery right Family History Family History Mother Cancer Social History Social History Social History: caffeine use Smoking status: Never smoker Alcohol intake: never Substance use: never Gender identity (if verbalized by the patient): Male Exam Narrative: GENERAL: Well-appearing, well-nourished, and in no acute distress. HEAD: Normocephalic, atraumatic. EYES: PERRLA and EOMI. ENT: Nares clear, no rhinorrhea or epistaxis. Mucous membranes moist. Oropharynx without tonsillar hypertrophy exudate or other lesions. Bilateral TMs pearly mayes nonbulging NECK: Supple. No adenopathy or masses. No carotid bruits or JVD CHEST: Clear to auscultation. No respiratory distress. No wheezes rales or rhonchi HEART: Regular rate and rhythm. No murmur heard. Normal peripheral pulses. ABDOMEN: Soft, nontender, nondistended, normal active bowel sounds. EXTREMITIES: Normal range of motion. No edema. SKIN: Warm, dry, no rash. NEURO: No focal deficits. Alert and oriented x3. PSYCH: Normal mood and affect. Course Course Emergency Course: This is a 69-year-old male who presented for evaluation of sick symptoms. COVID and influenza were negative. I offered chest x-ray. He declined. Think this is reasonable. His saturations are normal on room air and he appears well clinically. Will dc with Pepcid and Zofran. Increase hydration. For worsening symptoms go to the ER, otherwise follow up with primary care provider. Patient in agreement with plan of care. Level of Care: Express Care Visit Vital Signs Vital signs: Vital Signs Temperature 37.2 C 06/10/25 13:19 Pulse Rate 83 06/10/25 13:19 Respiratory Rate 18 06/10/25 13:19 Blood Pressure 118/72 06/10/25 13:19 Pulse Oximetry 98 06/10/25 13:19 Oxygen Delivery Room Air 06/10/25 13:19 Temperature 37.2 C 06/10/25 13:19 Pulse Rate 83 06/10/25 13:19 Respiratory Rate 18 06/10/25 13:19 Blood Pressure 118/72 06/10/25 13:19 Pulse Oximetry 98 06/10/25 13:19 Oxygen Delivery Room Air 06/10/25 13:19 Medical Decision Making Vital Signs Vital Signs: Vital Signs Temperature 37.2 C 06/10/25 13:19 Pulse Rate 83 06/10/25 13:19 Respiratory Rate 18 06/10/25 13:19 Blood Pressure 118/72 06/10/25 13:19 Pulse Oximetry 98 06/10/25 13:19 Oxygen Delivery Room Air 06/10/25 13:19 Temperature 37.2 C 06/10/25 13:19 Pulse Rate 83 06/10/25 13:19 Respiratory Rate 18 06/10/25 13:19 Blood Pressure 118/72 06/10/25 13:19 Pulse Oximetry 98 06/10/25 13:19 Oxygen Delivery Room Air 06/10/25 13:19 Discharge Plan Discharge Clinical Impression: Viral infection Patient Disposition: Home Condition: Stable Instructions: Antibiotic Form, Viral Syndrome (ED) Patient Language: Syriac Prescriptions: New famotidine [Pepcid] 20 mg tablet 20 mg PO DAILY Qty: 10 0RF ondansetron 4 mg tablet,disintegrating 4 mg PO Q6H PRN (Reason: nausea and vomiting) Qty: 15 0RF No Action metformin 500 mg tablet gabapentin 600 mg tablet levothyroxine 25 mcg tablet ropinirole 2 mg tablet pantoprazole 40 mg tablet,delayed release (DR/EC) PO dextroamphetamine-amphetamine 20 mg tablet glimepiride 4 mg tablet indomethacin 50 mg capsule rosuvastatin 20 mg tablet bumetanide 2 mg tablet 2 mg PO DAILY spironolactone 25 mg Tablet 25 mg PO BID gabapentin 300 mg Capsule 2 mg PO TID allopurinol 300 mg tablet 300 mg PO DAILY glimepiride 4 mg PO BID tramadol 50 mg tablet 50 mg PO Q8H PRN (Reason: pain) Qty: 15 0RF albuterol sulfate 90 mcg/actuation HFA aerosol inhaler 2 puff inhalation QID PRN (Reason: shortness of breath or wheezing) Qty: 8.5 0RF (DME) Aerochamber Plus Z Stat Spacer See Rx Instructions .Route Qty: 1 0RF Rx Instructions: As directed doxycycline hyclate 100 mg capsule 100 mg PO BID 7 Days Qty: 14 0RF prednisone 20 mg tablet 40 mg PO DAILY 5 Days Qty: 10 0RF Follow-up/Referrals: Mike,Braden Shah MD [Primary Care Provider, Unknown] Time of Disposition: 14:19
--- OUTSIDE RECORDS SUMMARY | 2025-06-10 16:03 | XMS_ITS | Encounter Summary ---
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
--- OUTSIDE RECORDS SUMMARY | 2025-06-10 16:03 | XMS_ITS | Encounter Summary ---
Author Organization [facility] Address [address] [place] [address] Care Team Providers Care Child Life Assistant Name Role Phone Braden Mckeon MD Primary Care Provider Encounter Details Date Type Department Care Team (Latest Contact Info) Description 05/09/2025 Results Follow-Up [facility] [address] [place] [phone] Tiffany Yeung RN USE ECHOCARDIOGRAM W CON Social History Tobacco Use Types Packs/Day Years Used Date Smoking Tobacco: Never Smokeless Tobacco: Never Alcohol Use Standard Drinks/Week Comments Not Currently 0 (1 standard drink = 0.6 oz pur e alcohol) Sex and Gender Information Value Date Recorded Sex Assigned at Male 04/29/2025 7:50 AM CDT Legal Sex Male 4:15 PM CDT Gender Identity Not on file Sexual Orientation Not on file documented as of this encounter Plan of Treatment Upcoming Encounters Date Type Department Care Team (Late st Contact Info) Description 07/24/2025 11:30 AM SERVICE ELECTRICIAN Office Visit [facility] [address] [place] [phone] Elizabeth Kang FNP [address] [facility] [address] [place], [place] [phone] documented as of this encounter Visit Diagnoses Not on filedocumented in this encounter Care Teams Child Life Assistant Relationship Specialty Start Date End Date Braden Mckeon MD [address] [facility] [address] [place] [address] PCP - General FAMILY PRACTICE 04/21/25 documented as of this encounter
--- OUTSIDE RECORDS SUMMARY | 2025-06-10 16:03 | XMS_ITS | Patient Health Record ---
Author Organization [facility] Address [address] [place] [address] Support Name Relationship Address Phone Mariaelena Poon Emergency Contact [address] [place] [address] Norris Poon Guarantor Unknown Reason For Referral [...] Problem Status W/U Status Risk Notes Problem 64697215 Cramps, muscle, general (R25.2) Active confirmed Problem 858015246 Iron deficiency anemia due to chronic blood loss (D50.0) Active confirmed Problem 06129238 Hypogonadism in male (E29.1) Active confirmed Problem 50004318 Fatigue, unspecified type (R53.83) Active confirmed Problem 346493397 Hx of malignant neoplasm of prostate (Z85.46) Active confirmed Problem 094276506 Abnormal endocrine laboratory test finding (R68.89) Active confirmed Plan Of Treatment Pending Test Test Name Order Date CMP Comprehensive Metabolic Panel ([facility]) 47994 01/23/2019 T4, Free ([facility], IHC) 69562 01/23/2019 LH, Luteinizing Hormone ([facility]), 21225 12/2018 Magnesium (GM), 29081 01/23/2019 TSH ([facility]), 15378 01/23/2019 Cortisol, Random (Serum) 01/23/2019 DHEA Sulfate, Serum by ECLIA 01/23/2019 ACTH (Adrenocorticotropic Horm), Plasma 01/23/2019 Insulin Like Growth Factor 1 (IGF1) 12/2018 Prolactin 01/23/2019 Reticulocyte Count, Automated 01/23/2019 Testosterone, Total ([facility]), 95164 019 Iron and TIBC ([facility] only) 01/23/2019 21 Hydroxylase Antibody 01/23/2019 CBC with Auto Diff ([facility] IHC) 01/23/2019 Insurance Providers Payer Name Payer Address Payer Phone Subscriber Number Group Number Insured Name Patient Relationship to Insured Coverage Start Date Coverage End Date [facility] [address] [place] [phone] [id number] Norris Paz Self - patient is the [...]
--- OUTSIDE RECORDS SUMMARY | 2025-06-10 16:04 | XMS_ITS | Patient Health Record ---
Author Organization [facility] Address [address] [facility] [address] [place] [address] Care Team Providers Care Body Line Finisher Name Role Phone Norris Ayala Unavailable [phone] Kameron Lopez PA-C Unavailable Unavailable Reason For [...] Risk Notes Problem Malignant neoplasm of prostate (904954293) Malignant neoplasm of prostate (C61) 04/25/20 14 Active confirmed [id number] 838- Problem Erectile dysfunction following radical prostatectomy (028664549495247) Erectile dysfunction following radical prostatectomy (N52.31) 01/02/20 15 Active confirmed [id number] 838- Problem Postprocedural membranous urethral stricture (117074129417574) 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) 10/20/19 17 Active confirmed [id number] 838- Problem Gross hematuria (342427114) Gross hematuria (R31.0) 10/20/19 17 Active confirmed [id number] 838- Problem Frequency of micturition (083402870) Frequency of micturition (R35.0) 10/28/19 17 Active confirmed [id number] 838- Problem Nodular prostate w/ urinary obstruction (600.11) 04/03/20 14 Active confirmed [id number] 838- Problem Elevated PSA (881445529) Elevated PSA (790.93) 04/03/20 14 Problem resolved confirmed [id number] 838- Plan Of Treatment Pending Test Test Name Order Date Urinalysis 02/24/2020 Insurance Providers Payer Name Payer Address Payer Phone Subscriber Number Group Number Insured Name Patient Relationship to Insured Coverage Start Date Coverage End Date Medicare [address] [place] [address] [id number] Norris Paz Self - patient is the insured [facility] [address] [place], [place] [phone] [id number] Norris Paz Self - patient is the insured Medical (General) History Medical History History ICD Code CHF PHA type 2 diabetes kidney disease Surgical History Surgery Date(Month/Year) prostatectomy
--- OUTSIDE RECORDS SUMMARY | 2025-06-10 16:04 | XMS_ITS | Clinical Summary ---
Author Organization [facility] Address [facility] [place] [address] Care Team Providers Care Magnetic Prospecting Operator Name Role Phone Braden Mckeon MD Primary Care Provider Allergies No known active allergies Medications allopurinol (ZYLOPRIM) 300 MG tablet Take 1 tablet (300 mg total) by mouth daily. Active bumetanide (BUMEX) 2 MG tablet Take 1 tablet (2 mg total) by mouth 2 (two) times daily. Active DULoxetine (CYMBALTA) 30 MG capsule Take 1 capsule (30 mg total) by mouth daily. 03/03/2025 6 Active gabapentin (NEURONTIN) 600 MG tablet Take 1 tablet (600 mg total) by mouth 3 (three) times daily. 03/03/2025 Active glimepiride (AMARYL) 4 MG tablet Take 1 tablet (4 mg total) by mouth 2 (two) times daily. Active indomethacin (INDOCIN) 50 MG capsule Take 1 capsule (50 mg total) by mouth 3 (three) times daily. 03/27/2025 6 Active metFORMIN (GLUCOPHAGE) 500 MG tablet Take 1 tablet (500 mg total) by mouth 2 (two) times daily. 02/18/2025 5 Active pantoprazole EC (PROTONIX) 40 MG tablet Take 1 tablet (40 mg total) by mouth daily. 04/02/2025 6 Active rOPINIRole (REQUIP) 2 MG tablet Take 2 tablets (4 mg total) by mouth 2 (two) times daily. 12/10/2024 Active rosuvastatin (CRESTOR) 20 MG tablet Take 1 tablet (20 mg total) by mouth daily. 02/18/2025 5 Active spironolactone (ALDACTONE) 25 MG tablet Take 1 tablet (25 mg total) by mouth 2 (two) times daily. Active levothyroxine (SYNTHROID) 25 MCG tablet Take 0.5 tablets (12.5 mcg total) by mouth daily. 04/24/2025 Active Iron-Vitamin C (VITRON-C) 65-125 MG Tab Take 1 tablet by mouth 3 (three) times a week. Active Multiple Vitamins-Minera ls (EYE HEALTH OR) Take by mouth daily. Active Active Problems Problem Noted Date Diagnosed Date Chronic diastolic CHF (congestive heart failure) 04/24/2025 Resolved Problems Problem Noted Date Diagnosed Date Resolved Date Chronic systolic congestive heart failure 02/13/2025 04/24/2025 Encounters Date Type Department Care Team Description 05/09/2025 Results Follow-Up [facility] [address] [place] [address] Tiffany Yeung, RN USE ECHOCARDIOGRAM W CON 05/08/2025 9:00 AM CDT - 05/08/2025 11:59 PM CDT Hospital Encounter [facility] Ultrasound [address] [place] [address] Ra Joe MD Discharge Disposition: Home or Self Care (Routine Discharge) 05/08/2025 Travel 04/24/2025 11:30 AM CDT Office Visit [facility] [address] [place] [phone] Ra Joe MD Consult (Was in [place] in [place]. For shortness of breath) 04/24/2025 Travel 04/24/2025 Orders Only [facility], [address] [address] Miranda Krishnan MA from Last 3 Months Family History Relation Status Comments Brother 1 Brother 2 Father Maternal Grandfather Maternal Grandmother Mother Paternal Grandfather Paternal Grandmother Social History Tobacco Use Types Packs/Day Years Used Date Smoking Tobacco: Never Smokeless Tobacco: Never Tobacco Cessation:Counseling Given: Not Answered Alcohol Use Standard Drinks/Week Comments Not Currently 0 (1 standard drink = 0.6 oz pur e alcohol) Sex and Gender Information Value Date Recorded Sex Assigned at Male 04/29/2025 7:50 AM CDT Legal Sex Male 4:15 PM CDT Gender Identity Not on file Sexual Orientation Not on file Last Filed Vital Signs Vital Sign Reading Time Taken Comments Blood Pressure 110/70 04/24/2025 11:48 AM CDT Pulse 73 04/24/2025 11:48 AM CDT Temperature - - Respiratory Rate - - Oxygen Saturation 94% 04/24/2025 11:48 AM CDT Inhaled Oxygen Concentration - - Weight 126.1 kg (278 lb) 04/24/2025 11:48 AM CDT Height 182.9 cm (6') 04/24/2025 11:48 AM CDT Body Mass Index 37.7 04/24/2025 11:48 AM CDT Plan of Treatment Upcoming Encounters Date Type Department Care Team (Late st Contact Info) Description 07/24/2025 11:30 AM HAIR SPRING WINDER [facility] [address] [place] [phone] Elizabeth Kang FNP [address] [place] [address] Health Maintenance Due Date Last Done Comments Colorectal Cancer Screening Colonoscopy (10 Years) 1955 Kidney Health Evaluation 1955 Lipid Panel 1955 Diabetes: Retinopathy Eye Exam 1974 Hepatitis C 1974 DTaP, Tdap and Td Vaccines ( 1 - Tdap) 11/10/1975 Pneumococcal Vaccine: 50+ Ye ars (1 of 2 - PCV) 11/10/1975 Zoster Vaccines (1 of 2) 2006 RSV Immunization or 60+ Years (1 - Risk 60-74 years 1-dose series) 2016 Annual Medicare Wellness Visit 2021 COVID-19 Vaccine (1 - 2023-2 5 season) 2025 Hemoglobin A1C 05/16/2025 02/13/2025 Influenza Adult (#1) 2025 Hepatitis A Vaccines Aged Out No long er eligible based on patient's age to complete this topic Meningococcal B Vaccine Aged Out No l onger eligible based on patient's age to complete this topic Meningococcal Vaccine Aged Out No amy jeferson eligible based on patient's age to complete this topic RSV Immunizations Under 20 Months Aged Out No longer eligible based on patient's age to complete this topic Procedures Procedure Name Priority Date/Time Associated Diagnosis Comments USE ECHOCARDIOGRAM W CON Routine 05/08/2025 10:10 AM CDT Chronic diastolic CHF (congestive heart failure) ([facility]) PAF (paroxysmal atrial fibrillation) ([facility]) from Last 3 Months Results * USE ECHOCARDIOGRAM W CON (05/08/2025 10:10 AM CDT) Anatomical Region Laterality Modality NA Ultrasound 05/08/2025 9:28 AM CDT Narrative 05/09/2025 4:25 PM CDT LULÚ Cain.Name: PoonNorris.ID: [id number] .Date: 05/08/2025 Refer.MD: Bryan, [facility] Radiology Exam Time: 9:28:00 AM Study Type:[facility] Height: 72 in Weight: 275 lb BSA: 2.44 m2 Age: 3 1955,69Y Sex: M Sonogrphr: Marina Cain. Stat.:Outpatient CPT - 4: C8929 Reason for Study:CHF, SOB Procedures: 2D, M-mode, Doppler, Color Flow, Myocardial contrast was used to enhance endocardial definition. Study performed at [place], [place] and interpreted by [facility]. ++++++++++++++++++++++++++++++++++++ SUMMARY: ++++++++++++++++++++++++++++++++++++ Left ventricle is normal in size and systolic function Estimated EF of 50-55% Right ventricle is normal in size and systolic function No significant valve dysfunction. Unable to estimate pulmonary pressures. ++++++++++++++++++++++++++++++++++++ FINDINGS: ++++++++++++++++++++++++++++++++++++ LV: The left ventricular size is normal. Estimated left ventricular ejection fraction is 50-55%. There is no left ventricular hypertrophy. Left ventricular diastolic function is abnormal. RV: The right ventricle size is normal. The right ventricular function is normal. LA: Left atrial size is normal. RA: The right atrial size is normal. MARTINEZ: No evidence of pericardial effusion. AO: Aorta is normal. PA: Estimated right atrial pressure of 3 mmHg. Unable to reliably quantitate pulmonary systolic pressure. SVn: Inferior vena cava is normal. Inferior vena cava shows >50% collapse with respiration consistent with normal right atrial pressure. AV: The aortic valve is trileaflet. There is no aortic stenosis. There is no evidence of aortic regurgitation. MV: The mitral valve is structurally normal. There is trace mitral regurgitation. PV: Trace pulmonic regurgitation. Pulmonic valve not well visualized. TV: The tricuspid valve appears structurally normal. There is trace tricuspid regurgitation. <Electronic Signature> 05/09/2025 04:25 PM Ra Joe M.D. Procedure Note Ra Joe MD - 05/09/2025 LULÚ Cain.Name: Norris Poon.ID: [id number] .Date: 05/08/2025 Refer.MD: Bryan, [facility] Radiology Exam Time: 9:28:00 AM Study Type:[facility] Height: 72 in Weight: 275 lb BSA: 2.44 m2 Age: 3 1955,69Y Sex: M Sonogrphr: Marina Pat. Stat.:Outpatient CPT - 4: C8929 Reason for Study:CHF, SOB Procedures: 2D, M-mode, Doppler, Color Flow, Myocardial contrast was used to enhance endocardial definition. Study performed at [place], [place] and interpreted by [facility]. ++++++++++++++++++++++++++++++++++++ SUMMARY: ++++++++++++++++++++++++++++++++++++ Left ventricle is normal in size and systolic function Estimated EF of 50-55% Right ventricle is normal in size and systolic function No significant valve dysfunction. Unable to estimate pulmonary pressures. ++++++++++++++++++++++++++++++++++++ FINDINGS: ++++++++++++++++++++++++++++++++++++ LV: The left ventricular size is normal. Estimated left ventricular ejection fraction is 50-55%. There is no left ventricular hypertrophy. Left ventricular diastolic function is abnormal. RV: The right ventricle size is normal. The right ventricular function is normal. LA: Left atrial size is normal. RA: The right atrial size is normal. MARTINEZ: No evidence of pericardial effusion. AO: Aorta is normal. PA: Estimated right atrial pressure of 3 mmHg. Unable to reliably quantitate pulmonary systolic pressure. SVn: Inferior vena cava is normal. Inferior vena cava shows >50% collapse with respiration consistent with normal right atrial pressure. AV: The aortic valve is trileaflet. There is no aortic stenosis. There is no evidence of aortic regurgitation. MV: The mitral valve is structurally normal. There is trace mitral regurgitation. PV: Trace pulmonic regurgitation. Pulmonic valve not well visualized. TV: The tricuspid valve appears structurally normal. There is trace tricuspid regurgitation. <Electronic Signature> 05/09/2025 04:25 PM Ra Joe M.D. Ra Joe MD ECHO Final Resul t from Last 3 Months Insurance MEDICARE [facility] Care Teams Magnetic Prospecting Operator Relationship Specialty Start Date End Date Braden Mckeon MD [address] [address] PCP - General FAMILY PRACTICE 04/21/25
--- OUTSIDE RECORDS SUMMARY | 2025-06-10 16:04 | XMS_ITS | Encounter Summary ---
Author Organization [facility] Address [address] [place] [id number] Care Team Providers Care Comic Book Designer Name Role Phone Braden Mckeon MD Primary Care Provider Encounter Details Date Type Department Care Team (Late st Contact Info) Description 01/28/2025 Abstract [facility] [address] [place], [place] [phone] Lucian Rogers MA Social History Tobacco Use [...] st Contact Info) Description 07/24/2025 11:30 AM ELEVATOR ERECTOR Office Visit [facility] [address] [place] [phone] Elizabeth Kang FNP 3 [facility] [address] [place] [address] documented as of this encounter Procedures Procedure Name Priority Date/Time Associated Diagnosis Comments COMPREHENSIVE METABOLIC PANEL Routine 02/26/2025 CBC, MANUAL DIFF Routine 02/26/2025 PRO-BRAIN NATRIURETIC PEPTIDE Routine 11/26/2024 COMPREHENSIVE METABOLIC PANEL Routine 11/26/2024 CBC, MANUAL DIFF Routine 11/26/2024 documented in this encounter Results * (ABNORMAL) COMPREHENSIVE METABOLIC PANEL (02/26/2025) SODIUM S/P/B 139 GLUCOSE 300 mg/dL AST 26 BUN 46 CREATININE S/P/B 1.84(A) 0.7 - 1.3 CALCIUM S/P/B 9.7 POTASSIUM S/P/B 5.2 CHLORIDE S/P/B 102 ALT 26 GFR ESTIMATE 37 us Default History Genericprovider LABORATORY Final Result * CBC, MANUAL DIFF (02/26/2025) WBC 7.1 HGB 12.6 HCT 39.8 PLT 197 us Default History Genericprovider LABORATORY Final Result * (ABNORMAL) COMPREHENSIVE METABOLIC PANEL (11/26/2024) SODIUM [...] on filedocumented in this encounter Care Teams Comic Book Designer Relationship Specialty Start Date End Date Braden Mckeon MD [address] [place] [phone] PCP - General FAMILY PRACTICE 04/21/25 documented as of this encounter
--- OUTSIDE RECORDS SUMMARY | 2025-06-10 16:04 | XMS_ITS | Clinical Summary ---
Author Organization [facility] [address] [facility] Address [address] [place] [address] Care Team Providers Care Travel Registered Nurse Pacu Name Role Phone Braden Mckeon MD Primary Care Provi olinda Allergies No known active allergies Medications gabapentin (NEURONTIN) 600 mg tablet Take 1 tablet (600 mg total) by mouth 3 (three) times a day Active spironolactone (ALDACTONE) 25 mg tablet Take 1 tablet (25 mg total) by mouth 2 (two) times a day Active allopurinoL (ZYLOPRIM) 300 mg tablet Take 1 tablet (300 mg total) by mouth daily Active rosuvastatin (CRESTOR) 20 mg tabletIndications :Mixed hyperlipidemia Take 1 tablet (20 mg total) by mouth daily 90 tablet 1 02/19/20 25 2024 Active Ventolin HFA 90 mcg/actuation inhaler INHALE [...] mouth daily 90 capsule 1 03/03/20 25 2025 Active levothyroxine (SYNTHROID) 25 mcg tablet Take 1 tablet (25 mcg total) by mouth 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 before breakfast 90 tablet 1 03/03/[address] (PROTONIX) 40 mg EC tabletIndications :Abdominal pain Take 1 tablet (40 mg total) by mouth daily 90 tablet 1 04/02/20 25 2025 Active metFORMIN (GLUCOPHAGE) 500 mg tabletIndications :Type 2 diabetes mellitus without complication, without long-term current use of insulin (HCC) Take 1 tablet (500 mg total) by mouth 2 (two) times a day with meals 180 tablet 1 05/19/20 25 2025 Active iron,carbonyl-vit root C (Vitron-C) 65 mg iron- 125 mg tablet,delayed release (DR/EC) Take 1 tablet by mouth 3 (three) times a week Active bumetanide (BUMEX) 2 mg tablet Take 1 tablet (2 mg total) by mouth 2 (two) times a day 180 tablet 1 06/03/20 25 Active glimepiride (AMARYL) 4 mg tabletIndications :type 2 diabetes mellitus Take 1 tablet (4 mg total) by mouth 2 (two) times a day 180 tablet 1 06/03/20 25 Active dextroamphetamine -amphetamine (ADDERALL) 20 mg tablet Take 1 tablet (20 mg total) by mouth 2 (two) times a day 60 tablet 06/03/20 25 2024 Active bumetanide (BUMEX) 2 mg tablet Take 1 tablet (2 mg total) by mouth 2 (two) times a day 2024 Discontinued(R eorder) glimepiride (AMARYL) 4 mg tabletIndications :type 2 diabetes mellitus Take 1 tablet (4 mg total) by mouth 2 (two) times a day 2024 Discontinued(R eorder) metFORMIN (GLUCOPHAGE) 500 mg tabletIndications :Type 2 diabetes mellitus without complication, without long-term current use of insulin (HCC) Take 1 tablet (500 mg total) by mouth 2 (two) times a day with meals 180 tablet 1 02/19/20 25 2024 Discontinued(R eorder) indomethacin (INDOCIN) 50 mg capsule Take 1 capsule (50 mg total) by mouth 3 (three) times a day with meals 270 capsule 1 03/27/20 25 2024 Discontinued dextroamphetamine -amphetamine (ADDERALL) 20 mg tablet Take 1 tablet (20 mg total) by mouth 2 (two) times a day 60 tablet 04/02/20 25 2024 Discontinued(R eorder) Active Problems Problem Noted Date Diagnosed Date Acute bronchitis 06/03/2025 Injury of left shoulder 06/03/2025 Left-sided chest pain 06/03/2025 Low back pain 06/03/2025 Assessment & Plan (06/03/2025 2:54 PM CDT): Acute pain of left hip 06/03/2025 Assessment & Plan (06/03/2025 5:31 PM CDT): He is going to stop the indomethacin. Ideally we can get his blood sugars under control so that he can be considered for spinal injections. Non-recurrent bilateral ingu inal hernia without obstruction or gangrene 06/03/2025 Assessment & Plan (06/03/2025 2:54 PM CDT): Abdominal pain 04/02/2025 Assessment & Plan (06/03/2025 2:54 PM CDT): Assessment & Plan (04/02/2025 2:05 PM CDT): Orders: Ambulatory referral to Gastroenterology; Future pantoprazole DR (PROTONIX) 40 mg EC tablet; Take 1 tablet (40 mg total) by mouth daily Lipase; Future CT Abdomen Pelvis W WO Contrast; Future Nausea 04/02/2025 Assessment & Plan (06/03/2025 2:54 PM CDT): Assessment & Plan (04/02/2025 2:05 PM CDT): Orders: Ambulatory referral to Gastroenterology; Future CT Abdomen Pelvis W WO Contrast; Future Chronic fatigue syndrome 04/02/2025 Assessment & Plan (04/02/2025 2:05 PM CDT): Easy bruisability 04/02/2025 Assessment & Plan (04/02/2025 2:05 PM CDT): Orders: CBC with auto differential; Future Protime-INR; Future aPTT; Future Fatty liver disease, nonalcoholic 04/02/2025 Assessment & Plan (06/03/2025 5:31 PM CDT): Assessment & Plan (04/02/2025 2:05 PM CDT): Orders: CT Abdomen Pelvis W WO Contrast; Future Type 2 diabetes mellitus wit hout complication, without long-term current use of insulin 02/13/2025 Assessment & Plan (06/03/2025 2:54 PM CDT): Orders: RetinaVue Scanner - OU - Both Eyes Hemoglobin A1c; Future Lipid panel; Future Assessment & Plan (04/02/2025 2:05 PM CDT): [...] comorbidity and body mass index (BMI) of 37.0 to 37.9 in adult 02/13/2025 Assessment & Plan (06/03/2025 2:54 PM CDT): Assessment & Plan (04/02/2025 2:05 PM CDT): Assessment & Plan (02/13/2025 2:28 PM CDT): Paroxysmal atrial fibrillation 02/13/2025 Assessment & Plan (02/13/2025 2:28 PM CDT): Inflammatory arthritis 02/13/2025 Assessment & Plan (02/13/2025 2:28 PM CDT): Orders: CBC with auto differential; Future NATASHA ab ql w/rflx to NATASHA qn; Future Erythrocyte sedimentation rate; Future Cyclic citrul peptide antibody, IgG; Future CRP (acute phase); Future Resolved Problems Problem Noted Date Diagnosed Date Resolved Date Hepatic steatosis 06/03/2025 06/03/2025 Encounters Date Type Department Care Team Description 06/04/2025 Results Follow-Up [facility] at [address] [phone] Braden Mckeon MD Hepatitis C antibody Blood, Hemoglobin A1c, Lipid panel, RetinaVue Scanner - OU - Both Eyes 06/03/2025 3:30 PM CDT Lab [facility] - Outpatient Center at [address] [id number] Need for hepatitis C screening test; Type 2 diabetes mellitus without complication, without long-term current use of insulin (HCC) 06/03/2025 2:30 PM CDT Office Visit [facility] at [address] [phone] Braden Mckeon MD Type 2 diabetes mellitus without complication, without long-term current use of insulin (HCC) (Primary Dx); Class 2 severe obesity due to excess calories with serious comorbidity and body mass index (BMI) of 37.0 to 37.9 in adult; Non-recurrent bilateral inguinal hernia without obstruction or gangrene; Nausea; Epigastric pain; Acute pain of left hip; Chronic right-sided low back pain without sciatica; Fatty liver disease, nonalcoholic; Need for vaccination; Need for hepatitis C screening test 05/13/2025 Results Follow-Up [facility] Primary Care at [address] [phone] Abdomen Pelvis W Contrast 05/06/2025 Telephone [facility] at [address] [phone] Braden Mckeon MD 04/03/2025 Telephone [facility] at [address] [phone] Braden Mckeon MD 04/03/2025 Results Follow-Up [facility] Primary Care at [address] [phone] Braden Mckeon MD Albumin Creatinine Ratio, Urine, CBC with auto differential, Protime-INR, Additional followed-up results: 2 04/03/2025 Telephone [facility] at [address] [phone] Braden Mckeon MD 04/02/2025 2:30 PM CDT Lab [facility] Outpatient Lab - Outpatient Center at [place] [id number] Type 2 diabetes mellitus without complication, without long-term current use of insulin (HCC); Easy bruisability; Abdominal pain 04/02/2025 1:45 PM CDT Office Visit [facility] Primary Care at [address] [phone] Braden Mckeon MD Class 2 severe obesity due to excess calories with serious comorbidity and body mass index (BMI) of 38.0 to 38.9 in adult (HCC) (Primary Dx); Type 2 diabetes mellitus without complication, without long-term current use of insulin (HCC); Abdominal pain; Nausea; Chronic fatigue syndrome; Easy bruisability; Fatty liver disease, nonalcoholic 03/27/2025 Orders Only [facility] Care at [address] [phone] Braden Mckeon MD from Last 3 Months Immunizations Immunization Administration Dates Next Due COVID-19 MRNA (MODERNA) .5 M L (50 MCG) VACCINE (12 YEARS AND UP) 05/15/2025 Hep B Vaccine 05/15/2025 Influenza, Unspecified 05/15/2025,2023(Deferred: Patient Refused),05/30/2024(Deferred: Patient Refused),05/30/2024(Deferred: Patient Refused) Pneumococcal Conjugate Pcv20 06/03/2025 Social History Tobacco Use Types Packs/Day Years [...] on file Legal Sex Male 4:50 PM [employer] Gender Identity Not on file Sexual Orientation Not on file Obstetrics History Last Filed Vital Signs Vital Sign Reading Time Taken Comments Blood Pressure 108/66 06/03/2025 2:19 PM CDT Pulse 111 06/03/2025 2:19 PM CDT Temperature 36.5 C (97.7 F) 06/03/2025 2:19 PM CDT Respiratory Rate 21 06/03/2025 2:19 PM CDT Oxygen Saturation 98% 06/03/2025 2:19 PM CDT Inhaled Oxygen Concentration - - Weight 126.1 kg (278 lb) 06/03/2025 2:19 PM CDT Height 182.9 cm (6' 0.01) 06/03/2025 2:19 PM CD T Body Mass Index 37.7 06/03/2025 2:19 PM CDT Plan of Treatment Health Maintenance Due Date Last Done Comments Colon Cancer Screening-Colonoscopy 1955 Foot Exam 1955 DTaP/Tdap/Td Vaccine (1 - Tdap) 11/10/1967 Zoster Vaccine (1 of 2) 2006 Well Visit 65+ 2021 Hemoglobin A1C 12/02/2025 06/03/2025, 02/13/2025 Fall Risk Assessment 02/13/2026 02/13/2025 eGFR 02/13/2026 02/13/2025 Albumin Creatinine Ratio, Urine 04/02/2026 Depression Screening 04/02/2026 04/02/2025, 04/02/2025, 02/13/2025, Additional history exists Dilated Eye Exam 06/03/2026 06/03/2025 Lipid Panel 06/03/2026 06/03/2025, 02/13/2025 Prostate Cancer Screening-PSA 02/13/2027 02/13/2025 Hepatitis B Screening Completed 05/15/2025 Influenza Vaccine Completed 05/15/2025 Hepatitis C Screening Completed 06/03/2025 Pneumococcal vaccine 65+ Completed 06/03/2025 Procedures Procedure Name Priority Date/Time Associated Diagnosis Comments LIPID PANEL Routine 06/03/2025 3:32 PM CDT Type 2 diabetes mellitus without complication, without long-term current use of insulin (HCC) HEMOGLOBIN A1C Routine 06/03/2025 3:32 PM CDT Type 2 diabetes mellitus without complication, without long-term current use of insulin (HCC) HEPATITIS C ANTIBODY Routine 06/03/2025 3:32 PM CDT Need for hepatitis C screening test RETINAVUE SCANNER - OU - BOTH EYES Routine 06/03/2025 Type 2 diabetes mellitus without complication, without long-term current use of insulin (HCC) CT ABDOMEN PELVIS W CONTRAST Schedule Routine, Read Routine (OP Routine) 05/01/2025 3:36 PM CDT DIFFERENTIAL AUTO Routine 04/02/2025 2:2 3 PM CDT Easy bruisability LIPASE Routine 04/02/2025 2:23 PM CDT Abdominal pain PROTIME-INR Routine 04/02/2025 2:23 PM CDT Easy bruisability CBC WITH AUTO DIFFERENTIAL Routine 04/02/2025 2:23 PM CDT Easy bruisability ALBUMIN CREATININE RATIO, URINE Routine 04/02/2025 2:23 PM CDT Type 2 diabetes mellitus without complication, without long-term current use of insulin (HCC) EGFR Routine 02/13/2025 2:47 PM CDT Type 2 diabetes mellitus without complication, without long-term current use of insulin (HCC) PSA SCREEN Routine 02/13/2025 2:47 PM CDT Screening PSA (prostate specific antigen) from Last 3 Months or Most Recently Relevant to Health Maintenance Results * Hepatitis C antibody Blood (06/03/2025 3:32 PM CDT) Hep C Ab Nonreactive Nonreactive Comment: Interpretive Data Nonreactive: Antibodies to HCV not detected. Does NOT exclude the possibility of recent exposure to HCV. Equivocal: Equivocal for HCV antibodies. Supplemental molecular testing will be automatically performed to determine infection status in accordance with current CDC screening recommendations. Reactive: Positive for HCV antibodies. This may represent current or past HCV infection. Supplemental molecular testing will be automatically performed to determine current infection status in accordance with current CDC screening recommendations. Interpretive data was last revised on 2019. Testing performed by: [address] [id number] Blood 06/03/2025 3:32 PM CDT 06/03/2025 8:55 PM CDT us Braden Mckeon MD LAB MICROBIOLOGY - GENERAL ORDERABLES Final Result [facility] [address] [facility] Department [place] [address] * (ABNORMAL) Hemoglobin A1c (06/03/2025 3:32 PM CDT) Hgb A1C 9.1(H) 4.0 - 5.6 % Comment:Testing performed by : [address] [address] Estimated Average Glucose 214 mg/dL [facility]ER[facility] Comment: The ADA recommends reporting an estimated Average Glucose (eAG) with all Hemoglobin A1c results using the equation derived from a study of 507 normal and diabetic adults. Minority populations were underrepresented and children were not included. (Diabetes Care 31:7463-5399, 2008). The eAG is not equivalent to a fasting glucose. Testing performed by: [facility], [address] [place] [address]., [id number] Blood 06/03/2025 3:32 PM CDT 06/03/2025 8:55 PM CDT us Braden Mckeon MD LAB BLOOD ORDERABLE S Final Result [facility] [address] Department [place] [address] * (ABNORMAL) Lipid panel (06/03/2025 3:32 PM CDT) Cholesterol 141 30 - 199 mg/dL Comment: Interpretive Data [...] last revised on 2018. Testing performed by: [facility], [address] [place] [address]., [address] Triglycerides 206(H) <=149 mg/dL [facility] UNDERWOOD Comment: Interpretive Data [...] last revised on 2018. Testing performed by: [facility], [address] [place] [address]., [address] HDL 43 >=40 mg/dL LUNA Comment: Interpretive Data Ages [...] last revised on 2018. Testing performed by: [facility], [address] [place] [address]., [address] LDL, calculated 64 <=129 mg/dL [facility]NA Comment: Interpretive Data Ages [...] 2004;110:227 3. Fred Landa al. SILVIA Cardiol. 2020 December 19;5(5):540-548. doi: 10.1001/jamacardio.2020.0013 Current Interpretive Data was last revised on 2024. Testing performed by: [address] [address] Non-HDL Cholesterol 98 mg/dL LUNA Comment: Interpretive Data Ages < [...] last revised on 2018. Testing performed by: [facility], [address] [place] [address]., [address] Chol/HDL ratio 3 [facility] Comment:Testing performed by : [facility], [address] [place] [address]., [id number] Blood 06/03/2025 3:32 PM CDT 06/03/2025 8:55 PM CDT Braden Mckeon MD LAB BLOOD ORDERABLE S Final Result [facility] [address] Department [place] [address] * RetinaVue Scanner - OU - Both Eyes (06/03/2025) Anatomical Region Laterality Modality Head Fundus Photograp hy Retina 06/03/2025 Braden Mckeon MD OPHTH PHOTOGRAPHY F inal Result * (ABNORMAL) CT Abdomen Pelvis W Contrast (05/01/2025 3:36 PM CDT) Anatomical Region Laterality Modality Body N/A Computed Tomogra phy 05/01/2025 3:36 PM CDT Candace Provider IMG CT PROCEDURES Final R esult * (ABNORMAL) Differential, auto (04/02/2025 2:23 PM CDT) Neutrophil abs 5.61 1.50 - 6.50 K/cumm Comment:Testing performed by : [facility], [address] [place] [address]., [id number] Imm gran abs 0.11(H) 0.00 - 0.10 K/cumm CERNER CH Comment:Testing performed by : [facility], [address] [place] [address]., [address] Lymphocyte abs 1.87 0.80 - 3.30 K/cumm CERNER CH Comment:Testing performed by : [facility], [address] [place] [address]., [address] Monocyte abs 0.54 0.20 - 0.80 K/cumm CERNER CH Comment:Testing performed by : [facility], [address] [place] [address]., [address] Eosinophil abs 0.31 0.00 - 0.50 K/cumm CERNER CH Comment:Testing performed by : [facility], [address] [place] [address]., [address] Basophil abs 0.06 0.00 - 0.10 K/cumm CERNER CH Comment:Testing performed by : [address] [address] Neutrophil pct 66.0 % CERNER CH Comment: Interpretive Data Percent cell count reference ranges are not reported, since discordance with absolute values may lead to misinterpretation of CBC data. Current Interpretive Data was last revised on 2017. Testing performed by: [facility], [address] [place] [address]., [address] Imm gran pct 1.3 % CERNER CH Comment: Interpretive Data Percent cell count reference ranges are not reported, since discordance with absolute values may lead to misinterpretation of CBC data. Current Interpretive Data was last revised on 2017. Testing performed by: [address] [address] Lymphocyte pct 22.0 % CERNER CH Comment: Interpretive Data Percent cell count reference ranges are not reported, since discordance with absolute values may lead to misinterpretation of CBC data. Current Interpretive Data was last revised on 2017. Testing performed by: [address] [address] Monocyte pct 6.4 % CERNER CH Comment: Interpretive Data Percent cell count reference ranges are not reported, since discordance with absolute values may lead to misinterpretation of CBC data. Current Interpretive Data was last revised on 2017. Testing performed by: [address] [address] Eosinophil pct 3.6 % LUNA Comment: Interpretive Data Percent cell count reference ranges are not reported, since discordance with absolute values may lead to misinterpretation of CBC data. Current Interpretive Data was last revised on 2017. Testing performed by: [address] [address] Basophil pct 0.7 % [facility] Comment: Interpretive Data Percent cell count reference ranges are not reported, since discordance with absolute values may lead to misinterpretation of CBC data. Current Interpretive Data was last revised on 2017. Testing performed by: [address] [address] Blood 04/02/2025 2:23 PM CDT 04/02/2025 8:32 PM CDT Braden Mckeon MD LAB BLOOD ORDERABLE S Final Result [address] Department [place] [address] * (ABNORMAL) CBC with auto differential (04/02/2025 2:23 PM CDT) WBC 8.50 3.80 - 9.90 K/cumm Comment:Testing performed by : [address] [address] Hgb 11.8(L) 13.0 - 17.5 g/dL LUNA Comment:Testing performed by : [address] [address] Hct 36.6(L) 38.9 - 50.3 % [facility]NA Comment:Testing performed by : [address] [address] Plt 232 150 - 400 K/cumm LUNA Comment:Testing performed by : [address] [address] MPV 10.2 9.1 - 12.3 fL [facility] Comment:Testing performed by : [facility], [address] [place] [address]., [address] RBC 3.75(L) 4.30 - 5.80 M/cumm [facility] Comment:Testing performed by : [facility], [address] [place] [address]., [address] MCV 97.6(H) 81.3 - 96.4 fL [facility] Comment:Testing performed by : [facility], [address] [place] [address], [id number] MCH 31.5 27.1 - 33.3 pg [facility] Comment:Testing performed by : [facility], [address] [place] [address], [address] MCHC 32.2(L) 32.3 - 35.7 g/dL [facility] Comment:Testing performed by : [facility], [address] [place] [address], [address] RDW CV 14.1 11.1 - 14.9 % [facility]NA Comment:Testing performed by : [address], [address] RDW SD 50.2(H) 35.7 - 48.1 fL [facility] Comment:Testing performed by : [address], [address] NRBC abs 0.00 0.00 - 0.01 K/cumm [facility] Comment:Testing performed by : [address], [address] Blood 04/02/2025 2:23 PM CDT 04/02/2025 8:32 PM CDT us Braden Mckeon MD LAB BLOOD ORDERABLE S Final Result [address] Department [place] [address] * Albumin Creatinine Ratio, Urine (04/02/2025 2:23 PM CDT) Albumin Ur <12.0 mg/L Comment: Interpretive Data No reference range established. Current interpretive data was last revised 2019. Testing performed by: [facility] [address] [place] [address]., [address] Creatinine Ur 23.2 mg/dL LUNA Comment: Interpretive Data No reference range established. Current interpretive data was last revised 2019. Testing performed by: [facility], [address] [place] [address]., [address] Albumin Creatinine Ratio, Ur See Comment 1 - 29 LUNA Comment: Unable to calculate Testing performed by: [address] [address] Urine 04/02/2025 2:23 PM CDT 04/02/2025 8:32 PM CDT Braden Mckeon MD LAB URINE ORDERABLE S Final Result Performing Organization Address City/[facility] [[email or web address]] Co de Phone Number [facility] UNDER[facility]OD [phone] [place] [address] * Protime-INR (04/02/2025 2:23 PM CDT) PT 11.1 10.2 - 13.5 sec Comment:Testing performed by : [address] [address] INR 0.98 0.90 - 1.20 LUNA Comment: Interpretive data Oral anticoagulant therapeutic ranges: Venous thromboembolism prophylaxis or treatment: 2.0-3.0 CARDIOLOGY Standard range: 2.0-3.0 High-intensity range: 2.5-3.5 Refer to indication-specific guidelines for appropriate target ranges for prosthetic heart valve replacement. Current interpretive data was last revised on 2019. Testing performed by: [address] [address] Blood 04/02/2025 2:23 PM CDT 04/02/2025 8:39 PM CDT Braden Mckeon MD LAB BLOOD ORDERABLE S Final Result Performing Organization Address City/[facility]/ZIP Co de Phone Number [facility] [phone] [address] [place] [address] * Lipase (04/02/2025 2:23 PM CDT) Lipase 46 10 - 99 Units/L Comment:Testing performed by : [facility], [address] [place] [address]., [id number] Blood 04/02/2025 2:23 PM CDT 04/02/2025 8:32 PM CDT Braden Mckeon MD LAB BLOOD ORDERABLE S Final Result Performing Organization Address [facility] [[email or web address]] Co de Phone Number LUNA [phone] [address] Department [place] [address] * (ABNORMAL) eGFR (02/13/2025 2:47 PM CDT) [...] was last reviewed 2021. Testing performed by: [facility], [address] [place] [address]., [id number] Blood 02/13/2025 2:47 PM CDT 02/13/2025 8:04 PM CDT Braden Mckeon MD LAB BLOOD ORDERABLE S Final Result Performing Organization Address City/[facility]/ZIP Co de Phone Number [facility] [place] [phone] [address] Department [place] [address] * PSA screen (02/13/2025 2:47 PM CDT) [...] data last revised 21. Testing performed by: [facility], [address] [place] [address]., [id number] Blood 02/13/2025 2:47 PM CDT 02/13/2025 7:34 PM CDT Braden Mckeon MD LAB BLOOD ORDERABLE S Final Result [facility] [address] [address] Department [place] [address] from Last 3 Months or Most Recently Relevant to Health Maintenance Insurance MEDICARE [facility] MEDICARE SUPPLEMENT Care Teams Travel Registered Nurse Pacu Relationship Specialty Start Date End Date Braden Mckeon MD [address] [facility] [address] [place] [address] PCP - General Family Practice 02/13/25
== END 2025-06-10 14:23 | disposition home or self-care (01) ==
PROVIDERS: Emergency Provider Nurse Practitioner; PCP Family Medicine
DX: B34.9 Viral infection, unspecified (principal); E11.22 Type 2 diabetes mellitus with diabetic chronic kidney disease; N18.9 Chronic kidney disease, unspecified; I50.9 Heart failure, unspecified; Z79.899 Other long term (current) drug therapy; Z79.84 Long term (current) use of oral hypoglycemic drugs
CPT/HCPCS: 99213; G0463